=== PATIENT | male | born 1950 | race Caucasian/White ===

== ENCOUNTER → 2016-06-10 | Outpatient (CLI) | payer BC ==
--- NOTE | 2016-06-10 10:10 | XR ---
EXAMINATION TYPE: XR chest 2V DATE OF EXAM: 06/10/2016 10:02 AM COMPARISON: 11/06/2015 HISTORY: Shortness of breath TECHNIQUE: Frontal and lateral views of the chest are obtained. FINDINGS: Scattered senescent parenchymal changes noted. Hyperinflation compatible with COPD. No evidence for infiltrate. Postinflammatory scarring right upper lobe. Heart size is stable. Mediastinal structures are stable and grossly unremarkable. No evidence for hilar prominence. Degenerative changes dorsal spine. IMPRESSION: 1. No evidence for acute pulmonary disease.
== END | disposition home or self-care (01) ==
LOC: RADXRMAIN 09:53
PROVIDERS: ATTEND Family Medicine
DX: R07.89 Other chest pain (principal)
CPT/HCPCS: 71020

== ENCOUNTER 2018-07-26 23:53 | Inpatient (IN) | payer MEDICARE ==
[2018-07-27 00:31] LABS: Basophils # (A) 0.1 k/uL (0-0.2); Basophils % (A) 1 %; Eosinophils # (A) 0.3 k/uL (0-0.7); Eosinophils % (A) 3 %; HCT 41.6 % (39.0-53.0); HGB 14.2 gm/dL (13.0-17.5); Lymphocytes # (A) 3.5 k/uL (1.0-4.8); Lymphocytes % (A) 33 %; MCH 30.9 pg (25.0-35.0); MCHC 34.2 g/dL (31.0-37.0); MCV 90.3 fL (80.0-100.0); Mean Platelet Volume 6.8; Monocytes # (A) 0.4 k/uL (0-1.0); Monocytes % (A) 4 %; Neutrophils # (A) 6.1 k/uL (1.3-7.7); Neutrophils % (A) 57 %; Platelet Count 285 k/uL (150-450); RDW 14.3 % (11.5-15.5); WBC 10.6 k/uL (3.8-10.6)
--- NOTE | 2018-07-27 00:42 | XR ---
EXAM: XR Chest, 1 View CLINICAL HISTORY: ITS.REASON XR Reason: dyspnea TECHNIQUE: Frontal view of the chest. COMPARISON: Chest radiograph on 06/10/2016 FINDINGS: Hardware: None. Lungs/pleura: Large left-sided pneumothorax. Right basilar atelectasis and/or scarring. Stable mild scarring in the right upper lobe. Heart/mediastinum: Mild rightward shift of the mediastinal structures suggests tension component. Stable cardiomediastinal silhouette. Stable elevation of the right hemidiaphragm. Soft tissues: Unremarkable. Bones: No acute fracture. Upper abdomen: Normal. IMPRESSION: Large left-sided pneumothorax with probable mild tension component. <MYCVCSECTION> Critical Value Communications 07/27/18 00:43 Call Doctor Regarding Pneumothorax, called Dr. Ac on 07/27 00:43 (-04:00)
--- NOTE | 2018-07-27 00:43 | ED ---
SOB HPI - General Chief Complaint: Shortness of Breath Stated Complaint: SOB Time Seen by Provider: 07/26/18 23:57 Source: patient Mode of arrival: EMS Limitations: no limitations - History of Present Illness Initial Comments: This patient is a 67-year-old man who presents with complaint of dyspnea. He states that he feels like it is similar to previous pneumothorax that he had. The patient states that things should come on in the evening but were initially not that bad. He was feeling a little short of breath. He states that he had been checking his pulse oximetry readings at home with a home monitor and they were in the upper 80s. The patient states that after a period of time, probably a couple of hours he was feeling worse and the saturations were low 80s and one reading was 79. He then felt he should be seen here. The patient is denying chest pain. He denies any trauma. He states he has had previous pneumothorax on the right. He estimates this was therefore years ago. He states that he was told he had a bleb. Remainder of the review of systems is negative. MD Complaint: shortness of breath -: hour(s) Consistency: constant Improves With: nothing Worsens With: nothing Known History Of: other (Previous pneumothorax) Treatments Prior to Arrival: none - Related Data Home Oxygen Therapy: No Home Medications Medication Instructions Recorded Confirmed Atorvastatin [Lipitor] 80 mg PO HS 02/19/15 07/27/18 Sertraline [Zoloft] 100 mg PO DAILY 02/19/15 07/27/18 Levothyroxine Sodium [Synthroid] 150 mcg PO DAILY 07/27/18 07/27/18 Metoprolol Tartrate [Lopressor] 25 mg PO BID 07/27/18 07/27/18 Allergies Allergy/AdvReac Type Severity Reaction Status Date / Time venom-honey bee Allergy Swelling Verified 07/27/18 00:16 [bee venom (honey bee)] Review of Systems ROS Statement: Those systems with pertinent positive or pertinent negative responses have been documented in the HPI. ROS Other: All systems not noted in ROS Statement are negative. Constitutional: Denies: fever, chills Respiratory: Reports: dyspnea. Denies: cough, wheezes, hemoptysis Cardiovascular: Denies: chest pain, palpitations, edema, syncope Gastrointestinal: Denies: abdominal pain, vomiting, diarrhea, melena, nilson tochezia Genitourinary: Denies: dysuria, hematuria Musculoskeletal: Denies: back pain Skin: Denies: rash Neurological: Denies: headache Hematological/Lymphatic: Denies: easy bleeding Past Medical History Past Medical History: Coronary Artery Disease (CAD), Hyperlipidemia, Hypertension, Osteoarthritis (OA), Thyroid Disorder Additional Past Medical History / Comment(s): 1-16 dmitted with c/o sob dx pneumothorax. other past medicl hx includes: occ tinnitus, palpitations, fx rt hand(casted) skin ca., hypothyroid History of Any Multi-Drug Resistant Organisms: None Reported Past Surgical History: Back Surgery, Heart Catheterization With Stent Additional Past Surgical History / Comment(s): hemorroidectomy, back sx d/t bulgin disc, rt hand sx to repair severed tendon, colonoscopy x2, skin ca on nose removed. Past Anesthesia/Blood Transfusion Reactions: No Reported Reaction Date of Last Stent Placement:: unk Past Psychological History: No Psychological Hx Reported Smoking Status: Former smoker Past Alcohol Use History: None Reported Past Drug Use History: None Reported - Past Family History Mother Family Medical History: Dementia Father Family Medical History: Cancer, Liver Disease Additional Family Medical History / Comment(s): liver cancer General Exam Limitations: no limitations General appearance: alert, in distress Head exam: Present: atraumatic, normocephalic Eye exam: Present: normal appearance. Absent: scleral icterus, conjunctival injection ENT exam: Present: normal oropharynx Neck exam: Present: normal inspection Respiratory exam: Present: respiratory distress (Tachypnea), decreased breath sounds (Left-sided). Absent: wheezes, rales, rhonchi, stridor, chest wall tenderness, accessory muscle use, prolonged expiratory Cardiovascular Exam: Present: normal rhythm, tachycardia, normal heart sounds. Absent: systolic murmur, diastolic murmur, rubs, gallop GI/Abdominal exam: Present: soft. Absent: distended, tenderness, guarding, rebound, rigid, mass Extremities exam: Present: normal inspection, normal capillary refill. Absent: pedal edema, calf tenderness Back exam: Present: normal inspection. Absent: CVA tenderness (R), CVA tenderness (L) Neurological exam: Present: alert Skin exam: Present: warm, dry, intact, normal color. Absent: rash Course Vital Signs 07/26/18 07/27/18 07/27/18 23:55 00:51 01:00 Temperature 98.1 F Pulse Rate 109 H 101 H 96 Respiratory 24 16 17 Rate Blood Pressure 208/133 153/99 O2 Sat by Pulse 89 L 93 L 94 L Oximetry 07/27/18 07/27/18 07/27/18 01:10 01:20 01:30 Temperature Pulse Rate 92 101 H 104 H Respiratory 17 19 17 Rate Blood Pressure 152/100 151/97 151/97 O2 Sat by Pulse 95 94 L 95 Oximetry 07/27/18 07/27/18 07/27/18 01:40 01:50 02:00 Temperature Pulse Rate 91 94 91 Respiratory 18 19 16 Rate Blood Pressure 142/102 180/110 180/110 O2 Sat by Pulse 96 94 L 94 L Oximetry 07/27/18 07/27/18 07/27/18 02:10 02:20 02:30 Temperature Pulse Rate 95 98 92 Respiratory 16 17 24 Rate Blood Pressure 153/106 183/114 183/114 O2 Sat by Pulse 94 L 94 L 97 Oximetry 07/27/18 07/27/18 07/27/18 02:40 02:50 03:00 Temperature Pulse Rate 90 87 88 Respiratory 13 15 14 Rate Blood Pressure 154/135 132/90 132/90 O2 Sat by Pulse 97 98 97 Oximetry 07/27/18 07/27/18 07/27/18 03:10 03:20 03:30 Temperature Pulse Rate 86 89 86 Respiratory 14 15 13 Rate Blood Pressure 116/82 108/76 108/76 O2 Sat by Pulse 96 98 97 Oximetry 07/27/18 07/27/18 07/27/18 03:40 03:50 04:00 Temperature Pulse Rate 87 81 82 Respiratory 14 13 Rate Blood Pressure 99/73 108/63 108/63 O2 Sat by Pulse 98 99 99 Oximetry Procedures - Chest Tube Insertion Consent Obtained: written consent Side of Procedure: left Indication: Pneumothorax Placed on monitor/pulse oximetry: Yes Site Prep: Chloroprep, Sterile Drape Applied Local Anesthesia: Lidocaine 1% Insertion Site: Other (Anterior approach) Scalpel: #11 Open into Pleural Space Using: Trocar Tube Size ([place]): Other Returns: Air Sutured in Place: No (Self adhesive) Attached to Suction: Yes (Syringe) Repeat X-ray Results: Lung Inflated Patient Tolerated Procedure: other (Second placement required) Medical Decision Making - Medical Decision Making This patient is 67-year-old man with our appears to be spontaneous pneumothorax. I had discussion of risks and benefits regarding treatment of this, and patient is requesting to try the Thora Vent rather than tube thoracostomy. The initial placement did obtain approximately 100 mLs of air before there was no further air obtained. Chest x-ray does not show satisfactory placement, therefore I did replace the tube using a fresh kit, with approximately 500 mLs of air out by syringe. The chest x-ray does show good placement and reinflation of the lung. Discussed outpatient versus observation, the patient does feel better though there is some residual pneumothorax so he'll be admitted for 100% O2 case discussed with his physician Dr. Pinto, and will have consultation with cardiothoracic surgery. - Lab Data Result diagrams: 07/27/18 00:05 07/27/18 00:05 Lab Results 07/27/18 07/27/18 07/27/18 Range/Units 00:05 00:05 00:05 WBC 10.6 (3.8-10.6) k/uL RBC 4.60 (4.30-5.90) m/uL Hgb 14.2 (13.0-17.5) gm/dL Hct 41.6 (39.0-53.0) % MCV 90.3 (80.0-100.0) fL MCH 30.9 (25.0-35.0) pg MCHC 34.2 (31.0-37.0) g/dL RDW 14.3 (11.5-15.5) % Plt Count 285 (150-450) k/uL Neutrophils % 57 % Lymphocytes % 33 % Monocytes % 4 % Eosinophils % 3 % Basophils % 1 % Neutrophils # 6.1 (1.3-7.7) k/uL Lymphocytes # 3.5 (1.0-4.8) k/uL Monocytes # 0.4 (0-1.0) k/uL Eosinophils # 0.3 (0-0.7) k/uL Basophils # 0.1 (0-0.2) k/uL PT (9.0-12.0) sec INR (<1.2) APTT (22.0-30.0) sec D-Dimer (<0.60) mg/L FEU Sodium 142 (137-145) mmol/L Potassium 4.0 (3.5-5.1) mmol/L Chloride 105 (98-107) mmol/L Carbon Dioxide 25 (22-30) mmol/L Anion Gap 12 mmol/L BUN 20 (9-20) mg/dL Creatinine 1.10 (0.66-1.25) mg/dL Est GFR (CKD-EPI)AfAm 81 (>60 ml/min/1.73 sqM) Est GFR (CKD-EPI)NonAf 70 (>60 ml/min/1.73 sqM) Glucose 123 H (74-99) mg/dL Calcium 10.6 H (8.4-10.2) mg/dL Total Bilirubin 0.4 (0.2-1.3) mg/dL AST 32 (17-59) U/L ALT 31 (21-72) U/L Alkaline Phosphatase 105 (38-126) U/L Troponin I (0.000-0.034) ng/mL NT-Pro-B Natriuret Pep 48 pg/mL Total Protein 8.2 (6.3-8.2) g/dL Albumin 5.0 (3.5-5.0) g/dL 07/27/18 07/27/18 Range/Units 00:05 00:05 WBC (3.8-10.6) k/uL RBC (4.30-5.90) m/uL Hgb (13.0-17.5) gm/dL Hct (39.0-53.0) % MCV (80.0-100.0) fL MCH (25.0-35.0) pg MCHC (31.0-37.0) g/dL RDW (11.5-15.5) % Plt Count (150-450) k/uL Neutrophils % % Lymphocytes % % Monocytes % % Eosinophils % % Basophils % % Neutrophils # (1.3-7.7) k/uL Lymphocytes # (1.0-4.8) k/uL Monocytes # (0-1.0) k/uL Eosinophils # (0-0.7) k/uL Basophils # (0-0.2) k/uL PT 10.3 (9.0-12.0) sec INR 1.0 (<1.2) APTT 24.0 (22.0-30.0) sec D-Dimer 0.44 (<0.60) mg/L FEU Sodium (137-145) mmol/L Potassium (3.5-5.1) mmol/L Chloride (98-107) mmol/L Carbon Dioxide (22-30) mmol/L Anion Gap mmol/L BUN (9-20) mg/dL Creatinine (0.66-1.25) mg/dL Est GFR (CKD-EPI)AfAm (>60 ml/min/1.73 sqM) Est GFR (CKD-EPI)NonAf (>60 ml/min/1.73 sqM) Glucose (74-99) mg/dL Calcium (8.4-10.2) mg/dL Total Bilirubin (0.2-1.3) mg/dL AST (17-59) U/L ALT (21-72) U/L Alkaline Phosphatase (38-126) U/L Troponin I <0.012 (0.000-0.034) ng/mL NT-Pro-B Natriuret Pep pg/mL Total Protein (6.3-8.2) g/dL Albumin (3.5-5.0) g/dL - EKG Data -: EKG Interpreted by Md EKG shows normal: sinus rhythm, axis (Normal), intervals (Normal), QRS complexes (Normal), ST-T waves (Normal) Rate: normal (Rate 94 bpm) Disposition Clinical Impression: Spontaneous pneumothorax Disposition: ADMITTED IP TO THIS [facility] Condition: Good Is patient prescribed a controlled substance at d/c from ED?: No
[2018-07-27 00:46] LABS: Calcium 10.6 mg/dL (8.4-10.2); Total Bilirubin 0.4 mg/dL (0.2-1.3); Total Protein 8.2 g/dL (6.3-8.2)
[2018-07-27 01:09] LABS: D-Dimer 0.44 mg/L FEU (<0.60); Prothrombin Time 10.3 sec (9.0-12.0)
[2018-07-27] MEDS: MORPHINE SULFATE 4 MG/ML SYRINGE IV STA ×2 (01:28→02:19)
[2018-07-27] MEDS: LIDOCAINE 1% INJ 10MG/ML (20 ML MDV) SQ ONE ×2 (01:47→02:22)
--- NOTE | 2018-07-27 02:19 | XR ---
EXAM: XR Chest, 1 View CLINICAL HISTORY: ITS.REASON XR Reason: pneumo TECHNIQUE: Frontal view of the chest. COMPARISON: Chest radiograph on 07/27/2018 at 00 14 hours FINDINGS: Hardware: A left-sided pleural drainage catheter does not appear to be located within the left chest cavity. Lungs/pleura: Increased large left pneumothorax with atelectasis in the left lung. Similar atelectasis versus scarring in the right lower lung. Similar scarring in the right upper lobe. Heart/mediastinum: Mild rightward shift of the mediastinal structures again suggests mild tension component. Soft tissues: Probable nipple shadow projected over the left lower lung. Bones: No acute fracture. Upper abdomen: Normal. IMPRESSION: Increased large left pneumothorax. Mild rightward shift of the mediastinal structures again suggests tension component. A left-sided pleural drainage catheter does not appear to be located within the left chest cavity. <MYCVCSECTION> Critical Value Communications 07/27/18 02:25 Call Doctor Regarding Other, called AMENA Billings on 07/27 02:25 (-04:00)
--- NOTE | 2018-07-27 02:46 | XR ---
EXAM: XR Chest, 1 View CLINICAL HISTORY: ITS.REASON XR Reason: vent TECHNIQUE: Frontal view of the chest. COMPARISON: Chest radiograph on 07/27/2018 at 0157 hours FINDINGS: Hardware: Left pleural drainage catheter with attached syringe projected over the left lung apex. Lungs/pleura: Decreased left-sided pneumothorax with small residual pneumothorax most evident at the left lung base. Left basilar atelectasis. Similar atelectasis versus scarring at the right lung base. Similar mild atelectasis of the right upper lobe. Heart/mediastinum: Decreased rightward midline shift of the mediastinal structures. Soft tissues: Unremarkable. Bones: No acute fracture. Upper abdomen: Normal. IMPRESSION: 1. Left pleural drainage catheter with attached syringe projected over the left lung apex. 2. Decreased left-sided pneumothorax with small residual pneumothorax most evident at the left lung base.
[2018-07-27] MEDS ORDERED: ONDANSETRON 4 MG/2 ML VIAL IVP PRN (02:54)
[2018-07-27] MEDS ORDERED: NALOXONE 0.4 MG/ML 1 ML VIAL IV PRN (02:54)
[2018-07-27] MEDS ORDERED: HYDROmorphone 0.5 MG/0.5 ML SYRINGE IVP PRN (02:54)
[2018-07-27] MEDS ORDERED: MORPHINE SULFATE 4 MG/ML SYRINGE IV PRN (02:54)
[2018-07-27] MEDS: SODIUM CHLORIDE 0.9% 1,000 ML IV SCH ×2 (04:32→10:50)
[2018-07-27] MEDS: LEVOTHYROXINE 75 MCG TAB PO SCH (06:17)
[2018-07-27] MEDS: SERTRALINE 100 MG TAB PO SCH (08:18)
[2018-07-27] MEDS: KETOROLAC 30 MG/ML 1 ML VIAL IVP SCH ×3 (08:18→18:07)
[2018-07-27] MEDS: METOPROLOL TARTRATE 25 MG TAB PO SCH ×2 (08:18→22:18)
--- NOTE | 2018-07-27 08:52 | P.GSCN ---
<Tasia Chavez - Last Filed: 07/27/18 08:27> History of Present Illness Consult date: 07/27/18 Reason for Consult: Left-sided spontaneous pneumothorax, surgical recommendations Requesting physician: Oswald Ac History of present illness: This is a 67-year-old gentleman who follows on an outpatient basis with Dr. Jagdish Pinto. He has a previous medical history of spontaneous pneumothorax with bullous emphysema on the right status post VATS and blebectomy with mechanical pleurodesis on 10/30/2015, coronary artery disease with stent placement 6 years ago, hypertension, hyperlipidemia, hypothyroidism, and previous tobacco dependence. He presented to [facility] emergency room yesterday after feeling short of breath with decreased oxygen saturation for most of the day. He denied any chest pain or any other aggravating or alleviating symptoms. He states his shortness of breath started yesterday morning and he tried putting off coming to the emergency room, however as the day progressed and he wasn't getting any better he decided he better come in. He states his breathing was similar to his previous pneumothoraces. In the emergency room a chest x-ray was completed demonstrating a large left-sided pneumothorax. A Thora-vent was placed by the emergency room physicians initially without good placement and without expansion of the left lung. That thoravent was removed and a new one was placed, subsequent chest x-ray demonstrated improved expansion of the lung with small residual apical and basilar pneumothorax. Dr. Pollock from cardiothoracic surgery was consulted regarding thoravent management and surgical recommendations for thoracoscopy to the left side. Review of Systems Review of systems was completed and was negative except as noted - Respiratory Respiratory Comment(s): Decreased oxygen saturation Reports as per HPI, Reports dyspnea Past Medical History Past Medical History: Coronary Artery Disease (CAD), Hyperlipidemia, Hypertension, Osteoarthritis (OA), Thyroid Disorder Additional Past Medical History / Comment(s): February 2015 admitted with right- sided pneumothorax, and again in October 2015 right-sided pneumothorax. occ tinnitus, palpitations, fx rt hand(casted) skin ca., hypothyroid History of Any Multi-Drug Resistant Organisms: None Reported Past Surgical History: Back Surgery, Heart Catheterization With Stent Additional Past Surgical History / Comment(s): hemorroidectomy, back sx d/t bulgin disc, rt hand sx to repair severed tendon, colonoscopy x2, skin ca on nose removed. Right-sided VATS with blebectomy and mechanical pleurodesis on 10/30/2015 Past Anesthesia/Blood Transfusion Reactions: No Reported Reaction Date of Last Stent Placement:: unk Past Psychological History: No Psychological Hx Reported Smoking Status: Former smoker Past Alcohol Use History: None Reported Past Drug Use History: None Reported - Past Family History Mother Family Medical History: Dementia Father Family Medical History: Cancer, Liver Disease Additional Family Medical History / Comment(s): liver cancer Medications and Allergies Home Medications Medication Instructions Recorded Confirmed Type Atorvastatin [Lipitor] 80 mg PO HS 02/19/15 07/27/18 History Sertraline [Zoloft] 100 mg PO DAILY 02/19/15 07/27/18 History Levothyroxine Sodium [Synthroid] 150 mcg PO DAILY 07/27/18 07/27/18 History Metoprolol Tartrate [Lopressor] 25 mg PO BID 07/27/18 07/27/18 History Allergies Allergy/AdvReac Type Severity Reaction Status Date / Time venom-honey bee Allergy Swelling Verified 07/27/18 00:16 [bee venom (honey bee)] Surgical - Exam Vital Signs Temp Pulse Resp BP Pulse Ox 98.1 F 109 H 24 208/133 89 L 07/26/18 23:55 07/26/18 23:55 07/26/18 23:55 07/26/18 23:55 07/26/18 23:55 - General well developed, well nourished, no distress, no pain, obese - Eyes PERRL, normal ocular movement - ENT no hearing loss - Neck no masses, no bruits, trachea midline - Respiratory Lungs sounds diminished on the left. Respirations even, nonlabored. Currently on nonrebreather with oxygen saturation 100%. Left-sided thoravent present, positive air leak. - Cardiovascular S1, S2 present. Regular rate and rhythm. Palpable peripheral pulses bilaterally. No edema present. No calf pain or tenderness noted. - Abdomen Abdomen: soft, non tender, bowel sounds - Genitourinary Deferred - Rectum Deferred - Integumentary no rash, no growths - Neurologic normal coordination, normal sensation - Musculoskeletal normal gait, normal posture - Psychiatric oriented to time, oriented to person, oriented to place, speech is normal, memory intact Results - Labs 07/27/18 00:05 07/27/18 00:05 Abnormal Lab Results - Last 24 Hours (Table) 07/27/18 Range/Units 00:05 Glucose 123 H (74-99) mg/dL Calcium 10.6 H (8.4-10.2) mg/dL Diabetes panel 07/27/18 Range/Units 00:05 Sodium 142 (137-145) mmol/L Potassium 4.0 (3.5-5.1) mmol/L Chloride 105 (98-107) mmol/L Carbon Dioxide 25 (22-30) mmol/L BUN 20 (9-20) mg/dL Creatinine 1.10 (0.66-1.25) mg/dL Glucose 123 H (74-99) mg/dL Calcium 10.6 H (8.4-10.2) mg/dL AST 32 (17-59) U/L ALT 31 (21-72) U/L Alkaline Phosphatase 105 (38-126) U/L Total Protein 8.2 (6.3-8.2) g/dL Albumin 5.0 (3.5-5.0) g/dL Calcium panel 07/27/18 Range/Units 00:05 Calcium 10.6 H (8.4-10.2) mg/dL Albumin 5.0 (3.5-5.0) g/dL Pituitary panel 07/27/18 Range/Units 00:05 Sodium 142 (137-145) mmol/L Potassium 4.0 (3.5-5.1) mmol/L Chloride 105 (98-107) mmol/L Carbon Dioxide 25 (22-30) mmol/L BUN 20 (9-20) mg/dL Creatinine 1.10 (0.66-1.25) mg/dL Glucose 123 H (74-99) mg/dL Calcium 10.6 H (8.4-10.2) mg/dL Adrenal panel 07/27/18 Range/Units 00:05 Sodium 142 (137-145) mmol/L Potassium 4.0 (3.5-5.1) mmol/L Chloride 105 (98-107) mmol/L Carbon Dioxide 25 (22-30) mmol/L BUN 20 (9-20) mg/dL Creatinine 1.10 (0.66-1.25) mg/dL Glucose 123 H (74-99) mg/dL Calcium 10.6 H (8.4-10.2) mg/dL Total Bilirubin 0.4 (0.2-1.3) mg/dL AST 32 (17-59) U/L ALT 31 (21-72) U/L Alkaline Phosphatase 105 (38-126) U/L Total Protein 8.2 (6.3-8.2) g/dL Albumin 5.0 (3.5-5.0) g/dL - Imaging Chest x-ray: report reviewed, image reviewed EKG: image reviewed Assessment and Plan Assessment: 1. Left-sided spontaneous pneumothorax, status post thoravent placement by the emergency room physicians 2. History of spontaneous pneumothorax 2 with bullous emphysema on the right side, status post VATS with blebectomy and mechanical pleurodesis on 10/30/2015 3. History of coronary artery disease with stent placement 6 years ago 4. Hypertension 5. Hyperlipidemia 6. Hypothyroidism 7. Previous tobacco dependence Plan: The patient was seen and examined at the bedside. Chart/diagnostics were reviewed. The case will be discussed in detail with Dr. Pollock. The patient is currently in no acute distress. States pain is well-controlled, denies shortness of breath. We will obtain follow-up chest x-ray. If pneumothorax still exists thoravent will be placed to suction. Wean O2 as tolerated. Incentive spirometry ordered, encourage use 10 times every hour while awake. Encourage continued smoking cessation. Toradol added for pain control. Increase activity, ambulate as tolerated. Medical management of other comorbidities per primary care service. Will make further recommendations regarding thoravent management and possibility of thoracoscopy once the patient has been seen and examined by Dr. Pollock. Thank you for this consult. We look forward to working with you in the care of this patient. Time with Patient: Greater than 30 <Sergio Pollock - Last Filed: 08/01/18 13:48> Surgical - Exam Vital Signs Temp Pulse Resp BP Pulse Ox 98.1 F 109 H 24 208/133 89 L 07/26/18 23:55 07/26/18 23:55 07/26/18 23:55 07/26/18 23:55 07/26/18 23:55 Results - Labs 07/30/18 07:31 07/30/18 07:31 Assessment and Plan Plan: The patient was seen and examined. I agree with the above assessment and plan. The patient is a 67-year-old male with a history of right VATS secondary to spontaneous pneumothorax [place] [address] Alberto. He presented to the emergency department last night with recurrence of his shortness of breath. Workup revealed a large spontaneous pneumothorax on the left side. A Thoravent was placed in the emergency department and the patient's chest x-ray today reveals near resolution of his pneumothorax. A computed tomography scan of the chest was ordered. At this point we will continue with conservative therapy. He may need a left VATS with bleb resection on this admission.
--- NOTE | 2018-07-27 09:35 | XR ---
EXAMINATION TYPE: XR chest 1V portable DATE OF EXAM: 07/27/2018 COMPARISON: 07/27/2018 HISTORY: Follow-up pneumothorax TECHNIQUE: Single frontal view of the chest is obtained. FINDINGS: There is change in position of the left-sided Thoravent with coiled thoracostomy tube bein g. There is increasing size of the left-sided pneumothorax now having 4.2 cm in maximum pleural separ ation at the left lung base. There is approximately 1 cm of maximal pleural separation at the left mi dlung and 2.3 cm at the left lung apex. Resultant multifocal left perihilar subsegmental atelectasis is seen. Cardiomediastinal silhouette is overall midline given patient positioning. Chronic pleural r eaction at the right costophrenic angle is seen. Multifocal right-sided atelectasis is also noted. IMPRESSION: Thoracostomy tubing of the Thora vent appears unchanged in position, possibly kinked as there is increasing size of the left pneumothorax in comparison to the prior. Volume is estimated at approximately 30%. A Bledsoe level critical message alert has been initiated for Tasia Chavez via the [employer]ical Results System on 07/27/2018 9:33 AM. This message alert has been sent to Tasia Chavez via the pr eferences provided by the clinician for the receipt of Radiology Critical Findings. Message ID [id number].
--- NOTE | 2018-07-27 16:51 | CT ---
EXAMINATION TYPE: CT chest wo con DATE OF EXAM: 07/27/2018 COMPARISON: Chest x-ray 07/27/2018, prior CT chest 10/28/2015 HISTORY: Pneumothorax. Evaluate bullous disease. CT DLP: 589.6 mGycm. Automated Exposure Control for Dose Reduction was Utilized. TECHNIQUE: CT scan of the thorax is performed without IV contrast. FINDINGS: LUNGS: Postop changes are noted in the right upper chest for previous apical bullous disease, volume loss is present in the right hemithorax, difficult to exclude tension pneumothorax, correlate with pa tient's chest tube on the left. There is some paraseptal emphysematous change in the right upper lobe . Basilar scarring is noted on the right. Large left sided pneumothorax is present. There is a thorac ic vent present with the distal tip along the left pleural margin in the upper left hemithorax. Basil ar consolidation is present. Extensive bullous emphysematous changes are present especially in the an terior margin of the collapsed lung. MEDIASTINUM: Lack of IV contrast is noted to limit evaluation for mediastinal and especially hilar ad enopathy. There are no definitive greater than 1 cm hilar or mediastinal lymph nodes. No cardiomega ly or pericardial effusion is seen. There are coronary artery calcifications present. OTHER: Liver shows low attenuation likely due to hepatic steatosis. Subcutaneous emphysema present in the soft tissues of the anterior left upper chest IMPRESSION: Extensive bullous emphysematous change. Postop changes. Correlate to exclude tension pneu mothorax.
[2018-07-27] MEDS ORDERED: IPRATROPIUM-ALBUTEROL 3 ML NEB IH STA (18:12)
--- NOTE | 2018-07-27 19:03 | XR ---
EXAMINATION: XR chest 1V portable DATE AND TIME: 07/27/2018 6:30 PM CLINICAL INDICATION: Resp distress COMPARISON: 07/27/2018 at 9:06 AM FINDINGS: AP portable upright radiograph. The left pneumothorax has increased when compared to the prior study. The previous upper and mid and lower measurements were 2.3 cm, 1.0 cm, and 4.2 cm. The current upper and mid and lower measurements are 2.2 cm, 3.0 cm, and 5.0 cm. There is associated mild compressive left atelectasis. On the right, the lung appears clear, a small pleural effusion is redemonstrated, and there is no pne umothorax. Discussed findings with the patient's nurse just now, to ensure intact communications. IMPRESSION: INCREASING PNEUMOTHORAX.
[2018-07-27 20:17] LABS: Glucose,Whole Blood 168 mg/dL (75-99)
[2018-07-27] MEDS: MIDAZOLAM (PF) 2 MG/2 ML VIAL IV ONE ×2 (20:40→20:52)
[2018-07-27] MEDS ORDERED: MIDAZOLAM (PF) 2 MG/2 ML VIAL IV ONE (21:01)
--- NOTE | 2018-07-27 21:59 | XR ---
EXAMINATION: XR chest 1V portable DATE AND TIME: 07/27/2018 9:23 PM CLINICAL INDICATION: PHH; chest tube placement TECHNIQUE: Departmental protocol COMPARISON: 07/27/2018 radiograph at 6:23 PM FINDINGS: The present study was obtained in the AP portable supine position. Since prior study a left chest tub e is been placed. The left pleural catheter is redemonstrated. There is interval improvement in the volume of pneumothorax, with prominent degree. On the supine rad iograph, the remaining pneumothorax is related to the left hemidiaphragm. The mediastinum is currently midline. IMPRESSION: INTERVAL IMPROVEMENT POST LEFT CHEST TUBE PLACEMENT.
[2018-07-27] MEDS: ATORVASTATIN 80 MG TAB PO SCH (22:18)
[2018-07-27] MEDS: HYDROcodone/APAP 5-325MG 1 EACH TAB PO PRN (22:53)
[2018-07-28] MEDS: KETOROLAC 30 MG/ML 1 ML VIAL IVP SCH ×4 (00:17→17:31)
[2018-07-28] MEDS: HYDROcodone/APAP 5-325MG 1 EACH TAB PO PRN ×3 (04:47→22:00)
[2018-07-28 05:04] LABS: Basophils % (A) 0 %; Eosinophils # (A) 0.2 k/uL (0-0.7); Eosinophils % (A) 3 %; HCT 35.4 % (39.0-53.0); HGB 11.6 gm/dL (13.0-17.5); Lymphocytes # (A) 1.4 k/uL (1.0-4.8); Lymphocytes % (A) 22 %; MCHC 32.7 g/dL (31.0-37.0); MCV 91.9 fL (80.0-100.0); Mean Platelet Volume 6.6; Monocytes # (A) 0.3 k/uL (0-1.0); Monocytes % (A) 5 %; Neutrophils # (A) 4.4 k/uL (1.3-7.7); Neutrophils % (A) 69 %; Platelet Count 156 k/uL (150-450); RBC 3.86 m/uL (4.30-5.90); RDW 14.4 % (11.5-15.5); WBC 6.3 k/uL (3.8-10.6)
--- NOTE | 2018-07-28 05:21 | OP ---
OPERATIVE REPORT DATE OF PROCEDURE: 07/27/2018 PREOPERATIVE DIAGNOSIS: Spontaneous left pneumothorax. POSTOPERATIVE DIAGNOSE: Spontaneous left pneumothorax. PROCEDURE: Placement of left pleural chest tube. SURGEON: Sergio Pollock MD TERMINAL OPERATOR: None. ANESTHESIA: Local with IV sedation. COMPLICATIONS: None. INDICATION: The patient is a 67-year-old male with a history of right-sided spontaneous pneumothorax, status post VATS with bleb resection and pleurodesis, who presented to the emergency department yesterday with his first episode of left-sided pneumothorax. CT scan revealed several blebs. A Thora-Vent was placed in the emergency department. I was called urgently this evening because the patient has become acutely hypoxic and dyspneic. Chest x-ray revealed worsening left-sided pneumothorax. The Thora- Vent does not appear to be functioning properly. Placement of a chest tube was recommended. The risks, benefits, and alternatives of this procedure were discussed with the patient. All his questions were answered. Consent was obtained. FINDINGS: There was a large mcknight of air upon entry into the left pleural space. PROCEDURE IN DETAIL: In the ICU, the patient's left chest and flank were prepped and draped in the usual sterile fashion. A total of 4 mg of intravenous Versed was administered along with 4 mg of intravenous morphine. Approximately 20 mL of local anesthetic was infiltrated in the skin and subcutaneous tissue as well. An incision was made at approximately the 6th intercostal space along the anterior axillary line. Dissection was taken down through the subcutaneous tissue. The left pleural space was entered bluntly. A large mcknight of air was noted upon entry to the pleural space. A straight 28-Welsh chest tube was carefully inserted into the pleural space. It was secured to an atrium with evidence of air leak. Chest tube was secured to the skin using Ethibond sutures. Sterile dressing was applied. A followup chest x-ray revealed good placement of the chest tube with near resolution of the pneumothorax. The patient appeared to tolerate the procedure well. There were no immediate complications. MMODL / IJN: [id number] / MTDD
[2018-07-28 05:41] LABS: African American GFR (CKD) >90 (>60 ml/min/1.73 sqM); Anion Gap 6 mmol/L; Blood Urea Nitrogen 18 mg/dL (9-20); Calcium 8.9 mg/dL (8.4-10.2); Carbon Dioxide 29 mmol/L (22-30); Chloride 106 mmol/L (98-107); Glucose 95 mg/dL (74-99); Potassium 4.3 mmol/L (3.5-5.1); Sodium 141 mmol/L (137-145)
[2018-07-28] MEDS: LEVOTHYROXINE 75 MCG TAB PO SCH (06:08)
--- NOTE | 2018-07-28 07:47 | XR ---
EXAMINATION TYPE: XR chest 1V portable DATE OF EXAM: 07/28/2018 CLINICAL HISTORY: Difficulty breathing and left-sided chest tube progress study. TECHNIQUE: Single AP portable upright view of the chest is obtained. COMPARISON: Chest x-ray and CT chest from one day earlier FINDINGS: There is persistent left lateral chest tube with small inferior lateral left pneumothorax and adjacent subcutaneous emphysema with lateral left basilar compressive atelectasis. No mediastinal shift. Background chronic emphysematous change with scattered right lateral and basilar parenchymal scarring. Cardiac silhouette size is stable and upper limits of normal. There is right medial suprahi lar surgical change and scarring redemonstrated. Osseous structures are intact. IMPRESSION: Overall stable findings, persistent but stable small lateral left basilar pneumothorax despite chest tube placement. Chronic emphysematous and parenchymal changes redemonstrated.
[2018-07-28] MEDS: METOPROLOL TARTRATE 25 MG TAB PO SCH ×2 (08:47→22:00)
--- NOTE | 2018-07-28 08:49 | P.PN ---
Subjective Progress Note Date: 07/28/18 Principal diagnosis: Left sided spontaneous pneumothorax. Previous medical history of spontaneous pneumothorax with bullous emphysema on the right status post VATS and blebectomy with mechanical pleurodesis on 10/30/2015, coronary artery disease with stent placement, hypertension, hyperlipidemia, hypothyroidism, and previous tobacco dependence POD #2 placement of Thora-vent by emergency room physicians POD #1 placement of left thoracostomy tube The patient is currently sitting up in bed in no acute distress the intensive care unit. He was transferred last night after he developed respiratory distress, chest x-ray was completed demonstrating increase in left pneumothorax. Left thoracostomy tube was placed by Dr. Pollock at the bedside in the intensive care unit last night with expansion of the left lung. Patient's oxygenation improved, and he stated he felt better. States pain is controlled on current medication regimen. No new complaints. Objective - Vital Signs Vital signs: Vital Signs Temp 97.6 F 07/28/18 04:00 Pulse 66 07/28/18 07:00 Resp 16 07/28/18 07:00 BP 126/80 07/28/18 07:00 Pulse Ox 95 07/28/18 07:00 Intake & Output 07/27/18 07/28/18 07/28/18 18:59 06:59 18:59 Intake Total 230 20 Output Total 1000 542 5 Balance -1000 -312 15 Weight 116.7 kg Intake: IV 230 20 Sodium Chloride 0.9% 1, 180 20 000 ml @ 150 mls/hr IV . Q6H40M [facility] Rx#:[id number] ceFAZolin 1,000 mg In 50 Sodium Chloride 0.9% 50 ml @ 100 mls/hr IVPB Q8HR [facility] Rx#:[id number] Output: Chest Tube Drainage 92 5 Chest Tube Left 80 5 Thora-Vent Left Upper 12 Anterior Chest Urine 1000 450 Other: Voiding Method Urinal Urinal - Constitutional General appearance: Present: cooperative, no acute distress, obese - Respiratory Details: Lungs sounds diminished on the left. Respirations even, nonlabored. Currently on 6 L high flow nasal cannula with oxygen saturation 95%. Able to achieve 2500 mL on his incentive spirometry. Left-sided thoravent present. Left-sided pleural chest tube present, connected to wall suction, 75 mL serous drainage overnight, 90 mL since placement, positive air leak. - Cardiovascular Details: S1, S2 present. Regular rate and rhythm. Palpable peripheral pulses bilaterally. No edema present. No calf pain or tenderness noted. SCDs present. - Gastrointestinal Gastrointestinal Comment(s): Abdomen soft, nontender, nondistended. Active bowel sounds present 4 qu adrants. Tolerating diet. - Genitourinary Genitourinary Comment(s): Voiding clear, yellow urine. - Integumentary Integumentary Comment(s): Skin is warm and dry with evidence of good perfusion. Left pleural chest tube site and thoravent site covered with dry intact dressing. - Neurologic Neurologic: Present: CNII-XII intact - Musculoskeletal Musculoskeletal: Present: gait normal, strength equal bilaterally - Psychiatric Psychiatric: Present: A&O x's 3, appropriate affect, intact judgment & insight - Allied health notes Allied health notes reviewed: nursing - Labs CBC & Chem 7: 07/28/18 04:42 07/28/18 04:42 Labs: Abnormal Lab Results - Last 24 Hours (Table) 07/27/18 07/28/18 Range/Units 20:06 04:42 RBC 3.86 L (4.30-5.90) m/uL Hgb 11.6 L (13.0-17.5) gm/dL Hct 35.4 L (39.0-53.0) % POC Glucose (mg/dL) 168 H (75-99) mg/dL - Imaging and Cardiology Chest x-ray: report reviewed, image reviewed Assessment and Plan Assessment: 1. Left-sided spontaneous pneumothorax, status post thoravent placement by the emergency room physicians 2. Acute hypoxic respiratory distress, increased pneumothorax, status post left thoracostomy tube placement 3. History of spontaneous pneumothorax 2 with bullous emphysema on the right side, status post VATS with blebectomy and mechanical pleurodesis on 10/30/2015 4. History of coronary artery disease with stent placement 6 years ago 5. Hypertension 6. Hyperlipidemia 7. Hypothyroidism 8. Previous tobacco dependence Plan: 1. Continue left thoracostomy tube to continuous wall suction. Monitor for air leak resolution. 2. Will discontinue thoravent today. 3. Wean O2 as tolerated. Encourage incentive spirometry use 10 times every hour while awake. 4. Encourage continued smoking cessation. 5. Pain control with current medication regimen. 6. Will monitor daily x-rays. 7. Increase activity, ambulate as tolerated around the room. Nursing to add extension tubing to suction to allow patient to ambulate. 8. Patient likely will need left-sided VATS with bleb resection and mechanical pleurodesis, timing to be determined. 9. Medical management of other comorbidities per primary care service. 10. Patient is currently stable and does not need ICU care. Will place transfer orders back to [facility] with telemetry, may transfer when bed available. 11. Will continue to monitor and make further recommendations as patient progresses. Time with Patient: Greater than 30
--- NOTE | 2018-07-28 09:48 | P.HPIM ---
History of Present Illness H&P Date: 07/27/18 This is a 67-year-old gentleman presented to the ER with complaints of worsening dyspnea since yesterday morning, in a patient with history of prior nicotine dependence, COPD, spontaneous pneumothorax, with bullous emphysema, blebectomy, pleurodesis, VATS, CAD with stent, hyperlipidemia, hypertension, osteoarthritis, hypothyroidism and multiple other medical issues. States his dyspnea presentation similar to prior pneumothoraxes.Reports decreased O2 saturation at home.Denies fever or chills, cough, hemoptysis. Denies chest pain, palpitations. Denies nausea vomiting diarrhea or abdominal pain. Denies lightheadedness dizziness or focal deficits. Denies headache. O2 sat on admission, 89% on room air, tachypneic, tachycardic, afebrile, normal WBC. EKG sinus rhythm. Chest x-ray reporting a large left-sided pneumothorax. Thoravent placed regarding spontaneous pneumothorax with mild tension component. Chest x- ray post Thoravent reported decreased left-sided pneumothorax with small resi dual pneumothorax at the left lung base. Thoravent replaced ;post chest x-ray reporting interval improvement. Cardiothoracic surgery consulted. Review of Systems ROS Statement: Those systems with pertinent positive or pertinent negative responses have been documented in the HPI. ROS Other: All systems not noted in ROS Statement are negative. Past Medical History Past Medical History: Coronary Artery Disease (CAD), Hyperlipidemia, Hypertension, Osteoarthritis (OA), Thyroid Disorder Additional Past Medical History / Comment(s): 1-5-16 dmitted with c/o sob dx pn eumothorax. other past medicl hx includes: occ tinnitus, palpitations, fx rt hand(casted) skin ca., hypothyroid History of Any Multi-Drug Resistant Organisms: None Reported Past Surgical History: Back Surgery, Heart Catheterization With Stent Additional Past Surgical History / Comment(s): hemorroidectomy, back sx d/t bulgin disc, rt hand sx to repair severed tendon, colonoscopy x2, skin ca on nose removed. Past Anesthesia/Blood Transfusion Reactions: No Reported Reaction Date of Last Stent Placement:: unk Past Psychological History: No Psychological Hx Reported Smoking Status: Former smoker Past Alcohol Use History: None Reported Past Drug Use History: None Reported - Past Family History Mother Family Medical History: Dementia Father Family Medical History: Cancer, Liver Disease Additional Family Medical History / Comment(s): liver cancer Medications and Allergies Home Medications Medication Instructions Recorded Confirmed Type Atorvastatin [Lipitor] 80 mg PO HS 02/19/15 07/27/18 History Sertraline [Zoloft] 100 mg PO DAILY 02/19/15 07/27/18 History Levothyroxine Sodium [Synthroid] 150 mcg PO DAILY 07/27/18 07/27/18 History Metoprolol Tartrate [Lopressor] 25 mg PO BID 07/27/18 07/27/18 History Allergies Allergy/AdvReac Type Severity Reaction Status Date / Time venom-honey bee Allergy Swelling Verified 07/27/18 00:16 [bee venom (honey bee)] Physical Exam Vitals: Vital Signs Temp Pulse Pulse Resp BP BP Pulse Ox 07/27/18 04:37 18 07/27/18 04:25 97.4 F L 82 16 141/82 100 07/27/18 04:00 82 108/63 99 07/27/18 03:50 81 13 108/63 99 07/27/18 03:40 87 14 99/73 98 07/27/18 03:30 86 13 108/76 97 07/27/18 03:20 89 15 108/76 98 07/27/18 03:10 86 14 116/82 96 07/27/18 03:00 88 14 132/90 97 07/27/18 02:50 87 15 132/90 98 07/27/18 02:40 90 13 154/135 97 07/27/18 02:30 92 24 183/114 97 07/27/18 02:20 98 17 183/114 94 L 07/27/18 02:10 95 16 153/106 94 L 07/27/18 02:00 91 16 180/110 94 L 07/27/18 01:50 94 19 180/110 94 L 07/27/18 01:40 91 18 142/102 96 07/27/18 01:30 104 H 17 151/97 95 07/27/18 01:20 101 H 19 151/97 94 L 07/27/18 01:10 92 17 152/100 95 07/27/18 01:00 96 17 153/99 94 L 07/27/18 00:51 101 H 16 93 L 07/26/18 23:55 98.1 F 109 H 24 208/133 89 L Intake and Output 07/26/18 07/27/18 07/27/18 22:59 06:59 14:59 Other: Weight 113.398 kg PHYSICAL EXAM: VITAL SIGNS: As above GENERAL: Sitting up at side of bed, no acute distress HEENT: Conjunctivae normal. eyes normal. NECK: No JVD. No thyroid enlargement. No LNs CARDIOVASCULAR: S1, S2 regular.. No murmur RESPIRATION: Breath sounds diminished in the bases, more so on the left. No rhonchi or crackles. No wheezing. No bronchial breathing. Left-sided thoravent present, ABDOMEN: Soft, nontender . No guarding. no masses palpable. Bowel sounds heard. LEGS: No edema. no swelling PSYCHIATRY: Alert and oriented X3, mood and affect normal. NERVOUS SYSTEM: Cranial N 2-12 grossly normal. Moves all 4 limbs. Diffuse weakness No focal deficits. Strength and sensation grossly intact.. Skin: no lesions, no rash Joints: No active swelling. No inflammation. Lymphatic system. No LN neck axilla or groin. Results CBC & Chem 7: 07/28/18 04:42 07/28/18 04:42 Labs: Abnormal Lab Results - Last 24 Hours (Table) 07/27/18 Range/Units 00:05 Glucose 123 H (74-99) mg/dL Calcium 10.6 H (8.4-10.2) mg/dL Thrombosis Risk Factor Assmnt - Choose All That Apply Any of the Below Risk Factors Present?: Yes Each Factor Represents 1 point: Obesity (BMI >25), Serious lung disease incl. pneumonia (< 1month) Each Risk Factor Represents 2 Points: Age 61-74 years Thrombosis Risk Factor Assessment Total Risk Factor Score: 4 Thrombosis Risk Factor Assessment Level: Moderate Risk Assessment and Plan Assessment: -Spontaneous pneumothorax,Left sided, status post placement of Thoravent, in a patient with history of spontaneous Pneumothorax, bullous emphysema on the right side,VATS, Blebectomy, mechanical pleurodesis -History of nicotine dependence -CAD with stent -Hypertension -Hyperlipidemia -Hypothyroidism Plan: Continue on current medication regime ,monitoring and symptomatic treatment. Aggressive pulmonary toileting with incentive spirometer ordered. Maintain IV antibiotics of cefazolin. Increase ambulation as tolerated. Cardiothoracic surgery consulted with recommendations pending. Home meds have been reviewed and resumed. GI and DVT prophylaxis in place. Further recommendations to follow. The impression and plan of care has been dictated as directed. : I performed a history and examination of this patient, discussed the same with the dictator. I agree with the dictator's note ,documented as a scribe. Any additional findings or plans will be noted. Time taken: 35 minutes
[2018-07-28] MEDS: SERTRALINE 100 MG TAB PO SCH (10:04)
--- NOTE | 2018-07-28 10:14 | P.PN ---
Subjective Progress Note Date: 07/28/18 Principal diagnosis: Spontaneous left pneumothorax This is a 67-year-old gentleman presented to the ER with complaints of worsening dyspnea since yesterday morning, in a patient with history of prior nicotine dependence, COPD, spontaneous pneumothorax, with bullous emphysema, blebectomy, pleurodesis, VATS, CAD with stent, hyperlipidemia, hypertension, osteoarthritis, hypothyroidism and multiple other medical issues. States his dyspnea presentation similar to prior pneumothoraxes.Reports decreased O2 saturation at home.Denies fever or chills, cough, hemoptysis. Denies chest pain, palpitations. Denies nausea vomiting diarrhea or abdominal pain. Denies lightheadedness dizziness or focal deficits. Denies headache. O2 sat on admission, 89% on room air, tachypneic, tachycardic, afebrile, normal WBC. EKG sinus rhythm. Chest x-ray reporting a large left-sided pneumothorax. Thoravent placed regarding spontaneous pneumothorax with mild tension component. Chest x- ray post Thoravent reported decreased left-sided pneumothorax with small residual pneumothorax at the left lung base. Thoravent replaced ;post chest x- ray reporting interval improvement. Cardiothoracic surgery consulted. 07/28/[address] reported extensive ileus emphysematous change, correlate to exclude tension pneumothorax. Last night patient developed respiratory distress, hypoxic. Patient was transferred to the ICU. Chest x-ray performed reporting worsening left-sided pneumothorax. Left Thoracostomy tube placed by cardiothoracic surgery with interval improvement per chest x-ray. Pain c ontrolled. Good diet intake this morning with no nausea vomiting or diarrhea. Telemetry sinus rhythm. Maintaining O2 sats of 96% on 6 L nasal cannula. Incentive spirometer up to 2500. Denies chest pain, palpitations. Afebrile, normal WBC. Objective - Vital Signs Vital signs: Vital Signs Temp 98.0 F 07/28/18 08:00 Pulse 65 07/28/18 09:00 Resp 8 L 07/28/18 09:00 BP 119/67 07/28/18 09:00 Pulse Ox 93 L 07/28/18 09:00 Intake & Output 07/27/18 07/28/18 07/28/18 18:59 06:59 18:59 Intake Total 230 110 Output Total 1000 542 355 Balance -1000 -312 -509 Weight 116.7 kg Intake: IV 230 60 Sodium Chloride 0.9% 1, 180 60 000 ml @ 150 mls/hr IV . Q6H40M COUNT INCLUDES THE [facility] Rx#:[id number] ceFAZolin 1,000 mg In 50 Sodium Chloride 0.9% 50 ml @ 100 mls/hr IVPB Q8HR [facility] Rx#:[id number] Intake, IV Titration 50 Amount ceFAZolin 1,000 mg In 50 Sodium Chloride 0.9% 50 ml @ 100 mls/hr IVPB Q8HR [facility] Rx#:[id number] Output: Chest Tube Drainage 92 5 Chest Tube Left 80 5 Thora-Vent Left Upper 12 Anterior Chest Urine 1000 450 350 Other: Voiding Method Urinal Urinal Urinal - Exam VITAL SIGNS: As above GENERAL: Sitting up in chair, no acute distress HEENT: Conjunctivae normal. eyes normal. NECK: No JVD. Trachea midline, no deviation.No thyroid enlargement. No LNs CARDIOVASCULAR: S1, S2 regular.. No murmur RESPIRATION: Nonlabored, Left base diminished ,No rhonchi or crackles. No wheezing. Left-sided thoravent present, left-sided pleural chest tube to LIS with serous drg. ABDOMEN: Soft, nontender . No guarding. no masses palpable. Bowel sounds heard. LEGS: No edema. no swelling PSYCHIATRY: Alert and oriented X3, mood and affect normal. NERVOUS SYSTEM: Cranial N 2-12 grossly normal. Moves all 4 limbs. No focal de ficits. Strength and sensation grossly intact.. Skin: no lesions, no rash Lymphatic system. No LN neck axilla or groin. - Labs CBC & Chem 7: 07/28/18 04:42 07/28/18 04:42 Labs: Abnormal Lab Results - Last 24 Hours (Table) 07/27/18 07/28/18 Range/Units 20:06 04:42 RBC 3.86 L (4.30-5.90) m/uL Hgb 11.6 L (13.0-17.5) gm/dL Hct 35.4 L (39.0-53.0) % POC Glucose (mg/dL) 168 H (75-99) mg/dL Assessment and Plan Assessment: -Spontaneous pneumothorax,Left sided, status post placement of Thoravent, in a patient with history of spontaneous Pneumothorax, bullous emphysema on the right side,VATS, Blebectomy, mechanical pleurodesis -Acute hypoxic respiratory failure secondary to Worsening left-sided pneumothorax, status post left thoracostomy tube placement. -History of nicotine dependence -CAD with stent -Hypertension -Hyperlipidemia -Hypothyroidism Plan: Continue on current medication regime ,monitoring and symptomatic treatment. Chest tube to LIS with surgical options being discussed for next week by cardiothoracic surgery. Pain management. Maintain aggressive pulmonary toileting with incentive spirometer reinforced. Maintain IV antibiotics.Increase ambulation as tolerated. Transfer to [facility] with telemetry .Further recommendations to follow. The impression and plan of care has been dictated as directed. : I performed a history and examination of this patient, discussed the same with the dictator. I agree with the dictator's note ,documented as a scribe. Any additional findings or plans will be noted.
[2018-07-28] MEDS ORDERED: PANTOPRAZOLE 40 MG/10 ML VIAL IVP SCH (10:15)
--- NOTE | 2018-07-28 14:18 | P.CNPUL ---
History of Present Illness Consult date: 07/28/18 Reason for consult: pneumothorax History of present illness: [id number] male patient came into the emergency department because of progressive dyspnea. The patient is known to have a right-sided pneumothorax related to previous history of bullous emphysema and the patient has undergone right-sided residual-assisted thoracoscopy and blebectomy and mechanical pleurodesis. This was done in by Dr. Blair Alberto. The patient was foun d to have a large left-sided pneumothorax. A fluoroscopy vent was inserted and the extension was incomplete. Later on during the day, the patient had a chest tube insertion and currently the fluoroscopy vent is removed. There is ongoing air leak and there is good expansion of the left lung. He is feeling better. No chest pain or shortness of breath for now. No pleurisy or hemoptysis. No fever. No chills. No tachycardia. No cardiac arrhythmias. He is known to have coronary artery disease with previous coronary intervention and stenting of the LAD back 6 years ago in addition to that he has history of hypertension and hyperlipidemia. The Computed Tomography scan of the chest was done and showed bullous changes involving the left lung. Review of Systems Constitutional: Reports as per HPI Eyes: denies blurred vision, denies bulging eye, denies decreased vision Ears: deny: decreased hearing, ear discharge, earache, tinnitus Ears, nose, mouth and throat: Denies headache, Denies sore throat Breasts: absent: as per HPI, gynecomastia Cardiovascular: Reports decreased exercise tolerance, Reports dyspnea on exertion Respiratory: Reports dyspnea Gastrointestinal: Reports as per HPI Genitourinary: Reports as per HPI Musculoskeletal: Reports as per HPI Musculoskeletal: absent: ankle pain, ankle stiffness, ankle swelling Integumentary: Reports as per HPI Neurological: Reports as per HPI Psychiatric: Reports as per HPI Endocrine: Reports as per HPI Hematologic/Lymphatic: Reports as per HPI Allergic/Immunologic: Reports as per HPI Past Medical History Past Medical History: Coronary Artery Disease (CAD), Hyperlipidemia, Hypertension, Osteoarthritis (OA), Thyroid Disorder Additional Past Medical History / Comment(s): 1--16 dmitted with c/o sob dx pneumothorax. other past medicl hx includes: occ tinnitus, palpitations, fx rt hand(casted) skin ca., hypothyroid History of Any Multi-Drug Resistant Organisms: None Reported Past Surgical History: Back Surgery, Heart Catheterization With Stent Additional Past Surgical History / Comment(s): hemorroidectomy, back sx d/t bulgin disc, rt hand sx to repair severed tendon, colonoscopy x2, skin ca on nose removed. Past Anesthesia/Blood Transfusion Reactions: No Reported Reaction Date of Last Stent Placement:: unk Past Psychological History: No Psychological Hx Reported Smoking Status: Former smoker Past Alcohol Use History: None Reported Past Drug Use History: None Reported - Past Family History Mother Family Medical History: Dementia Father Family Medical History: Cancer, Liver Disease Additional Family Medical History / Comment(s): liver cancer Medications and Allergies Home Medications Medication Instructions Recorded Confirmed Type Atorvastatin [Lipitor] 80 mg PO HS 02/19/15 07/27/18 History Sertraline [Zoloft] 100 mg PO DAILY 02/19/15 07/27/18 History Levothyroxine Sodium [Synthroid] 150 mcg PO DAILY 07/27/18 07/27/18 History Metoprolol Tartrate [Lopressor] 25 mg PO BID 07/27/18 07/27/18 History Allergies Allergy/AdvReac Type Severity Reaction Status Date / Time venom-honey bee Allergy Swelling Verified 07/27/18 00:16 [bee venom (honey bee)] Physical Exam Vitals: Vital Signs Temp Pulse Resp BP Pulse Ox 07/28/18 13:00 74 12 132/84 96 07/28/18 12:00 73 13 141/62 99 07/28/18 11:00 58 L 9 L 106/66 96 07/28/18 10:00 64 10 L 101/87 97 07/28/18 09:00 65 8 L 119/67 93 L 07/28/18 08:00 98.0 F 87 9 L 119/67 96 07/28/18 07:00 66 16 126/80 95 07/28/18 06:00 93 18 114/71 95 07/28/18 05:00 70 16 98/74 98 07/28/18 04:00 97.6 F 66 16 94/72 95 07/28/18 03:00 62 14 92/71 97 07/28/18 02:00 60 16 104/67 97 07/28/18 01:00 64 14 103/72 96 07/28/18 00:14 96 07/28/18 00:00 97.8 F 71 14 103/91 97 07/27/18 23:00 71 16 103/67 97 07/27/18 22:40 70 14 103/76 97 07/27/18 22:20 73 15 125/69 98 07/27/18 22:00 76 16 113/84 97 07/27/18 21:50 80 15 113/84 96 07/27/18 21:40 80 14 115/86 96 07/27/18 21:30 92 18 119/68 95 07/27/18 21:20 82 15 119/68 96 07/27/18 21:10 86 17 129/71 96 07/27/18 21:00 90 16 130/90 99 07/27/18 20:50 89 16 130/90 95 07/27/18 20:40 95 23 135/93 97 07/27/18 20:30 86 23 136/95 95 07/27/18 20:20 97.7 F 88 15 136/95 94 L 07/27/18 18:36 104 H 07/27/18 18:27 88 Intake and Output 07/27/18 07/28/18 07/28/18 22:59 06:59 14:59 Intake Total 40 190 670 Output Total 12 530 395 Balance 28 -340 275 Intake: IV 40 190 120 Sodium Chloride 0.9% 1, 40 140 60 000 ml @ 150 mls/hr IV . Q6H40M SANDRA Rx#:[id number] ceFAZolin 1,000 mg In 50 Sodium Chloride 0.9% 50 ml @ 100 mls/hr IVPB Q8HR SANDRA Rx#:[id number] ns 60 Intake, IV Titration 50 Amount ceFAZolin 1,000 mg In 50 Sodium Chloride 0.9% 50 ml @ 100 mls/hr IVPB Q8HR SANDRA Rx#:[id number] Oral 500 Output: Chest Tube Drainage 12 80 45 Chest Tube Left 80 45 Thora-Vent Left Upper 12 Anterior Chest Urine 450 350 Other: Voiding Method Urinal Urinal Weight 116.7 kg The patient appeared well nourished and normally developed. Vital signs as documented. Head exam is unremarkable. No scleral icterus or corneal arcus not ed. Neck is without jugular venous distension, thyromegaly, or carotid bruits. Carotid upstrokes are brisk bilaterally. Lungs reveal some subcutaneous emphysema over the left anterior chest area. The patient has a left-sided chest tube with ongoing air leak.. Cardiac exam reveals the PMI to be normally sized and situated. Rhythm is regular. First and second heart sounds normal. No murmurs, rubs or gallops. Abdominal exam reveals normal bowel sounds, no masses, no organomegaly and no aortic enlargement. Extremities are nonedematous and both femoral and pedal pulses are normal.Examination of the skin revealed no evidence of significant rashes, suspicious appearing nevi or other concerning lesions. Neurologically the patient is awake and alert and there is a focal neurological deficits. Results - Laboratory Findings CBC and BMP: 07/28/18 04:42 07/28/18 04:42 PT/INR, D-dimer PT 10.3 sec (9.0-12.0) 07/27/18 00:05 INR 1.0 (<1.2) 07/27/18 00:05 D-Dimer 0.44 mg/L FEU (<0.60) 07/27/18 00:05 Abnormal lab findings: Abnormal Labs 07/27/18 07/27/18 07/28/18 00:05 20:06 04:42 RBC 3.86 L Hgb 11.6 L Hct 35.4 L Glucose 123 H POC Glucose (mg/dL) 168 H Calcium 10.6 H - Diagnostic Findings Chest x-ray: image reviewed Assessment and Plan Plan: 1 left-sided pneumothorax, failed thoravent, currently the chest tube in place with adequate expansion of the left lung. There is still persistent air leak. 2 acute shortness of breath, recovered 3 post emphysema 4 previous history of right-sided pneumothorax requiring VATS and wedge resection and chemical pleurodesis 5 coronary artery disease 6 hypertension 7 hyperlipidemia Plan The patient is doing well. The patient is hemodynamically stable. Keep the chest tube to suction. Daily chest x-ray. Incentive spirometer. Possible surgical intervention by cardiothoracic surgery regarding bullous emphysema and secondary pneumothorax. We'll continue to follow
[2018-07-28] MEDS: ATORVASTATIN 80 MG TAB PO SCH (22:00)
[2018-07-29] MEDS: KETOROLAC 30 MG/ML 1 ML VIAL IVP SCH ×5 (00:54→23:28)
[2018-07-29] MEDS: LEVOTHYROXINE 75 MCG TAB PO SCH (05:46)
[2018-07-29] MEDS: BENZOCAINE/MENTHOL LOZENG 1 EACH LOZENGE MUCOUS MEM PRN (07:39)
[2018-07-29] MEDS: SERTRALINE 100 MG TAB PO SCH (07:39)
[2018-07-29] MEDS: PANTOPRAZOLE 40 MG TABLET PO SCH (07:39)
[2018-07-29] MEDS: METOPROLOL TARTRATE 25 MG TAB PO SCH ×2 (07:39→20:24)
--- NOTE | 2018-07-29 08:16 | XR ---
EXAMINATION TYPE: XR chest 1V portable DATE OF EXAM: 07/29/2018 Comparison: 07/28/2018 Clinical History: 67-year-old male follow-up pneumothorax Findings: Heart normal size. Mild interstitial prominence possibly accentuated secondary to the diffuse diffuse subcutaneous emphysema which is markedly increased in the interval. Tiny left apical pneumothorax me asuring 8 mm persists. The basilar component to the pneumothorax has improved. There is linear lucenc y along the left heart margin that could represent a medial component to the pneumothorax or trace pn eumomediastinum. Left-sided chest tube remains in place. Impression: 1. Marked diffuse increase in subcutaneous emphysema with left chest tube in place. 2. Stable trace left apical pneumothorax with improvement in the basilar component of the pneumothora x. There is a linear lucency also seen medially that could represent a small medial component to the pneumothorax versus trace pneumomediastinum.
[2018-07-29 08:42] LABS: Anisocytosis Slight; Basophils % (A) 0 %; Eosinophils # (A) 0.1 k/uL (0-0.7); Eosinophils % (A) 2 %; HGB 12.4 gm/dL (13.0-17.5); Lymphocytes # (A) 0.8 k/uL (1.0-4.8); Lymphocytes % (A) 14 %; MCH 29.5 pg (25.0-35.0); MCHC 32.7 g/dL (31.0-37.0); MCV 90.1 fL (80.0-100.0); Mean Platelet Volume 7.5; Monocytes # (A) 0.2 k/uL (0-1.0); Monocytes % (A) 3 %; Neutrophils # (A) 4.9 k/uL (1.3-7.7); Neutrophils % (A) 81 %; Platelet Count 158 k/uL (150-450); RBC 4.22 m/uL (4.30-5.90); RDW 16.2 % (11.5-15.5); WBC 6.1 k/uL (3.8-10.6)
[2018-07-29 08:54] LABS: Potassium 4.3 mmol/L (3.5-5.1)
--- NOTE | 2018-07-29 12:01 | P.PN ---
Subjective Progress Note Date: 07/29/18 Principal diagnosis: Left sided spontaneous pneumothorax. 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 POD #3 placement of Thora-vent by emergency room physicians. POD #2 placement of left thoracostomy tube. Patient is currently sitting up to the bedside edge. He is in no acute distress. Currently he denies any complaints of pain or shortness of breath although he is complaining of his voice sounding strange. He is also complai orly of swelling to his neck. His left pleural chest tube remains in place to low continuous wall suction -20 cm H2O. Continuous air leak is present. Achieving 2000 mL on his incentive spirometry. Oxygen saturation are 97% on 5 L nasal cannula. He remains to have significant subcutaneous emphysema to his neck, upper back, bilateral upper extremities and to his upper chest. Objective - Vital Signs Vital signs: Vital Signs Temp 99.2 F 07/29/18 07:00 Pulse 76 07/29/18 07:00 Resp 16 07/29/18 07:00 BP 147/87 07/29/18 07:00 Pulse Ox 97 07/29/18 07:00 Intake & Output 07/28/18 07/29/18 07/29/18 18:59 06:59 18:59 Intake Total 670 100 Output Total 395 75 Balance 275 25 Intake: IV 120 Sodium Chloride 0.9% 1, 60 000 ml @ 150 mls/hr IV . Q6H40M [facility]DRA Rx#:[id number] ns 60 Intake, IV Titration 50 Amount ceFAZolin 1,000 mg In 50 Sodium Chloride 0.9% 50 ml @ 100 mls/hr IVPB Q8HR SANDRA Rx#:[id number] Oral 500 100 Output: Chest Tube Drainage 45 75 Chest Tube Left 45 75 Urine 350 Other: Voiding Method Urinal Urinal # Voids 1 - Constitutional General appearance: Present: cooperative, no acute distress, obese - Respiratory Details: Lungs sounds are essentially clear throughout, diminished to his left lower lobe. Respirations are symmetrical and nonlabored. Oxygen saturation are 95% on 5 L nasal cannula. Achieving 4325-6054 mL on his incentive spirometry. Left pleural chest tube remains in place to low continuous wall suction -20 cm H2O. Continuous air leak is present. Draining thin serosanguineous drainage, 100 mL output in the last 24 hours. - Cardiovascular Details: Regular rhythm and rate. S1 and S2 present, negative for S3, gallop or murmur. No edema present. Knee-high sequential compression devices in place to his bilateral lower extremities. - Gastrointestinal Gastrointestinal Comment(s): Abdomen is soft, nontender and nondistended. Active bowel sounds all 4 abdomina l quadrants. No guarding or rigidity. No organomegaly. Tolerating oral intake. - Genitourinary Genitourinary Comment(s): Voiding clear yellow urine. - Integumentary Integumentary Comment(s): Skin is warm and dry. No clubbing or cyanosis is present. Left pleural chest tube remains in place with dressing clean, dry and intact. Left upper chest Thoravent insertion site dressing clean, dry and intact. - Neurologic Neurologic: Present: CNII-XII intact - Musculoskeletal Musculoskeletal: Present: gait normal, strength equal bilaterally - Psychiatric Psychiatric: Present: A&O x's 3, appropriate affect, intact judgment & insight - Allied health notes Allied health notes reviewed: nursing - Labs CBC & Chem 7: 07/29/18 08:17 07/29/18 08:17 Labs: Abnormal Lab Results - Last 24 Hours (Table) 07/29/18 07/29/18 Range/Units 08:17 08:17 RBC 4.22 L (4.30-5.90) m/uL Hgb 12.4 L (13.0-17.5) gm/dL Hct 38.0 L (39.0-53.0) % RDW 16.2 H (11.5-15.5) % Lymphocytes # 0.8 L (1.0-4.8) k/uL Carbon Dioxide 33 H (22-30) mmol/L Glucose 126 H (74-99) mg/dL - Imaging and Cardiology Chest x-ray: report reviewed, image reviewed Assessment and Plan Assessment: 1. Left-sided spontaneous pneumothorax, status post thoravent placement by the emergency room physicians 2. Acute hypoxic respiratory distress, increased pneumothorax, status post left thoracostomy tube placement 3. History of spontaneous pneumothorax 2 with bullous emphysema on the right side, status post VATS with blebectomy and mechanical pleurodesis on 10/30/2015 4. History of coronary artery disease with stent placement 6 years ago 5. Hypertension 6. Hyperlipidemia 7. Hypothyroidism 8. Previous tobacco dependence 9. Osteoarthritis Plan: 1. Continue left thoracostomy tube to low continuous wall suction -20 cm H2O. Monitor for air leak resolution. 2. Encourage continued smoking cessation. 3. Wean O2 as tolerated. Encourage incentive spirometry use 10 times every hour while awake. 4. Pain control with current medication regimen. 5. GI and DVT prophylaxis. 6. Will monitor daily chest x-rays. 7. Increase activity, ambulate as tolerated around the room. Do not disconnect his chest tube from wall suction. 8. Patient likely will need left-sided VATS with bleb resection and mechanical pleurodesis, timing to be determined. 9. Medical management of other comorbidities per primary care service. 10. Further recommendations follow based on patient's clinical course. Time with Patient: Greater than 30
--- NOTE | 2018-07-29 12:51 | P.PN ---
Subjective Progress Note Date: 07/29/18 Principal diagnosis: The patient is seen today 07/29/2018 in follow-up on the regular medical floor. He is currently awake and alert in no acute distress. He did develop signific ant subcutaneous emphysema. Chest tube remains in place with continuous air leak and to wall suction. He is maintaining O2 saturations in the upper 90s on 5 L high flow nasal cannula. Temperature 99.2. Hemodynamically stable. White count 6.1. Hemoglobin 12.4. Creatinine 1.02. Continued on cefazolin. Working well with the incentive spirometer. Objective - Vital Signs Vital signs: Vital Signs Temp 99.2 F 07/29/18 07:00 Pulse 76 07/29/18 07:00 Resp 16 07/29/18 07:00 BP 147/87 07/29/18 07:00 Pulse Ox 97 07/29/18 07:00 Intake & Output 07/28/18 07/29/18 07/29/18 18:59 06:59 18:59 Intake Total 670 100 Output Total 395 75 Balance 275 25 Intake: IV 120 Sodium Chloride 0.9% 1, 60 000 ml @ 150 mls/hr IV . Q6H40M [facility]DRA Rx#:[id number] ns 60 Intake, IV Titration 50 Amount ceFAZolin 1,000 mg In 50 Sodium Chloride 0.9% 50 ml @ 100 mls/hr IVPB Q8HR [facility]DR[facility] Rx#:[id number] Oral 500 100 Output: Chest Tube Drainage 45 75 Chest Tube Left 45 75 Urine 350 Other: Voiding Method Urinal Urinal # Voids 1 - Exam GENERAL EXAM: Alert, active, comfortable in no apparent distress. On 5 L high flow nasal cannula. Maintain O2 saturations in the high 90s. HEAD: Evidence of subcutaneous emphysema. Normocephalic. EYES: Normal reaction of pupils, equal size. NOSE: Clear with pink turbinates. THROAT: Hoarseness. No erythema or exudates. NECK: Some continuous emphysema. No masses, no JVD. CHEST: The cutaneous emphysema. Left chest tube dressing dry and intact. LUNGS: Equal air entry with few scattered rhonchi, crackles in the left post erior base CVS: S1 and S2 normal with no audible murmur, regular rhythm. ABDOMEN: No hepatosplenomegaly, normal bowel sounds, no guarding or rigidity. SPINE: No scoliosis or deformity SKIN: No rashes CENTRAL NERVOUS SYSTEM: No focal deficits, tone is normal in all 4 extremities. EXTREMITIES: There is no peripheral edema. No clubbing, no cyanosis. Peripheral pulses are intact. - Labs CBC & Chem 7: 07/29/18 08:17 07/29/18 08:17 Labs: Abnormal Lab Results - Last 24 Hours (Table) 07/29/18 07/29/18 Range/Units 08:17 08:17 RBC 4.22 L (4.30-5.90) m/uL Hgb 12.4 L (13.0-17.5) gm/dL Hct 38.0 L (39.0-53.0) % RDW 16.2 H (11.5-15.5) % Lymphocytes # 0.8 L (1.0-4.8) k/uL Carbon Dioxide 33 H (22-30) mmol/L Glucose 126 H (74-99) mg/dL Assessment and Plan Assessment: Impression: 1 left-sided pneumothorax, failed thoravent, currently the chest tube in place with adequate expansion of the left lung. There is still persistent air leak. 2 acute shortness of breath, recovered 3 post emphysema 4 previous history of right-sided pneumothorax requiring VATS and wedge resection and chemical pleurodesis 5 coronary artery disease 6 hypertension 7 hyperlipidemia Plan: The patient was seen and evaluated by Dr. Gonzalez. Chest x-ray reviewed. The patient does have subcutaneous emphysema noted. Positive air leak. Chest tube remains in place, dressing dry and intact, to continuous wall suction. We will see the patient on as-needed basis and/or if he requires surgical intervention. I, the cosigning physician, performed a history & physical examination of the patient. Lungs sounds with crackles in left posterior base. Maintaining good O2 saturations in the 90s on 5 liters high flow nasal cannula. I discussed the assessment and plan of care with my nurse practitioner, Deepali Castro. I attest to the above note as dictated by her.
--- NOTE | 2018-07-29 16:49 | P.PN ---
Subjective Progress Note Date: 07/29/18 This is a 67-year-old gentleman presented to the ER with complaints of worsening dyspnea since yesterday morning, in a patient with history of prior nicotine dependence, COPD, spontaneous pneumothorax, with bullous emphysema, blebectomy, pleurodesis, VATS, CAD with stent, hyperlipidemia, hypertension, osteoarthritis, hypothyroidism and multiple other medical issues. States his dyspnea presentation similar to prior pneumothoraxes.Reports decreased O2 saturation at home.Denies fever or chills, cough, hemoptysis. Denies chest pain, palpitations. Denies nausea vomiting diarrhea or abdominal pain. Denies lightheadedness dizziness or focal deficits. Denies headache. O2 sat on admission, 89% on room air, tachypneic, tachycardic, afebrile, normal WBC. EKG sinus rhythm. Chest x-ray reporting a large left-sided pneumothorax. Thoravent placed regarding spontaneous pneumothorax with mild tension component. Chest x- ray post Thoravent reported decreased left-sided pneumothorax with small residual pneumothorax at the left lung base. Thoravent replaced ;post chest x- ray reporting interval improvement. Cardiothoracic surgery consulted. 07/28/[address] reported extensive ileus emphysematous change, correlate to exclude tension pneumothorax. Last night patient developed respiratory distres s, hypoxic. Patient was transferred to the ICU. Chest x-ray performed reporting worsening left-sided pneumothorax. Left Thoracostomy tube placed by cardiothoracic surgery with interval improvement per chest x-ray. Pain controlled. Good diet intake this morning with no nausea vomiting or diarrhea. Telemetry sinus rhythm. Maintaining O2 sats of 96% on 6 L nasal cannula. Incentive spirometer up to 2500. Denies chest pain, palpitations. Afebrile, normal WBC. 07/29/2018 Developed significant subcutaneous emphysema in his chest, upper back, neck and bilateral upper extremities accompanied by voice change, swollen neck; trachea midline. CXR noted reporting sub emphysema, stable trace left apical pneumothorax, with medial linear lucency. Left pleural chest tube to LIS with continuous air leak. Denies shortness of breath, chest pain or palpitations. Maintaining O2 sats in the high 90s on 5 L nasal cannula, 2000 on IS. T-max 99.2, normal WBC. Objective - Vital Signs Vital signs: Vital Signs Temp 99.2 F 07/29/18 07:00 Pulse 76 07/29/18 07:00 Resp 16 07/29/18 07:00 BP 147/87 07/29/18 07:00 Pulse Ox 97 07/29/18 07:00 Intake & Output 07/28/18 07/29/18 07/29/18 18:59 06:59 18:59 Intake Total 670 100 Output Total 395 75 Balance 275 25 Intake: IV 120 Sodium Chloride 0.9% 1, 60 000 ml @ 150 mls/hr IV . Q6H40M [facility]DRA Rx#:[id number] ns 60 Intake, IV Titration 50 Amount ceFAZolin 1,000 mg In 50 Sodium Chloride 0.9% 50 ml @ 100 mls/hr IVPB Q8HR [facility]DRA Rx#:[id number] Oral 500 100 Output: Chest Tube Drainage 45 75 Chest Tube Left 45 75 Urine 350 Other: Voiding Method Urinal Urinal # Voids 1 - Exam VITAL SIGNS: As above GENERAL: Sitting up bedside, no acute distress.voive change. HEENT: Conjunctivae normal. eyes normal. subcutaneous emphysema in his chest, upper back, neck NECK: No JVD. Swollen neck. Trachea midline, no deviation.No thyroid enlargement. No LNs CARDIOVASCULAR: S1, S2 regular.. No murmur RESPIRATION: Nonlabored, Left base diminished ,No rhonchi or crackles. No wheezing. left-sided pleural chest tube to LIS with serous drg./positive airleak. ABDOMEN: Soft, nontender . No guarding. no masses palpable. Bowel sounds heard. LEGS: No edema. no swelling PSYCHIATRY: Alert and oriented X3, mood and affect normal. NERVOUS SYSTEM: Cranial N 2-12 grossly normal. Moves all 4 limbs. No focal deficits. Strength and sensation grossly intact.. Skin: no lesions, no rash .subcutaneous emphysema in his chest, upper back, neck and bilateral upper extremities Lymphatic system. No LN neck axilla or groin. - Labs CBC & Chem 7: 07/29/18 08:17 07/29/18 08:17 Labs: Abnormal Lab Results - Last 24 Hours (Table) 07/29/18 07/29/18 Range/Units 08:17 08:17 RBC 4.22 L (4.30-5.90) m/uL Hgb 12.4 L (13.0-17.5) gm/dL Hct 38.0 L (39.0-53.0) % RDW 16.2 H (11.5-15.5) % Lymphocytes # 0.8 L (1.0-4.8) k/uL Carbon Dioxide 33 H (22-30) mmol/L Glucose 126 H (74-99) mg/dL Assessment and Plan Assessment: -Spontaneous pneumothorax,Left sided, status post placement of Thoravent, in a patient with history of spontaneous Pneumothorax, bullous emphysema on the right side,VATS, Blebectomy, mechanical pleurodesis -Acute hypoxic respiratory failure secondary to Worsening left-sided pneumothorax, status post left thoracostomy tube placement. -History of nicotine dependence -CAD with stent -Hypertension -Hyperlipidemia -Hypothyroidism Plan: Continue on current medication regime ,monitoring and symptomatic treatment. Cadriothoracic Surgery notified. Chest tube to LIS with surgical options as per cardiothoracic surgery. Maintain aggressive pulmonary toileting with incentive spirometer reinforced. Maintain IV antibiotics.Increase ambulation as tolerated. The impression and plan of care has been dictated as directed. : I performed a history and examination of this patient, discussed the same with the dictator. I agree with the dictator's note ,documented as a scribe. Any additional findings or plans will be noted.
[2018-07-29] MEDS: ATORVASTATIN 80 MG TAB PO SCH (20:24)
[2018-07-30] MEDS: KETOROLAC 30 MG/ML 1 ML VIAL IVP SCH ×4 (05:40→23:19)
[2018-07-30] MEDS: LEVOTHYROXINE 75 MCG TAB PO SCH (05:40)
--- NOTE | 2018-07-30 07:12 | XR ---
EXAMINATION TYPE: XR chest 1V portable DATE OF EXAM: 07/30/2018 HISTORY: pneumothorax. REFERENCE: Previous study dated 07/29/2018. FINDINGS: There is a tiny pneumothorax on the left. This approaches 5% by volume. There is improving subcutaneous emphysema on the left. A left pleural drain remains in place. There is right basilar airspace disease. I suspect a small right effusion. The heart is not enlarged. IMPRESSION: 1. CONTINUING, TINY LEFT APICAL PNEUMOTHORAX. 2. IMPROVING SUBCUTANEOUS EMPHYSEMA. 3. RIGHT BASILAR AIRSPACE DISEASE, UNCHANGED FROM PREVIOUS. 4. SMALL RIGHT EFFUSION.
[2018-07-30 08:10] LABS: Basophils % (A) 0 %; Eosinophils # (A) 0.1 k/uL (0-0.7); Eosinophils % (A) 2 %; HCT 35.7 % (39.0-53.0); HGB 11.9 gm/dL (13.0-17.5); Lymphocytes # (A) 0.7 k/uL (1.0-4.8); Lymphocytes % (A) 14 %; MCHC 33.2 g/dL (31.0-37.0); MCV 90.3 fL (80.0-100.0); Monocytes # (A) 0.2 k/uL (0-1.0); Monocytes % (A) 3 %; Neutrophils # (A) 3.9 k/uL (1.3-7.7); Neutrophils % (A) 79 %; Platelet Count 172 k/uL (150-450); RBC 3.95 m/uL (4.30-5.90); RDW 14.2 % (11.5-15.5); WBC 4.9 k/uL (3.8-10.6)
[2018-07-30 08:30] LABS: African American GFR (CKD) >90 (>60 ml/min/1.73 sqM); Anion Gap 5 mmol/L; Blood Urea Nitrogen 17 mg/dL (9-20); Calcium 8.9 mg/dL (8.4-10.2); Carbon Dioxide 31 mmol/L (22-30); Chloride 105 mmol/L (98-107); Glucose 101 mg/dL (74-99); Potassium 4.3 mmol/L (3.5-5.1); Sodium 141 mmol/L (137-145)
[2018-07-30] MEDS: METOPROLOL TARTRATE 25 MG TAB PO SCH ×2 (09:28→20:00)
[2018-07-30] MEDS: PANTOPRAZOLE 40 MG TABLET PO SCH (09:28)
[2018-07-30] MEDS: SERTRALINE 100 MG TAB PO SCH (09:28)
--- NOTE | 2018-07-30 10:15 | P.PN ---
Subjective Progress Note Date: 07/30/18 Principal diagnosis: Left sided spontaneous pneumothorax. 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 POD #4 placement of Thora-vent by emergency room physicians. POD #3 placement of left thoracostomy tube. The patient is currently sitting up to the bedside edge. He is in no acute distress. Currently he denies any complaints of pain or shortness of breath. He reports that the swelling to his neck and chest seems improved today. Left pleural chest tube remains in place to low continuous wall suction -20 cm H2O. Continuous air leak is present. Achieving 2500 mL on his incentive spirometry. Oxygen saturation are 98% on 5 L nasal cannula. He remains to have subcutaneous emphysema to his neck, upper back, bilateral upper extremities and to his upper chest which has decreased since yesterday. Objective - Vital Signs Vital signs: Vital Signs Temp 98.5 F 07/30/18 08:03 Pulse 75 07/30/18 08:35 Resp 16 07/30/18 08:35 BP 147/97 07/30/18 08:03 Pulse Ox 98 07/30/18 08:03 Intake & Output 07/29/18 07/30/18 07/30/18 18:59 06:59 18:59 Intake Total 540 Output Total 875 340 80 Balance -875 200 -80 Intake: Oral 540 Output: Chest Tube Drainage 275 40 80 Chest Tube Left 275 40 80 Urine 600 300 Other: Voiding Method Urinal # Voids 1 2 - Constitutional General appearance: Present: cooperative, no acute distress, obese - Respiratory Details: Lungs sounds are essentially clear to his bilateral upper lobes, few scattered crackles to his bilateral bases. Respirations are symmetrical and nonlabored. Oxygen saturation are 98% on 5 L nasal cannula. Left pleural chest tube remains in place to low continuous wall suction -20 cm H2O. Continuous air leak is present. Draining thin serosanguineous drainage. 80 mL output in the last 24 hours. Achieving 2500 mL on his incentive spirometry. - Cardiovascular Details: Regular rhythm and rate. S1 and S2 present, negative for S3, gallop or murmur. No edema present. Knee-high sequential compression devices in place was bilateral lower extremities. - Gastrointestinal Gastrointestinal Comment(s): Abdomen is soft, nontender and nondistended. Active bowel sounds all 4 abdominal quadrants. No guarding or rigidity. No organomegaly. - Genitourinary Genitourinary Comment(s): Voiding clear yellow urine. - Integumentary Integumentary Comment(s): Skin is warm and dry. No clubbing or cyanosis is present. Scattered subcu emphysema present to his bilateral upper extremities, neck, upper chest and back. No rash or abnormal pigmentation present. - Neurologic Neurologic: Present: CNII-XII intact - Musculoskeletal Musculoskeletal: Present: gait normal, strength equal bilaterally - Psychiatric Psychiatric: Present: A&O x's 3, appropriate affect, intact judgment & insight - Allied health notes Allied health notes reviewed: nursing - Labs CBC & Chem 7: 07/30/18 07:31 07/30/18 07:31 Labs: Abnormal Lab Results - Last 24 Hours (Table) 07/30/18 07/30/18 Range/Units 07:31 07:31 RBC 3.95 L (4.30-5.90) m/uL Hgb 11.9 L (13.0-17.5) gm/dL Hct 35.7 L (39.0-53.0) % Lymphocytes # 0.7 L (1.0-4.8) k/uL Carbon Dioxide 31 H (22-30) mmol/L Glucose 101 H (74-99) mg/dL - Imaging and Cardiology Chest x-ray: report reviewed, image reviewed Assessment and Plan Assessment: 1. Left-sided spontaneous pneumothorax, status post thoravent placement by the emergency room physicians 2. Acute hypoxic respiratory distress, increased pneumothorax, status post left thoracostomy tube placement 3. History of spontaneous pneumothorax 2 with bullous emphysema on the right side, status post VATS with blebectomy and mechanical pleurodesis on 10/30/2015 4. History of coronary artery disease with stent placement 6 years ago 5. Hypertension 6. Hyperlipidemia 7. Hypothyroidism 8. Previous tobacco dependence 9. Osteoarthritis 10. Subcutaneous emphysema Plan: 1. Continue left thoracostomy tube to low continuous wall suction -20 cm H2O. Monitor for air leak resolution. 2. Encourage continued smoking cessation. 3. Wean O2 as tolerated. Encourage incentive spirometry use 10 times every hour while awake. 4. Pain control with current medication regimen. 5. GI and DVT prophylaxis. 6. Will monitor daily chest x-rays. 7. Increase activity, ambulate as tolerated around the room. Do not disconnect his chest tube from wall suction. 8. The patient is tentatively scheduled for a left-sided VATS with bleb resection, possible thoracotomy and pleurodesis, for 08/01/2018 to be performed by Dr. Pollock. 9. Medical management of other comorbidities per primary care service. 10. Further recommendations follow based on patient's clinical course. Time with Patient: Greater than 30
[2018-07-30] MEDS: ATORVASTATIN 80 MG TAB PO SCH (20:00)
[2018-07-31] MEDS: KETOROLAC 30 MG/ML 1 ML VIAL IVP SCH ×4 (05:33→23:17)
[2018-07-31] MEDS: LEVOTHYROXINE 75 MCG TAB PO SCH (05:33)
[2018-07-31] MEDS: SERTRALINE 100 MG TAB PO SCH (07:22)
[2018-07-31] MEDS: METOPROLOL TARTRATE 25 MG TAB PO SCH ×2 (07:22→20:02)
[2018-07-31] MEDS: PANTOPRAZOLE 40 MG TABLET PO SCH (07:23)
--- NOTE | 2018-07-31 07:48 | XR ---
EXAMINATION TYPE: XR chest 1V portable DATE OF EXAM: 07/31/2018 HISTORY: pneumothorax. REFERENCE: Previous study dated 07/30/2018. FINDINGS: A left pleural drain remains in place. There is continuing subcutaneous emphysema on the le ft than throughout the neck. A tiny residual left apical pneumothorax persist, unchanged from previou s. There is left basilar airspace disease. There are small, bilateral effusions. IMPRESSION: 1. CONTINUING LEFT APICAL PNEUMOTHORAX. 2. LEFT BASILAR AIRSPACE DISEASE. 3. SMALL, BILATERAL EFFUSIONS.
--- NOTE | 2018-07-31 09:56 | P.PN ---
Subjective Progress Note Date: 07/30/18 This is a 67-year-old gentleman presented to the ER with complaints of worsening dyspnea; history of COPD, spontaneous pneumothorax, with bullous emphysema, blebectomy, pleurodesis, VATS, CAD with stent, hyperlipidemia, hypertension, osteoarthritis, hypothyroidism Chest x-ray reporting a large left-sided pneumothorax. Thoravent placed regarding spontaneous pneumothorax with mild tension component. Chest x-ray post Thoravent reported decreased left-sided pneumothorax with small residual pneumothorax at the left lung base. Thoravent replaced ;post chest x-ray reporting interval improvement. Cardiothoracic surgery consulted. 07/30/18 Patient is seen and evaluated in room at bedside resting comfortably; denies any complaint of shortness of breath or chest pain Labs are reviewed and stable with a white blood count of 4.9, hemoglobin 11.9; chemical profile sodium 141, potassium 4.3, B UN of 17 with creatinine of 0.96; blood sugars ranging between 123-168 Chest tube remains in place with continuous air leak and to wall suction. He is maintaining O2 saturations in the upper 90s on 5 L high flow nasal cannula. Temperature 99.2. Hemodynamically stable. White count 6.1. Hemoglobin 12.4. Creatinine 1.02. Continued on cefazolin. Working well with the incentive spi rometer. Objective - Vital Signs Vital signs: Vital Signs Temp 98.5 F 07/30/18 08:03 Pulse 75 07/30/18 08:35 Resp 16 07/30/18 08:35 BP 147/97 07/30/18 08:03 Pulse Ox 98 07/30/18 08:03 Intake & Output 07/29/18 07/30/18 07/30/18 18:59 06:59 18:59 Intake Total 540 Output Total 875 340 Balance -875 200 Intake: Oral 540 Output: Chest Tube Drainage 275 40 Chest Tube Left 275 40 Urine 600 300 Other: Voiding Method Urinal # Voids 1 2 - Exam HEAD: Evidence of subcutaneous emphysema. Normocephalic. EYES: Normal reaction of pupils, equal size. NOSE: Clear with pink turbinates. THROAT: Hoarseness. No erythema or exudates. NECK: Some continuous emphysema. No masses, no JVD. CHEST: The cutaneous emphysema. Left chest tube dressing dry and intact. LUNGS: Equal air entry with few scattered rhonchi, crackles in the left posterior base CVS: S1 and S2 normal with no audible murmur, regular rhythm. ABDOMEN: No hepatosplenomegaly, normal bowel sounds, no guarding or rigidity. SPINE: No scoliosis or deformity SKIN: No rashes CENTRAL NERVOUS SYSTEM: No focal deficits, tone is normal in all 4 extremities. EXTREMITIES: There is no peripheral edema. No clubbing, no cyanosis. Peripheral pulses are intact. - Labs CBC & Chem 7: 07/30/18 07:31 07/30/18 07:31 Labs: Abnormal Lab Results - Last 24 Hours (Table) 07/30/18 07/30/18 Range/Units 07:31 07:31 RBC 3.95 L (4.30-5.90) m/uL Hgb 11.9 L (13.0-17.5) gm/dL Hct 35.7 L (39.0-53.0) % Lymphocytes # 0.7 L (1.0-4.8) k/uL Carbon Dioxide 31 H (22-30) mmol/L Glucose 101 H (74-99) mg/dL Assessment and Plan Assessment: 1. Left sided pneumothorax - Patient has history of right-sided pneumothorax requiring VATS and wedge resection with chemical pleurodesis - Patient failed Thora-Vent and is status post chest tube placement with resulting adequate expansion of the lung - Patient remains on IV cefazolin 1 g every 8 hours - Continues to have persistent air leak; pulmonary and cardiothoracic surgery are following and recommending to continue chest 2. Hypertension; stable on home dose of metoprolol 25 mg twice a day 3. Hyperlipidemia; continue with Lipitor 80 mg by mouth daily at bedtime 4. Hypothyroidism; Synthroid 150 MCG daily 5. Coronary artery disease/ stent placement; stable 6. DVT prophylaxis; SCDs CODE STATUS; full code Time with Patient: Greater than 30
--- NOTE | 2018-07-31 11:25 | P.PN ---
Subjective Progress Note Date: 07/31/18 Principal diagnosis: Left sided spontaneous pneumothorax. 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 POD #5 placement of Thora-vent by emergency room physicians. POD #4 placement of left thoracostomy tube. The patient is currently lying in bed. Currently he denies any complaints of pain or shortness of breath. He remains with subcutaneous emphysema present to his neck, bilateral upper extremities, upper chest and back. Left pleural chest tube remains in place to low continuous wall suction -20 cm H2O. Continuous air leak is present. Achieving 2500 mL on his incentive spirometry. Oxygen saturation are 97% on 5 L nasal cannula. He is scheduled for a left VATS with wedge resection and pleurodesis to be performed by Dr. Pollock tomorrow 08/01/2018. Objective - Vital Signs Vital signs: Vital Signs Temp 99.0 F 07/31/18 07:26 Pulse 93 07/31/18 07:26 Resp 16 07/31/18 07:26 BP 144/94 07/31/18 07:26 Pulse Ox 97 07/31/18 07:26 Intake & Output 07/30/18 07/31/18 07/31/18 18:59 06:59 18:59 Intake Total 472 480 240 Output Total 420 65 195 Balance 52 415 45 Intake: Oral 472 480 240 Output: Chest Tube Drainage 120 65 195 Chest Tube Left 120 65 195 Urine 300 Other: Voiding Method Urinal # Voids 2 - Constitutional General appearance: Present: cooperative, no acute distress, obese - Respiratory Details: Lungs sounds essentially clear throughout, diminished to his bilateral bases left greater than right. Respirations are symmetrical and nonlabored. Oxygen saturation are 97% on 5 L nasal cannula. Achieving 2500 mL on his incentive spirometry. Subcu emphysema present to his neck, bilateral upper extremities, upper chest and back. Left pleural chest tube to continuous wall suction -20 cm H2O. Continuous air leak is present. Draining thin serosanguineous drainage. - Cardiovascular Details: Regular rhythm and rate. S1 and S2 present, negative for S3, gallop or murmur. No edema present. Sequential compression devices in place to his bilateral lower extremities. - Gastrointestinal Gastrointestinal Comment(s): Abdomen is soft, nontender and nondistended. Active bowel sounds all 4 abdomina l quadrants. No guarding or rigidity. No organomegaly. Tolerating oral intake. - Genitourinary Genitourinary Comment(s): Voiding clear yellow urine. - Integumentary Integumentary Comment(s): Skin is warm and dry. No clubbing or cyanosis is present. Left pleural chest tube site with dressing clean, dry and intact. - Neurologic Neurologic: Present: CNII-XII intact - Musculoskeletal Musculoskeletal: Present: gait normal, strength equal bilaterally - Psychiatric Psychiatric: Present: A&O x's 3, appropriate affect, intact judgment & insight - Allied health notes Allied health notes reviewed: nursing - Labs CBC & Chem 7: 07/30/18 07:31 07/30/18 07:31 - Imaging and Cardiology Chest x-ray: report reviewed, image reviewed Assessment and Plan Assessment: 1. Left-sided spontaneous pneumothorax, status post thoravent placement by the emergency room physicians 2. Acute hypoxic respiratory distress, increased pneumothorax, status post left thoracostomy tube placement 3. History of spontaneous pneumothorax 2 with bullous emphysema on the right side, status post VATS with blebectomy and mechanical pleurodesis on 10/30/2015 4. History of coronary artery disease with stent placement 6 years ago 5. Hypertension 6. Hyperlipidemia 7. Hypothyroidism 8. Previous tobacco dependence 9. Osteoarthritis 10. Subcutaneous emphysema Plan: 1. Continue left thoracostomy tube to low continuous wall suction -20 cm H2O. Monitor for air leak resolution. 2. Encourage continued smoking cessation. 3. Wean O2 as tolerated. Encourage incentive spirometry use 10 times every hour while awake. 4. Pain control with current medication regimen. 5. GI and DVT prophylaxis. 6. Will monitor daily chest x-rays. 7. Increase activity, ambulate as tolerated around the room. Do not disconnect his chest tube from wall suction. 8. The patient is scheduled for a left-sided VATS with bleb resection, possible thoracotomy and pleurodesis, for tomorrow 08/01/2018 to be performed by Dr. Pollock. 9. Nothing by mouth after midnight. 10. Medical management of other comorbidities per primary care service. 11. Further recommendations follow based on patient's clinical course. Time with Patient: Greater than 30
--- NOTE | 2018-07-31 13:54 | P.PN ---
Subjective Progress Note Date: 07/31/18 Principal diagnosis: Spontaneous pneumothorax status post chest tube placement This is a 67-year-old gentleman presented to the ER with complaints of worsening dyspnea; history of COPD, spontaneous pneumothorax, with bullous emphysema, blebectomy, pleurodesis, VATS, CAD with stent, hyperlipidemia, hypertension, osteoarthritis, hypothyroidism Chest x-ray reporting a large left-sided pneumothorax. Thoravent placed regarding spontaneous pneumothorax with mild tension component. Chest x-ray post Thoravent reported decreased left-sided pneumothorax with small residual pneumothorax at the left lung base. Thoravent replaced ;post chest x-ray reporting interval improvement. Cardiothoracic surgery consulted. 07/30/18 Patient is seen and evaluated in room at bedside resting comfortably; denies any complaint of shortness of breath or chest pain Labs are reviewed and stable with a white blood count of 4.9, hemoglobin 11.9; chemical profile sodium 141, potassium 4.3, B UN of 17 with creatinine of 0.96; blood sugars ranging between 123-168 Chest tube remains in place with continuous air leak and to wall suction. He is maintaining O2 saturations in the upper 90s on 5 L high flow nasal cannula. Temperature 99.2. Hemodynamically stable. White count 6.1. Hemoglobin 12.4. Creatinine 1.02. Continued on cefazolin. Working well with the incentive spirometer. 07/31/2018 The patient is currently lying in bed. Currently he denies any complaints of pain or shortness of breath. He remains with subcutaneous emphysema present to his neck, bilateral upper extremities, upper chest and back. Left pleural chest tube remains in place to low continuous wall suction -20 cm H2O. Continuous air leak is present. Achieving 2500 mL on his incentive spirometry. Oxygen saturation are 97% on 5 L nasal cannula. Laboratory review shows a white blood count of 4.9, hemoglobin 11.9 ; chemical profile sodium of 141, potassium 4.3, BUN of 17 with creatinine of 0.96 He is scheduled for a left VATS with wedge resection and pleurodesis to be performed by Dr. Pollock tomorrow 08/01/2018. Objective - Vital Signs Vital signs: Vital Signs Temp 99.0 F 07/31/18 07:26 Pulse 93 07/31/18 07:26 Resp 16 07/31/18 07:26 BP 144/94 07/31/18 07:26 Pulse Ox 97 07/31/18 07:26 Intake & Output 07/30/18 07/31/18 07/31/18 18:59 06:59 18:59 Intake Total 472 480 240 Output Total 420 65 130 Balance 52 415 110 Intake: Oral 472 480 240 Output: Chest Tube Drainage 120 65 130 Chest Tube Left 120 65 130 Urine 300 Other: Voiding Method Urinal # Voids 2 - Exam HEAD: Evidence of subcutaneous emphysema. Normocephalic. EYES: Normal reaction of pupils, equal size. NOSE: Clear with pink turbinates. THROAT: Hoarseness. No erythema or exudates. NECK: Some continuous emphysema. No masses, no JVD. CHEST: The cutaneous emphysema. Left chest tube dressing dry and intact. LUNGS: Equal air entry with few scattered rhonchi, crackles in the left posterior base CVS: S1 and S2 normal with no audible murmur, regular rhythm. ABDOMEN: No hepatosplenomegaly, normal bowel sounds, no guarding or rigidity. SPINE: No scoliosis or deformity SKIN: No rashes CENTRAL NERVOUS SYSTEM: No focal deficits, tone is normal in all 4 extremities. EXTREMITIES: There is no peripheral edema. No clubbing, no cyanosis. Peripheral pulses are intact. - Labs CBC & Chem 7: 07/30/18 07:31 07/30/18 07:31 Assessment and Plan Assessment: 1. Left sided pneumothorax - Patient has history of right-sided pneumothorax requiring VATS and wedge resection with chemical pleurodesis - Patient failed Thora-Vent and is status post chest tube placement with resulting adequate expansion of the lung - Patient remains on IV cefazolin 1 g every 8 hours - Continues to have persistent air leak; pulmonary and cardiothoracic surgery are following and recommending to continue chest 2. Hypertension; stable on home dose of metoprolol 25 mg twice a day 3. Hyperlipidemia; continue with Lipitor 80 mg by mouth daily at bedtime 4. Hypothyroidism; Synthroid 150 MCG daily 5. Coronary artery disease/ stent placement; stable 6. DVT prophylaxis; SCDs CODE STATUS; full code Time with Patient: Greater than 30
[2018-07-31] MEDS: ATORVASTATIN 80 MG TAB PO SCH (20:02)
[2018-08-01] MEDS: KETOROLAC 30 MG/ML 1 ML VIAL IVP SCH (05:35)
[2018-08-01] MEDS: LEVOTHYROXINE 75 MCG TAB PO SCH (05:35)
[2018-08-01] MEDS: METOPROLOL TARTRATE 25 MG TAB PO SCH ×2 (07:45→20:16)
[2018-08-01] MEDS: SERTRALINE 100 MG TAB PO SCH (07:45)
[2018-08-01] MEDS: PANTOPRAZOLE 40 MG TABLET PO SCH (07:45)
--- NOTE | 2018-08-01 08:29 | XR ---
EXAMINATION TYPE: XR chest 1V portable DATE OF EXAM: 08/01/2018 CLINICAL HISTORY: Difficulty breathing and chest tube progress study. TECHNIQUE: Single AP portable upright view of the chest is obtained. COMPARISON: Chest x-ray from one day earlier and older studies. FINDINGS: There is left-sided chest tube in place. There is stable tiny left apical pneumothorax. Th ere is extensive left-sided subcutaneous emphysema. There is chronic parenchymal change bilaterally w ith persistent lateral right lung scarring. No new focal airspace opacity or enlarging pleural effusi ons. No mediastinal shift. Cardiac silhouette size is stable and within normal limits. Osseous struct ures are intact. IMPRESSION: Overall stable findings, small left apical pneumothorax despite chest tube placement wi th significant adjacent subcutaneous emphysema on background of chronic emphysematous and parenchymal changes bilaterally.
[2018-08-01] MEDS ORDERED: CALCIUM CARBONATE 500 MG CHEWABLE PO PRN (09:14)
--- NOTE | 2018-08-01 14:31 | P.PN ---
Subjective Progress Note Date: 08/01/18 Principal diagnosis: Left sided spontaneous pneumothorax. 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 POD #6 placement of Thora-vent by emergency room physicians. POD #5 placement of left thoracostomy tube. The patient is currently lying in bed. He denies any complaints of pain or shortness of breath. Remains with subcutaneous emphysema present to his neck, bilateral upper extremities, upper chest and back. Left pleural chest tube remains in place to low continuous wall suction -20 cm H2O. Continuous air leak is present. Achieving 2500 mL on his incentive spirometry. Oxygen saturation are 96% on 5 L nasal cannula. He's been up ambulating in his room. Objective - Vital Signs Vital signs: Vital Signs Temp 98.2 F 08/01/18 07:00 Pulse 81 08/01/18 07:00 Resp 16 08/01/18 07:00 BP 172/82 08/01/18 07:00 Pulse Ox 96 08/01/18 07:00 Intake & Output 07/31/18 08/01/18 08/01/18 18:59 06:59 18:59 Intake Total 720 780 Output Total 115 80 430 Balance 605 700 -430 Intake: Oral 720 780 Output: Chest Tube Drainage 115 80 30 Chest Tube Left 115 80 30 Urine 400 Other: Voiding Method Urinal # Voids 3 2 - Constitutional General appearance: Present: cooperative, no acute distress, obese - Respiratory Details: Lung sounds essentially clear throughout, diminished to his left lower lobe. Respirations are symmetrical and nonlabored. Oxygen saturation are 96% on 5 L nasal cannula. Left pleural chest tube remains in place to low continuous wall suction -20 cm H2O. Continuous air leak is present. Draining thin serosanguineous drainage with 100 mL output in the last 24 hours. - Cardiovascular Details: Regular rhythm and rate. S1 and S2 present, negative for S3, gallop or murmur. No edema present. Sequential compression devices in place was bilateral lower extremities. - Gastrointestinal Gastrointestinal Comment(s): Abdomen is soft, nontender and nondistended. No guarding or rigidity. No organomegaly. Active bowel sounds all 4 abdominal quadrants. - Genitourinary Genitourinary Comment(s): Voiding clear yellow urine. - Integumentary Integumentary Comment(s): Skin is warm and dry. No clubbing or cyanosis is present. No rash or abnormal pigmentation present. - Neurologic Neurologic: Present: CNII-XII intact - Musculoskeletal Musculoskeletal: Present: gait normal, strength equal bilaterally - Psychiatric Psychiatric: Present: A&O x's 3, appropriate affect, intact judgment & insight - Allied health notes Allied health notes reviewed: nursing - Labs CBC & Chem 7: 07/30/18 07:31 07/30/18 07:31 - Imaging and Cardiology Chest x-ray: report reviewed, image reviewed Assessment and Plan Assessment: 1. Left-sided spontaneous pneumothorax, status post thoravent placement by the emergency room physicians 2. Acute hypoxic respiratory distress, increased pneumothorax, status post left thoracostomy tube placement 3. History of spontaneous pneumothorax 2 with bullous emphysema on the right side, status post VATS with blebectomy and mechanical pleurodesis on 10/30/2015 4. History of coronary artery disease with stent placement 6 years ago 5. Hypertension 6. Hyperlipidemia 7. Hypothyroidism 8. Previous tobacco dependence 9. Osteoarthritis 10. Subcutaneous emphysema Plan: 1. Continue left thoracostomy tube to low continuous wall suction -20 cm H2O. Monitor for air leak resolution. 2. Encourage continued smoking cessation. 3. Wean O2 as tolerated. Encourage incentive spirometry use 10 times every hour while awake. 4. Pain control with current medication regimen. 5. GI and DVT prophylaxis. 6. Will monitor daily chest x-rays. 7. Increase activity, ambulate as tolerated around the room. Do not disconnect his chest tube from wall suction. 8. The patient will be scheduled for a left-sided VATS with wedge resection, possible thoracotomy and pleurodesis for Wednesday08/02/[address] Sergio Pollock to perform. 9. Medical management of other comorbidities per primary care service. 10. Further recommendations follow based on patient's clinical course. Time with Patient: Greater than 30
[2018-08-01] MEDS ORDERED: TEMAZEPAM 15 MG CAP PO PRN (17:47)
[2018-08-01] MEDS ORDERED: ALPRAZolam 0.25 MG TAB PO PRN (17:47)
[2018-08-01] MEDS: ATORVASTATIN 80 MG TAB PO SCH (20:16)
[2018-08-01] MEDS: HEPARIN SODIUM,PORCINE 5,000 UNIT/ML 1 ML VIAL SQ SCH ×2 (20:16→20:19)
--- NOTE | 2018-08-01 22:04 | PN ---
PROGRESS NOTE DATE OF SERVICE: 08/01/2018 This 67-year-old gentleman who was admitted with left pneumothorax had chest tube insertion. The patient also underwent VATS and wedge resection and chemical pleurodesis at this time. The patient failed ThoraVent initially. The patient is seen by Dr. Pinto in the outpatient setting. PAST MEDICAL HISTORY: Reviewed. REVIEW OF SYSTEMS: Cardiovascular: No angina or palpitations. RESPIRATORY: As mentioned earlier. GI: As mentioned earlier. : No dysuria. NERVOUS SYSTEMS: As mentioned earlier. MEDICATIONS: Reviewed and include: 1. [place] 5 mg q.4 p.r.n. 2. Lipitor 80 mg q.h.s. 3. Cepacol. 4. Tums. 5. Cefazolin 1 g IV q.8h. 6. Synthroid 150 mcg. 7. Lopressor 25 mg p.o. b.i.d. 8. Narcan 0.2 q.2h p.r.n. 9. Zofran. 10.Protonix. 11.Zoloft. PHYSICAL EXAM: Patient is alert, oriented x3. Pulse 89, blood pressure 190/80. Respirations 16, temperature 98.2, pulse ox 98% on 5 L. HEENT: Conjunctivae normal. Oral mucosa moist. NECK is no jugular venous distention. No carotid bruit. No lymph node enlargement. CARDIOVASCULAR: S1, S2 muffled. RESPIRATORY: Breath sounds diminished in the bases. Bilateral scattered rhonchi and crackles. Breath sounds diminished on the left side. Chest tube is present. ABDOMEN: Soft, obese, nontender. LEGS: No edema. No swelling. CENTRAL NERVOUS SYSTEM: Higher functions as mentioned earlier. Moves all four limbs. No focal deficits. Lymphatics: No lymph nodes palpable in the neck, axillae or groin. SKIN: No ulcer, no rash, no bleeding. JOINTS: No active deforming arthropathy. LABS: WBC 4.2, hemoglobin 11.9. ASSESSMENT: 1. Acute left-sided pneumothorax, status post VATS and wedge resection with chemical pleurodesis. 2. Failed ThoraVent. 3. Hypertension. 4. Hyperlipidemia. 5. Hypothyroidism. 6. History of coronary artery disease stent. 7. Obesity with body mass of 34.9. 8. History of hypothyroidism. 9. Remote history of nicotine dependence. 10.FULL CODE. RECOMMENDATIONS AND DISCUSSION: This 67-year-old gentleman who presented with multiple complex medical issues. We will monitor the patient closely. Continue the current medications and symptomatic treatment. Otherwise, the most recent chest x-ray personally reviewed by me showed significantly stable findings with the left apical pneumothorax. We will follow the patient closely with cardiothoracic surgery. Recommending to continue with thoracostomy tube with wall suction -20 cm of water. Medications reviewed as mentioned earlier. I would add DVT prophylaxis and proton pump inhibitors. Continue the rest of medications. The home medication reconciliation has been done. Further recommendations to follow. Repeat labs also will be sought. MMODL / IJN: [id number] /
[2018-08-02] MEDS: LEVOTHYROXINE 75 MCG TAB PO SCH (05:47)
[2018-08-02] MEDS: HEPARIN SODIUM,PORCINE 5,000 UNIT/ML 1 ML VIAL SQ SCH ×2 (07:51→22:17)
[2018-08-02] MEDS: SERTRALINE 100 MG TAB PO SCH (07:52)
[2018-08-02] MEDS: PANTOPRAZOLE 40 MG TABLET PO SCH (07:52)
[2018-08-02] MEDS: METOPROLOL TARTRATE 25 MG TAB PO SCH ×2 (07:54→22:16)
--- NOTE | 2018-08-02 08:16 | XR ---
EXAMINATION TYPE: XR chest 1V portable DATE OF EXAM: 08/02/2018 COMPARISON: Prior chest x-ray 08/01/2018 HISTORY: Chest tube, pneumothorax TECHNIQUE: Single frontal view of the chest is obtained. FINDINGS: Left-sided chest tube is overlying the mid lung. There is extensive subcutaneous emphysema which may obscure underlying detail. No sizable pneumothorax is evident. Patchy bibasilar density pe rsists. Heart size is stable. Aorta is dense. IMPRESSION: Left-sided chest tube, pneumothorax
[2018-08-02 08:31] LABS: African American GFR (CKD) >90 (>60 ml/min/1.73 sqM); Anion Gap 6 mmol/L; Blood Urea Nitrogen 14 mg/dL (9-20); Calcium 9.4 mg/dL (8.4-10.2); Carbon Dioxide 35 mmol/L (22-30); Chloride 103 mmol/L (98-107); Glucose 105 mg/dL (74-99); Potassium 4.5 mmol/L (3.5-5.1); Sodium 144 mmol/L (137-145)
[2018-08-02 08:42] LABS: Basophils % (A) 0 %; Eosinophils # (A) 0.1 k/uL (0-0.7); Eosinophils % (A) 3 %; HCT 39.1 % (39.0-53.0); HGB 12.6 gm/dL (13.0-17.5); Lymphocytes % (A) 19 %; MCH 29.7 pg (25.0-35.0); MCHC 32.3 g/dL (31.0-37.0); Mean Platelet Volume 6.9; Monocytes # (A) 0.2 k/uL (0-1.0); Monocytes % (A) 4 %; Neutrophils # (A) 3.7 k/uL (1.3-7.7); Neutrophils % (A) 73 %; Platelet Count 227 k/uL (150-450); RBC 4.25 m/uL (4.30-5.90); RDW 14.5 % (11.5-15.5); WBC 5.1 k/uL (3.8-10.6)
[2018-08-02] MEDS ORDERED: LIDOCAINE 1% 20 ML VIAL (10MG/ML) FOR IV START INTRADERMA ONE (13:25)
[2018-08-02] MEDS ORDERED: IV FLUID CONTINUATION 700 ML IV ONE (13:25)
[2018-08-02] MEDS ORDERED: LACTATED RINGERS 1,000 ML IV ONE ×3 (13:25→17:33)
[2018-08-02] MEDS ORDERED: MIDAZOLAM (PF) 2 MG/2 ML VIAL IV ONE (14:08)
[2018-08-02] MEDS ORDERED: fentaNYL (PF) 50 MCG/ML 2 ML AMP IVP ONE (14:23)
[2018-08-02] MEDS ORDERED: NEOSTIGMINE 1 MG/ML 10 ML VIAL ONE (14:38)
[2018-08-02] MEDS ORDERED: LIDOCAINE 1% INJ 10MG/ML (20 ML MDV) ONE (14:38)
[2018-08-02] MEDS ORDERED: PROPOFOL 10 MG/ML 20 ML VIAL IV ONE (14:38)
[2018-08-02] MEDS ORDERED: GLYCOPYRROLATE 0.2 MG/ML 2 ML VIAL ONE (14:38)
[2018-08-02] MEDS ORDERED: SUCCINYLCHOLINE CHLORIDE 100 MG/5 ML SYR IV ONE (14:38)
[2018-08-02] MEDS ORDERED: MIDAZOLAM 2 MG/2 ML VIAL ONE (14:38)
[2018-08-02] MEDS ORDERED: ROCURONIUM BROMIDE 10 MG/ML 10 ML VIAL IV ONE (14:38)
[2018-08-02] MEDS ORDERED: fentaNYL (PF) 50 MCG/ML 2 ML AMP ONE (14:38)
[2018-08-02] MEDS ORDERED: SODIUM CHLORIDE 0.9% 100 ML with ceFAZolin 2,000 MG IV ONE ×2 (15:25)
--- NOTE | 2018-08-02 15:26 | P.ANPRN ---
Procedure Note - Anesthesia - Invasive Line Arterial Line Time Out Performed: Yes Date of Procedure: 08/02/18 Location of Patient Procedure: PreOp Preparation: Sterile Prep, Sterile Dressing Arterial Line Location: Radial Narrative: Informed consent obtained from the patient. Procedure was performed under complete aseptic precautions. The right wrist is slightly extended and placed on a roll of cloth. Radial artery palpated and appeared to have a intact collateral circulation. Front of the wrist was cleaned with ChloraPrep. It was draped and 2 mL of 1% lidocaine was infiltrated and ability into the front of the wrist. A 20-gauge two and half inch Arrow arterial catheter was inserted and a bright red blood/back was noticed. It was connected to the pressure monitoring line and the flashback was confirmed. The line was sutured into the skin. Tegaderm dressing was applied. Patient tolerated the procedure very well with no apparent complications.
[2018-08-02] MEDS ORDERED: BUPIVACAINE (PF) 0.5% 30 ML VIAL SQ ONE ×2 (15:37)
[2018-08-02] MEDS ORDERED: IPRATROPIUM-ALBUTEROL 3 ML NEB IH PRN (18:09)
[2018-08-02 18:55] LABS: Basophils % (A) 0 %; Eosinophils # (A) 0.2 k/uL (0-0.7); Eosinophils % (A) 2 %; HCT 39.1 % (39.0-53.0); HGB 12.3 gm/dL (13.0-17.5); Lymphocytes % (A) 12 %; MCH 28.8 pg (25.0-35.0); MCHC 31.5 g/dL (31.0-37.0); MCV 91.3 fL (80.0-100.0); Mean Platelet Volume 7.4; Monocytes # (A) 0.4 k/uL (0-1.0); Monocytes % (A) 4 %; Neutrophils % (A) 82 %; Platelet Count 274 k/uL (150-450); RBC 4.28 m/uL (4.30-5.90); RDW 14.6 % (11.5-15.5); WBC 8.6 k/uL (3.8-10.6)
--- NOTE | 2018-08-02 18:56 | XR ---
EXAMINATION TYPE: XR chest 1V DATE OF EXAM: 08/02/2018 COMPARISON: Today HISTORY: Postop wedge resection TECHNIQUE: Single frontal view of the chest is obtained. FINDINGS: There is a left chest tube with the tip at the left lung apex. I see no pneumothorax. Ther e is soft tissue air on the left lateral chest wall. Trachea is midline. There is some linear lucency over the mediastinum that could relate to mediastinal air unchanged. Heart size is normal. There is no heart failure. IMPRESSION: This probably mediastinal air unchanged. Chest tube in good position. No pneumothorax. N o significant change compared to exam this morning.
[2018-08-02] MEDS: IPRATROPIUM-ALBUTEROL 3 ML NEB IH SCH (19:42)
[2018-08-02] MEDS: KETOROLAC 30 MG/ML 1 ML VIAL IVP SCH (21:46)
[2018-08-02] MEDS: ATORVASTATIN 80 MG TAB PO SCH (22:15)
[2018-08-02] MEDS: ceFAZolin IN SWFI 2 GM/20 ML SYRINGE IVP SCH (22:16)
[2018-08-02] MEDS: HYDROcodone/APAP 5-325MG 1 EACH TAB PO PRN (22:17)
[2018-08-02] MEDS: BENZOCAINE/MENTHOL LOZENG 1 EACH LOZENGE MUCOUS MEM PRN (22:18)
--- NOTE | 2018-08-02 23:22 | PN ---
PROGRESS NOTE DATE OF SERVICE: 08/02/2018 This 67-year-old gentleman who was admitted with left pneumothorax had VATS and wedge resection. The patient underwent VATS and wedge resection. The patient is being closely monitored. Chest tubes are in place. No chest pain. No palpitations. No fever. On exam, alert and oriented x3. Pulse is 72, blood pressure 143/74, respiration 16, temperature normal, pulse ox 100% on 2 L. HEENT: Conjunctivae normal. NECK: No jugular venous distention. CARDIOVASCULAR SYSTEM: S1, S2 muffled. RESPIRATORY SYSTEM: Breath sounds diminished at the bases. A few scattered rhonchi and crackles. ABDOMEN: Soft, non-tender. LEGS: No edema. No swelling. NERVOUS SYSTEM: No focal deficit. LABS: WBC 8.6, hemoglobin 12.3. ASSESSMENT: 1. Acute left-sided pneumothorax, status post failed Thora-Vent insertion and VATS and wedge resection and talc pleurodesis. 2. Hypertension. 3. Hyperlipidemia. 4. Hypothyroidism. 5. History of coronary artery disease, stent. 6. Obesity with body mass index of 34.9. 7. History of hypothyroidism. 8. Remote history of nicotine dependence. 9. FULL CODE. RECOMMENDATIONS AND DISCUSSION: I recommend to continue current medications, continue with the monitoring, symptomatic treatment. Incentive spirometry. Prognosis guarded. Further recommendations to follow. MMODL / IJN: [id number] /
[2018-08-03] MEDS: KETOROLAC 30 MG/ML 1 ML VIAL IVP SCH ×4 (00:03→17:43)
[2018-08-03] MEDS: ceFAZolin IN SWFI 2 GM/20 ML SYRINGE IVP SCH (05:36)
[2018-08-03] MEDS: LEVOTHYROXINE 75 MCG TAB PO SCH (05:36)
--- NOTE | 2018-08-03 07:37 | OP ---
OPERATIVE REPORT DATE OF SURGERY: 08/02/2018 PREOPERATIVE DIAGNOSIS: Spontaneous left pneumothorax. POSTOPERATIVE DIAGNOSIS: Spontaneous left pneumothorax. PROCEDURE: 1. Left VATS with bleb resection. 2. Mechanical pleurodesis. SURGEON: Sergio Pollock MD. CLIENT DEVELOPMENT CONSULTANT: BAR Mitchell. ANESTHESIA: General. SPECIMEN: 1. Left upper lobe wedge with bleb. 2. Left upper lobe apex ESTIMATED BLOOD LOSS: 20 mL. COMPLICATIONS: None. INDICATION: The patient is a 67-year-old male with a history of coronary disease, hypertension, hyperlipidemia, and a remote history of tobacco use who underwent right VATS bleb resection by Dr. Alberto in 2016 secondary to spontaneous pneumothorax. He presented to the emergency department on this occasion with similar complaints and was found to have a large left pneumothorax. Left VATS with bleb resection and mechanical pleurodesis was recommended. The risks, benefits, and alternatives to this procedure were discussed with the patient. All his questions were answered. Consent was obtained. FINDINGS: There were numerous large blebs located on the surface of the left upper lobe. PROCEDURE IN DETAIL: The patient was taken to the operating room and placed supine on the operating room table. After the induction of general anesthesia, a double-lumen endotracheal tube was placed by the anesthesia service and its position was confirmed using a bronchoscope. The patient was then placed in the right lateral decubitus position with the left side up. The previously placed chest tube was removed. The left chest and flank were then prepped and draped in the usual sterile fashion. An incision was made at approximately the 6th intercostal space along the anterior axillary line. With the left lung deflated, dissection was taken down through the patient's subcutaneous tissue and the left pleural space was entered bluntly. A thoracoscope was introduced into the chest. There was good separation of the lungs. Numerous blebs were noted scattered across the surface of the left upper lobe. Two additional working ports were then placed under direct vision. Both the left upper lobe and left lower lobe were carefully inspected. The left upper lobe did have adhesions between the apex and the chest wall. There were additional adhesions noted medially as well. Using a combination of blunt dissection and electrocautery, the left apex was freed from the chest wall. No additional blebs were noted in the left lower lobe. Using an Endo MANUEL stapling device with multiple reinforced loads, a portion of the left upper lobe containing multiple blebs was resected. Care was taken that the reinforced staple line was through healthy lung parenchyma both anteriorly and posteriorly. An additional wedge resection was taken from the left upper lobe apex. All staple lines containing reinforced pericardial strips were intact. Both specimens were sent to pathology. The left chest was then filled with sterile saline solution. I asked the anesthesia service to inflate the left lung and both the left upper lobe and left lower lobe inflated nicely. There was no bubbling noted either at remote parenchymal sites or at the staple lines. Using sponge balls as well as a Bovie scratch pad, mechanical pleurodesis was performed throughout the left chest over all the parietal surfaces. A straight 32-Chinese chest tube was placed and directed posteriorly towards the apex. At this point, the left lung was inflated under direct vision and it appeared to expand nicely. No obvious air leaks were noted. The wounds were then closed in layers. Local anesthetic was infiltrated. Sterile dressings were applied. The patient appeared to tolerate the procedure well. There were no immediate complications. He was extubated at the completion of the case and returned to the recovery room in stable condition. Of note, there was no air leak noted in the atrium chamber at the completion of the case. MMODL / IJN: [id number] / [facility] HOSPITALNguyen
[2018-08-03] MEDS: METOPROLOL TARTRATE 25 MG TAB PO SCH ×2 (08:19→21:23)
[2018-08-03] MEDS: IPRATROPIUM-ALBUTEROL 3 ML NEB IH SCH ×4 (08:30→20:50)
--- NOTE | 2018-08-03 08:48 | XR ---
EXAMINATION TYPE: XR chest 1V DATE OF EXAM: 08/03/2018 COMPARISON: 08/02/2018 HISTORY: 87-year-old male postoperative left VATS with wedge resection TECHNIQUE: Single frontal view of the chest is obtained. FINDINGS: Left-sided chest tube is in place. There may be a trace left-sided effusion. No appreciable pneumotho rax. Subcutaneous emphysema along the left chest wall. Mild patchy density peripheral right base luci ins. Heart upper limits of normal in size. IMPRESSION: Possible trace left effusion. Left-sided chest tube in place without appreciable pneumothorax. Subcut aneous emphysema on the left and stable patchy density at the peripheral right base.
[2018-08-03 09:28] LABS: Basophils % (A) 0 %; Eosinophils # (A) 0.1 k/uL (0-0.7); Eosinophils % (A) 2 %; HGB 11.5 gm/dL (13.0-17.5); Lymphocytes % (A) 15 %; MCH 29.6 pg (25.0-35.0); MCV 92.6 fL (80.0-100.0); Mean Platelet Volume 7.1; Monocytes # (A) 0.3 k/uL (0-1.0); Monocytes % (A) 5 %; Neutrophils # (A) 4.8 k/uL (1.3-7.7); Neutrophils % (A) 77 %; Platelet Count 209 k/uL (150-450); RBC 3.89 m/uL (4.30-5.90); RDW 14.8 % (11.5-15.5); WBC 6.2 k/uL (3.8-10.6)
--- NOTE | 2018-08-03 09:46 | P.PN ---
Subjective Progress Note Date: 08/03/18 Principal diagnosis: Left sided spontaneous pneumothorax. 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 POD #1 left video-assisted thoracoscopic surgery with bleb resection and mechanical pleurodesis. POD #8 placement of Thora-vent by emergency room physicians. POD #7 placement of left thoracostomy tube. The patient is currently sitting up to his bedside edge eating his breakfast. He denies any complaints of pain or shortness of breath. Left pleural chest tube is in place to low continuous wall suction -20 cm H2O. No air leak is present. His subcu emphysema has much improved. He remains on 2 L nasal cannula with oxygen saturations 95%. Achieving 1500 mL on his incentive spirometry. He reports that he feels like he has a little bit of a sore throat but denies any complaints of swallowing. Objective - Vital Signs Vital signs: Vital Signs Temp 98.4 F 08/03/18 07:35 Pulse 77 08/03/18 08:40 Resp 18 08/03/18 07:35 BP 107/71 08/03/18 07:35 Pulse Ox 94 L 08/03/18 07:35 Intake & Output 08/02/18 08/03/18 08/03/18 18:59 06:59 18:59 Intake Total 2600 Output Total 565 495 Balance 2035 -495 Intake: IV 2350 Oral 250 Output: Chest Tube Drainage 80 145 Chest Tube Left 80 145 Urine 400 350 Estimated Blood Loss 85 Other: Voiding Method Urinal - Constitutional General appearance: Present: cooperative, no acute distress, obese - Respiratory Details: Lung sounds essentially clear throughout, diminished to his left lower lobe. Respirations are symmetrical and nonlabored. Oxygen saturation 95% on 2 L nasal cannula. Achieving 1500 mL on his incentive spirometry. Left pleural chest tube remains in place to low continuous wall suction -20 cm H2O. Draining thin serosanguineous drainage with 200 mL output since surgery yesterday. No air leak is present. - Cardiovascular Details: Regular rhythm and rate. S1 and S2 present, negative for S3, gallop or murmur. Remote telemetry showing normal sinus rhythm heart rate 97. No edema present. Knee-high sequential compression devices in place to his bilateral lower extremities. - Gastrointestinal Gastrointestinal Comment(s): Abdomen is soft, nontender and nondistended. Active bowel sounds all 4 abdominal quadrants. No guarding or rigidity. No organomegaly. - Genitourinary Genitourinary Comment(s): Voiding clear yellow urine. - Integumentary Integumentary Comment(s): Skin is warm and dry. No clubbing or cyanosis is present. Left lateral chest incisions clean, dry and approximated. No drainage or redness is present. - Neurologic Neurologic: Present: CNII-XII intact - Musculoskeletal Musculoskeletal: Present: gait normal, strength equal bilaterally - Psychiatric Psychiatric: Present: A&O x's 3, appropriate affect, intact judgment & insight - Allied health notes Allied health notes reviewed: nursing - Labs CBC & Chem 7: 08/02/18 18:06 08/02/18 08:02 Labs: Abnormal Lab Results - Last 24 Hours (Table) 08/02/18 Range/Units 18:06 RBC 4.28 L (4.30-5.90) m/uL Hgb 12.3 L (13.0-17.5) gm/dL - Imaging and Cardiology Chest x-ray: report reviewed, image reviewed Assessment and Plan Assessment: 1. Left-sided spontaneous pneumothorax, status post left video-assisted thoracoscopic surgery with mechanical pleurodesis 2. Acute hypoxic respiratory distress, increased pneumothorax, status post left thoracostomy tube placement 3. History of spontaneous pneumothorax 2 with bullous emphysema on the right side, status post VATS with blebectomy and mechanical pleurodesis on 10/30/2015 4. History of coronary artery disease with stent placement 6 years ago 5. Hypertension 6. Hyperlipidemia 7. Hypothyroidism 8. Previous tobacco dependence 9. Osteoarthritis 10. Subcutaneous emphysema Plan: 1. Continue left pleural chest tube to low continuous wall suction at -20 cm H2O for the next 24 hours. If no air leak is present we will place the chest tube to water seal and potentially remove the chest tube on 08/05/2018. 2. Encourage continued smoking cessation. 3. Wean O2 as tolerated. Encourage incentive spirometry use 10 times every hour while awake. 4. Pain control with current medication regimen. 5. GI and DVT prophylaxis. 6. Will monitor daily chest x-rays. 7. Increase activity, ambulate as tolerated around the room. May disconnect chest tube to wall suc 8. Discharge planning in place. 9. Medical management of other comorbidities per primary care service. 10. Further recommendations follow based on patient's clinical course. Time with Patient: Greater than 30
[2018-08-03] MEDS: HEPARIN SODIUM,PORCINE 5,000 UNIT/ML 1 ML VIAL SQ SCH ×2 (09:54→21:23)
[2018-08-03] MEDS: PANTOPRAZOLE 40 MG TABLET PO SCH (09:54)
[2018-08-03] MEDS: SERTRALINE 100 MG TAB PO SCH (09:54)
[2018-08-03 10:10] LABS: African American GFR (CKD) >90 (>60 ml/min/1.73 sqM); Anion Gap 9 mmol/L; Blood Urea Nitrogen 16 mg/dL (9-20); Calcium 8.6 mg/dL (8.4-10.2); Carbon Dioxide 29 mmol/L (22-30); Chloride 100 mmol/L (98-107); Glucose 146 mg/dL (74-99); Potassium 3.6 mmol/L (3.5-5.1); Sodium 138 mmol/L (137-145)
[2018-08-03 13:20] VITALS: BMI 34.9
--- NOTE | 2018-08-03 19:22 | PN ---
PROGRESS NOTE DATE OF SERVICE: 08/03/2018. DATE OF SERVICE: This 67-year-old gentleman with past medical history of multiple medical problems admitted with acute left-sided pneumothorax. Patient underwent wedge biopsy as well as pleurodesis and VATS. No chest pain. No palpitations. No fever. Chest tube still pending at this time. EXAM: Alert and oriented x3. Pulse 94, blood pressure 160, respirations 16, temperature 99.1, pulse ox 94% on room air. HEENT: Conjunctivae normal. NECK: Supple. CARDIOVASCULAR: S1 and S2 muffled. LUNGS: Breath sounds diminished at the bases. Few scattered rhonchi and crackles. ABDOMEN: Soft, nontender. LEGS: No edema, no swelling. NERVOUS SYSTEM: No focal deficits. LAB STUDIES: WBC 6.0, hemoglobin 12.5. ASSESSMENT: 1. Acute left-sided pneumothorax, status post failed Thora-Vent insertion and status post VATS and wedge resection and talc pleurodesis. 2. Hypertension. 3. Hyperlipidemia. 4. Hypothyroidism. 5. History of CAD with stent. 6. Obesity with body mass index 34. 7. History of hypothyroidism. 8. Remote history of nicotine dependence. 9. FULL CODE. RECOMMENDATIONS: Continue current management and spirometry. Continue with bronchodilators and other medications. Closely follow with Cardiothoracic Surgery and Pulmonology. Guarded prognosis. Further recommendations to follow. MMODL / IJN: [id number] /
[2018-08-03] MEDS: ATORVASTATIN 80 MG TAB PO SCH (21:23)
[2018-08-03] MEDS: HYDROcodone/APAP 5-325MG 1 EACH TAB PO PRN (21:23)
[2018-08-04] MEDS: KETOROLAC 30 MG/ML 1 ML VIAL IVP SCH ×5 (00:02→23:33)
[2018-08-04] MEDS: BENZOCAINE/MENTHOL LOZENG 1 EACH LOZENGE MUCOUS MEM PRN (00:05)
[2018-08-04] MEDS: LEVOTHYROXINE 75 MCG TAB PO SCH (05:28)
[2018-08-04] MEDS: IPRATROPIUM-ALBUTEROL 3 ML NEB IH SCH ×4 (07:41→20:29)
[2018-08-04 08:12] LABS: Basophils % (A) 0 %; Eosinophils # (A) 0.2 k/uL (0-0.7); Eosinophils % (A) 4 %; HCT 35.3 % (39.0-53.0); HGB 11.7 gm/dL (13.0-17.5); Lymphocytes # (A) 0.8 k/uL (1.0-4.8); Lymphocytes % (A) 12 %; MCH 29.8 pg (25.0-35.0); MCHC 33.2 g/dL (31.0-37.0); MCV 89.8 fL (80.0-100.0); Mean Platelet Volume 6.9; Monocytes # (A) 0.3 k/uL (0-1.0); Monocytes % (A) 5 %; Neutrophils # (A) 5.2 k/uL (1.3-7.7); Neutrophils % (A) 79 %; Platelet Count 221 k/uL (150-450); RBC 3.93 m/uL (4.30-5.90); RDW 14.4 % (11.5-15.5); WBC 6.6 k/uL (3.8-10.6)
[2018-08-04] MEDS: HYDROcodone/APAP 5-325MG 1 EACH TAB PO PRN ×2 (08:14→16:10)
[2018-08-04] MEDS: HEPARIN SODIUM,PORCINE 5,000 UNIT/ML 1 ML VIAL SQ SCH ×2 (08:14→22:11)
[2018-08-04] MEDS: SERTRALINE 100 MG TAB PO SCH (08:14)
[2018-08-04] MEDS: METOPROLOL TARTRATE 25 MG TAB PO SCH ×2 (08:14→22:11)
[2018-08-04] MEDS: PANTOPRAZOLE 40 MG TABLET PO SCH (08:14)
[2018-08-04 08:22] LABS: African American GFR (CKD) >90 (>60 ml/min/1.73 sqM); Anion Gap 9 mmol/L; Blood Urea Nitrogen 18 mg/dL (9-20); Carbon Dioxide 28 mmol/L (22-30); Chloride 103 mmol/L (98-107); Glucose 113 mg/dL (74-99); Sodium 140 mmol/L (137-145)
--- NOTE | 2018-08-04 08:28 | XR ---
EXAMINATION TYPE: XR chest 1V portable DATE OF EXAM: 08/04/2018 COMPARISON: 08/03/2018 HISTORY: Chest tube TECHNIQUE: Single frontal view of the chest is obtained. FINDINGS: Left-sided chest tube is in place. There may be a trace left-sided effusion. No appreciabl e pneumothorax. Subcutaneous emphysema along the left chest wall. Mild patchy density peripheral righ t base remains. Heart upper limits of normal in size. IMPRESSION: 1. Bilateral subsegmental atelectasis favored over infiltrate with tiny effusion. No sizable pneumoth orax. Diffuse subcutaneous emphysema persists.
--- NOTE | 2018-08-04 09:36 | P.PN ---
Subjective Progress Note Date: 08/04/18 Principal diagnosis: Left sided spontaneous pneumothorax. Previous medical history of spontaneous pneumothorax with bullous emphysema on the right status post VATS and blebectomy with mechanical pleurodesis on 10/30/2015, coronary artery disease with stent placement, hypertension, hyperlipidemia, hypothyroidism, osteoarthritis, and previous tobacco dependence POD #9 placement of Thora-vent by emergency room physicians POD #8 placement of left thoracostomy tube POD #2 left video-assisted thoracoscopic surgery with bleb resection and mechanical pleurodesis The patient is currently ambulating in the room without difficulty. Denies shortness of breath, complains of minimal left-sided chest pain. No air leak is present in his chest tube. Patient states his subcu emphysema has reduced since yesterday. Denies any new complaints. Objective - Vital Signs Vital signs: Vital Signs Temp 99.8 F H 08/04/18 07:31 Pulse 80 08/04/18 07:41 Resp 16 08/04/18 07:31 BP 127/69 08/04/18 07:31 Pulse Ox 94 L 08/04/18 07:31 Intake & Output 08/03/18 08/04/18 08/04/18 18:59 06:59 18:59 Output Total 100 350 Balance -100 -350 Weight 116.7 kg Output: Chest Tube Drainage 100 100 Chest Tube Left 100 100 Urine 250 Other: Voiding Method Urinal Toilet Toilet - Constitutional General appearance: Present: cooperative, no acute distress, obese - Respiratory Details: Lungs sounds clear but diminished bilaterally. Respirations even, nonlabored. Was on room air while getting cleaned up, oxygen saturation 84-86%. Placed back on 1 L nasal cannula with oxygen saturations 93-94%. Able to achieve 1500 mL on his incentive spirometry. Strong cough. Left pleural chest tube to continuous wall suction, 100 mL serous drainage overnight, 200 mL in the last 24 hours, no air leak present. - Cardiovascular Details: S1, S2 present. Regular rate and rhythm. Palpable peripheral pulses bilaterally. No edema present. No calf pain or tenderness noted. SCDs present. - Gastrointestinal Gastrointestinal Comment(s): Abdomen soft, nontender, nondistended. Active bowel sounds present 4 quadrants. Tolerating diet. Positive flatus, negative bowel movement. - Genitourinary Genitourinary Comment(s): Continues to void clear, yellow urine. - Integumentary Integumentary Comment(s): Skin is warm and dry with evidence of good perfusion. - Neurologic Neurologic: Present: CNII-XII intact - Musculoskeletal Musculoskeletal: Present: gait normal, strength equal bilaterally - Psychiatric Psychiatric: Present: A&O x's 3, appropriate affect, intact judgment & insight - Allied health notes Allied health notes reviewed: nursing - Labs CBC & Chem 7: 08/04/18 07:31 08/04/18 07:31 Labs: Abnormal Lab Results - Last 24 Hours (Table) 08/03/18 08/03/18 Range/Units 08:52 08:52 RBC 3.89 L (4.30-5.90) m/uL Hgb 11.5 L (13.0-17.5) gm/dL Hct 36.0 L (39.0-53.0) % Glucose 146 H (74-99) mg/dL - Imaging and Cardiology Chest x-ray: image reviewed Assessment and Plan Assessment: 1. Left-sided spontaneous pneumothorax, status post thoravent placement by the emergency room physicians, status post left-sided VATS with blebectomy and mechanical pleurodesis 2. Acute hypoxic respiratory distress, increased pneumothorax, status post left thoracostomy tube placement, resolved 3. History of spontaneous pneumothorax 2 with bullous emphysema on the right side, status post VATS with blebectomy and mechanical pleurodesis on 10/30/2015 4. History of coronary artery disease with stent placement 6 years ago 5. Hypertension 6. Hyperlipidemia 7. Hypothyroidism 8. Previous tobacco dependence 9. Subcutaneous emphysema Plan: 1. Place left thoracostomy tube to waterseal. If no air leak tomorrow and no pneumothorax, likely will discontinue chest tube. 2. Wean O2 as tolerated. Encourage incentive spirometry use 10 times every hour while awake. 3. Encourage continued smoking cessation. 4. Pain control with current medication regimen. 5. Will monitor daily x-rays. 6. Increase activity, ambulate as tolerated. 7. GI/DVT prophylaxis. 8. Medical management of other comorbidities per primary care service. 9. Will continue to monitor and make further recommendations as patient progresses. Time with Patient: Greater than 30
[2018-08-04] MEDS ORDERED: MAGNESIUM HYDROXIDE 2,400 MG/10 ML CUP PO PRN (13:43)
[2018-08-04] MEDS ORDERED: SENNOSIDES-DOCUSATE SODIUM 1 EACH TAB PO PRN (13:43)
--- NOTE | 2018-08-04 13:44 | PN ---
PROGRESS NOTE DATE OF SERVICE: 08/04/2018. This 67-year-old gentleman who was admitted with left-sided pneumothorax had failed Thora-Vent insertion and the patient had a VATS. Today the suction has been removed. The patient will be closely monitored. No chest pain. No palpitation. No fever. The most recent chest x-ray which was personally reviewed by me showed some bilateral atelectasis. PHYSICAL EXAMINATION: On exam, alert and oriented x3. The pulse is 112, blood pressure is 127/69, respiration 16, temperature 99.8, pulse ox 94% on room air. HEENT: Conjunctivae normal. NECK: No jugular venous distention. CARDIOVASCULAR: S1, S2 muffled. RESPIRATORY: Breath sounds are diminished at the bases. Bilateral scattered rhonchi and crackles. ABDOMEN: Soft, nontender. LEGS: No edema, no swelling. NERVOUS SYSTEM: No focal deficits. LABS: Labs are WBC 6.6, hemoglobin 11.7. ASSESSMENT: 1. Acute left-sided pneumothorax, status post failed Thora-Vent insertion, status post VATS and wedge resection and talc pleurodesis. 2. Hypertension. 3. Hyperlipidemia. 4. Hypothyroidism. 5. History of coronary artery disease with stent. 6. Obesity with body mass index of 34. 7. History of hypothyroidism. 8. Remote history of nicotine dependence. 9. FULL CODE. RECOMMENDATIONS AND DISCUSSION: Recommend to continue current medication, continue with symptomatic treatment. Continue incentive spirometry. Closely follow with Cardiothoracic Surgery. Biopsies are pending at this time. Otherwise, incentive spirometry. I would also recommend to continue with the bronchodilators also. Further recommendations to follow. MMODL / IJN: [id number] /
[2018-08-04] MEDS: SYMBICORT 160-4.5 MCG INHALER INHALATION SCH (20:25)
[2018-08-04] MEDS: ATORVASTATIN 80 MG TAB PO SCH (22:11)
[2018-08-05] MEDS: LEVOTHYROXINE 75 MCG TAB PO SCH (05:45)
[2018-08-05] MEDS: KETOROLAC 30 MG/ML 1 ML VIAL IVP SCH ×3 (05:45→17:01)
[2018-08-05 07:47] LABS: Basophils % (A) 0 %; Eosinophils # (A) 0.4 k/uL (0-0.7); Eosinophils % (A) 5 %; HCT 33.4 % (39.0-53.0); Lymphocytes # (A) 0.8 k/uL (1.0-4.8); Lymphocytes % (A) 12 %; MCH 29.6 pg (25.0-35.0); MCV 89.7 fL (80.0-100.0); Mean Platelet Volume 7.3; Monocytes # (A) 0.4 k/uL (0-1.0); Monocytes % (A) 5 %; Neutrophils # (A) 5.4 k/uL (1.3-7.7); Neutrophils % (A) 77 %; Platelet Count 227 k/uL (150-450); RBC 3.72 m/uL (4.30-5.90)
[2018-08-05] MEDS: IPRATROPIUM-ALBUTEROL 3 ML NEB IH SCH ×3 (07:50→16:18)
[2018-08-05] MEDS: SYMBICORT 160-4.5 MCG INHALER INHALATION SCH (07:50)
[2018-08-05 08:00] LABS: African American GFR (CKD) >90 (>60 ml/min/1.73 sqM); Anion Gap 7 mmol/L; Blood Urea Nitrogen 19 mg/dL (9-20); Carbon Dioxide 30 mmol/L (22-30); Chloride 103 mmol/L (98-107); Glucose 110 mg/dL (74-99); Potassium 4.3 mmol/L (3.5-5.1); Sodium 140 mmol/L (137-145)
--- NOTE | 2018-08-05 08:24 | P.PN ---
Subjective Progress Note Date: 08/05/18 Principal diagnosis: Left sided spontaneous pneumothorax. Previous medical history of spontaneous pneumothorax with bullous emphysema on the right status post VATS and blebectomy with mechanical pleurodesis on 10/30/2015, coronary artery disease with stent placement, hypertension, hyperlipidemia, hypothyroidism, osteoarthritis, and previous tobacco dependence POD #10 placement of Thora-vent by emergency room physicians POD #9 placement of left thoracostomy tube POD #3 left video-assisted thoracoscopic surgery with bleb resection and mechanical pleurodesis The patient is currently sitting up in a recliner on 4 S in no acute distress. Denies shortness of breath, complains of minimal left-sided chest pain. No air leak is present in his chest tube which has been to waterseal for 24 hours. Denies any new complaints. Objective - Vital Signs Vital signs: Vital Signs Temp 98.5 F 08/05/18 01:55 Pulse 92 08/05/18 08:03 Resp 18 08/05/18 07:50 BP 94/57 08/05/18 01:55 Pulse Ox 96 08/05/18 07:50 Intake & Output 08/04/18 08/05/18 08/05/18 18:59 06:59 18:59 Intake Total 916 Balance 916 Intake: Oral 916 Other: Voiding Method Toilet Toilet - Constitutional General appearance: Present: cooperative, no acute distress, obese - Respiratory Details: Lungs sounds clear but diminished bilaterally. Respirations even, nonlabored. Currently on 1 L nasal cannula with oxygen saturation 97%. Able to achieve 1500 mL on his incentive spirometry. Strong cough. Left pleural chest tube to waterseal, 100 mL serous drainage in the last 24 hours, no air leak present. - Cardiovascular Details: S1, S2 present. Regular rate and rhythm. Palpable peripheral pulses bilaterally. No edema present. No calf pain or tenderness noted. SCDs present. - Gastrointestinal Gastrointestinal Comment(s): Abdomen soft, nontender, nondistended. Active bowel sounds present 4 quadrants. Tolerating diet. Positive flatus, negative bowel movement. - Genitourinary Genitourinary Comment(s): Continues to void clear, yellow urine. - Integumentary Integumentary Comment(s): Skin is warm and dry with evidence of good perfusion. - Neurologic Neurologic: Present: CNII-XII intact - Musculoskeletal Musculoskeletal: Present: gait normal, strength equal bilaterally - Psychiatric Psychiatric: Present: A&O x's 3, appropriate affect, intact judgment & insight - Allied health notes Allied health notes reviewed: nursing - Labs CBC & Chem 7: 08/05/18 07:14 08/05/18 07:14 Labs: Abnormal Lab Results - Last 24 Hours (Table) 08/04/18 08/05/18 08/05/18 Range/Units 07:31 07:14 07:14 RBC 3.72 L (4.30-5.90) m/uL Hgb 11.0 L (13.0-17.5) gm/dL Hct 33.4 L (39.0-53.0) % Lymphocytes # 0.8 L (1.0-4.8) k/uL Glucose 113 H 110 H (74-99) mg/dL - Imaging and Cardiology Chest x-ray: image reviewed Assessment and Plan Assessment: 1. Left-sided spontaneous pneumothorax, status post thoravent placement by the emergency room physicians, status post left-sided VATS with blebectomy and mechanical pleurodesis 2. Acute hypoxic respiratory distress, increased pneumothorax, status post left thoracostomy tube placement, resolved 3. History of spontaneous pneumothorax 2 with bullous emphysema on the right side, status post VATS with blebectomy and mechanical pleurodesis on 10/30/2015 4. History of coronary artery disease with stent placement 6 years ago 5. Hypertension 6. Hyperlipidemia 7. Hypothyroidism 8. Previous tobacco dependence 9. Subcutaneous emphysema Plan: 1. Left chest tube clamped. Will unclamp in 2 hours, if no air leak will discontinue chest tube. Repeat chest x-ray 2 hours after chest tube removal, if stable may discharge to home from cardiothoracic standpoint when okay with other consultants. 2. Wean O2 as tolerated. Encourage incentive spirometry use 10 times every hour while awake. 3. Encourage continued smoking cessation. 4. Pain control with current medication regimen. 5. Will monitor daily x-rays. 6. Increase activity, ambulate as tolerated. 7. GI/DVT prophylaxis. 8. Medical management of other comorbidities per primary care service. 9. Will continue to monitor and make further recommendations as patient progresses. Time with Patient: Greater than 30
--- NOTE | 2018-08-05 09:20 | XR ---
EXAMINATION TYPE: XR chest 2V DATE OF EXAM: 08/05/2018 COMPARISON: Prior chest x-ray 08/04/2018 HISTORY: Pneumothorax, chest tube TECHNIQUE: Frontal and lateral views of the chest are obtained. FINDINGS: Findings similar to prior exam. There is extensive subcutaneous emphysema. Left-sided ches t tube is in place. Apical cap is present. Small left-sided pneumothorax is present. No other signifi cant interval change IMPRESSION: No significant interval change.
[2018-08-05] MEDS: HEPARIN SODIUM,PORCINE 5,000 UNIT/ML 1 ML VIAL SQ SCH (10:07)
[2018-08-05] MEDS: METOPROLOL TARTRATE 25 MG TAB PO SCH (10:07)
[2018-08-05] MEDS: PANTOPRAZOLE 40 MG TABLET PO SCH (10:07)
[2018-08-05] MEDS: SERTRALINE 100 MG TAB PO SCH (10:07)
--- NOTE | 2018-08-05 12:48 | XR ---
EXAMINATION TYPE: XR chest 2V DATE OF EXAM: 08/05/2018 COMPARISON: Prior chest x-ray same dated earlier time HISTORY: Chest tube removal TECHNIQUE: Frontal and lateral views of the chest are obtained. FINDINGS: There is been interval removal of the left-sided chest tube. No evident pneumothorax. Exte nsive subcutaneous emphysema again seen. No significant interval change. IMPRESSION: No evident complication status post chest tube removal.
[2018-08-05 16:28] VITALS: BP 114/74; RESP 15; TEMP 98.6
[2018-08-05 19:14] VITALS: PULSE 65
--- NOTE | 2018-08-06 01:50 | DS ---
DISCHARGE SUMMARY DATE OF SERVICE: 08/05/2018. FINAL DIAGNOSES: 1. Acute spontaneous left pneumothorax, status post left VATS with bleb resection and mechanical pleurodesis by Dr. Pollock. 2. Hypertension. 3. Hyperlipidemia. 4. Hypothyroidism. 5. History of coronary artery disease/stent. 6. Obesity with body mass index 34. 7. History of hypothyroidism. 8. Remote history of nicotine dependence. 9. FULL CODE. DISCHARGE DISPOSITION: The patient will be discharged in stable condition with guarded prognosis. HISTORY OF PRESENT ILLNESS: This 67-year-old gentleman with a past medical history of multiple medical problems, being followed by Dr. Pinto in the outpatient setting was admitted with spontaneous left-sided pneumothorax. The patient failed ThoraVent and subsequently patient had chest tube drainage and VATS and surgery. Pleurodesis as mentioned earlier. The patient improved significantly and cardiovascular recommended the patient to be discharged and patient also seen by On exam, vitals are stable. Cardiovascular S1, S2. Respiration: A few scattered rhonchi. ABDOMEN: Soft. NERVOUS SYSTEM: No focal deficits. Labs are reviewed. Hemoglobin 11, stable. DISCHARGE ADVICE AND MEDICATIONS: 1. Diet is cardiac diet. 2. Activity limited until followup. 3. Follow up with Dr. Pinto in 2-3 days. 4. Follow up with Cardiology as recommended. DISCHARGE MEDICATIONS: 1. Lipitor 80 mg q.h.s. 2. Lopressor 25 mg p.o. b.i.d. 3. Synthroid 150 mcg p.o. daily. 4. Zoloft 100 mg p.o. daily. 5. ProAir 2 puffs q.6h. Incentive spirometry as mentioned. MMODL / IJN: [id number] / MTDD
== END 2018-08-05 18:15 | disposition home or self-care (01) | DRG 163 ==
LOC: EC 23:53 → 4SSUR 07-27 02:54 → 2SICU 07-27 20:03 → 4MS4W 07-28 14:06 → 4SSUR 07-28 18:18
PROVIDERS: ADMIT Family Medicine; ATTEND Family Medicine
PROC: 0W9B30Z Drainage of Left Pleural Cavity with Drainage Device, Percutaneous Approach (ICD-10-PCS; principal; 2018-07-27)
PROC: 0W9B30Z Drainage of Left Pleural Cavity with Drainage Device, Percutaneous Approach (ICD-10-PCS; 2018-07-27)
PROC: 0BBP4ZZ Excision of Left Pleura, Percutaneous Endoscopic Approach (ICD-10-PCS; 2018-08-02)
PROC: 0BBL4ZZ Excision of Left Lung, Percutaneous Endoscopic Approach (ICD-10-PCS; 2018-08-02)
DX: J93.83 Other pneumothorax (principal); J96.01 Acute respiratory failure with hypoxia; J98.11 Atelectasis; T79.7XXA Traumatic subcutaneous emphysema, initial encounter; E03.9 Hypothyroidism, unspecified; E66.9 Obesity, unspecified; Z68.34 Body mass index [BMI] 34.0-34.9, adult; E78.5 Hyperlipidemia, unspecified; I10 Essential (primary) hypertension; I25.10 Atherosclerotic heart disease of native coronary artery without angina pectoris; J93.82 Other air leak; M19.90 Unspecified osteoarthritis, unspecified site; Z79.890 Hormone replacement therapy; Z79.899 Other long term (current) drug therapy; Z80.0 Family history of malignant neoplasm of digestive organs; Z87.09 Personal history of other diseases of the respiratory system; Z87.891 Personal history of nicotine dependence; Z95.5 Presence of coronary angioplasty implant and graft; Z91.030 Bee allergy status
CPT/HCPCS: 32551; 36415; 71045; 71046; 71250; 80048; 80053; 83880; 84484; 85025; 85379; 85610; 85730; 88307; 93005; 94640; 94760; 96374; 96376; 99285

== ENCOUNTER → 2018-12-22 | Day surgery (SDC) | payer MEDICARE ==
[~2018-12-22] MED LIST: HYDROmorphone 0.5 MG/0.5 ML SYRINGE IVP PRN; LACTATED RINGERS 1,000 ML IV SCH; LIDOCAINE 1% INJ 10MG/ML (20 ML MDV) ONE; ONDANSETRON 4 MG/2 ML VIAL IVP PRN; PROPOFOL 10 MG/ML 20 ML VIAL IV ONE
[2018-12-22 08:11] VITALS: RESP 16; TEMP 98.9
--- NOTE | 2018-12-22 09:07 | P.GSHP ---
History of Present Illness H&P Date: 12/22/18 Chief Complaint: GERD This is a 68-year-old male who presents today for EGD. He's had issues with GERD. Past Medical History Past Medical History: Coronary Artery Disease (CAD), Cancer, Hyperlipidemia, Hypertension, Osteoarthritis (OA), Thyroid Disorder Additional Past Medical History / Comment(s): 02-19-15 LEFT PNEUMOTHORAX. RIGHT PNEUMOTHORAX. other past medicl hx includes: occ tinnitus, palpitations, fx rt hand(casted) skin ca., hypothyroid History of Any Multi-Drug Resistant Organisms: None Reported Past Surgical History: Back Surgery, Heart Catheterization With Stent Additional Past Surgical History / Comment(s): LEFT hemorroidectomy, back sx d/t bulgin disc, rt hand sx to repair severed tendon, colonoscopy x2, skin ca on nose removed. Past Anesthesia/Blood Transfusion Reactions: No Reported Reaction Date of Last Stent Placement:: unk Past Psychological History: No Psychological Hx Reported Smoking Status: Former smoker Past Alcohol Use History: None Reported Additional Past Alcohol Use History / Comment(s): quit smoking 15 years ago Past Drug Use History: None Reported - Past Family History Mother Family Medical History: Dementia Father Family Medical History: Cancer, Liver Disease Additional Family Medical History / Comment(s): liver cancer Medications and Allergies Home Medications Medication Instructions Recorded Confirmed Type Atorvastatin [Lipitor] 80 mg PO HS 02/19/15 12/22/18 History Sertraline [Zoloft] 100 mg PO HS 02/19/15 12/22/18 History Levothyroxine Sodium [Synthroid] 150 mcg PO QAM 07/27/18 12/22/18 History Metoprolol Tartrate [Lopressor] 25 mg PO BID 07/27/18 12/22/18 History Allergies Allergy/AdvReac Type Severity Reaction Status Date / Time venom-honey bee Allergy Swelling Verified 12/22/18 08:18 [bee venom (honey bee)] Surgical - Exam Vital Signs Temp Pulse Resp BP Pulse Ox 98.9 F 89 16 148/77 94 L 12/22/18 08:09 12/22/18 08:09 12/22/18 08:09 12/22/18 08:09 12/22/18 08:09 - General well developed, well nourished, no distress - Eyes PERRL - ENT normal pinna - Neck no masses - Respiratory normal expansion - Cardiovascular Rhythm: regular - Abdomen Abdomen: soft, non tender Assessment and Plan Assessment: GERD. We'll perform EGD.
--- NOTE | 2018-12-22 09:18 | P.OP ---
Date of Procedure: 12/22/18 Preoperative Diagnosis: GERD Postoperative Diagnosis: Antral gastritis Possible mild duodenitis Mild esophagitis Procedure(s) Performed: EGD Anesthesia: MAC Surgeon: Vidal Wynne Pathology: other (Duodenum, antrum, esophagus) Condition: stable Disposition: PACU Description of Procedure: Patient's placed on the endoscopy table in the lateral position. He received IV sedation. The gastroscope placed oropharynx passed in the esophagus into the stomach. Scope was then placed through the pylorus. The first and second portion of the duodenum appeared minimally inflamed. A biopsies performed. Scope was then brought back the antrum this. Mildly inflamed. A biopsies performed. The scope was then retroflexed and the remainder stomach appeared normal. There is no significant hiatal hernia. The GE junction was at 40 cm. The distal esophagusAppeared minimal inflamed and a biopsies performed. The proximal esophagus. Normal. Scope was withdrawn for patient.
[2018-12-22 09:43] VITALS: BP 106/72; PULSE 75
--- NOTE | 2018-12-22 12:12 | NM ---
EXAMINATION TYPE: NM hepatobiliary w CCK DATE OF EXAM: 12/22/2018 COMPARISON: NONE HISTORY: Indigestion TECHNIQUE: After the intravenous administration of 5.1 mCi Tc 99m Mebrofenin hepatobiliary scintigrap hy is performed. Immediate images post injection. FINDINGS: There is satisfactory initial accumulation of tracer by the liver. The gallbladder is visualized wit hin vaguely at minute 12 but definitively at minute 46. The small bowel activity is noted within 16 minutes. At one hour CCK was administered, patient was injected with 2.3 mcg of Kinevac, and gallbla dder ejection fraction is calculated at 26 %, abnormal. Therefore there is no scintigraphic evidence of cystic or common bile duct obstruction to suggest acute cholecystitis or gallbladder dyskinesia. IMPRESSION: Biliary dyskinesia. Abnormally low biliary ejection fraction of 26%. No scintigraphic tom dence of acute or chronic cholecystitis.
== END ==
LOC: ORWHC2ENDO 07:51
PROVIDERS: ATTEND Surgery
DX: K29.50 Unspecified chronic gastritis without bleeding (principal); K21.0 Gastro-esophageal reflux disease with esophagitis; K82.8 Other specified diseases of gallbladder; I25.10 Atherosclerotic heart disease of native coronary artery without angina pectoris; I10 Essential (primary) hypertension; E78.5 Hyperlipidemia, unspecified; M19.90 Unspecified osteoarthritis, unspecified site; E03.9 Hypothyroidism, unspecified; Z95.5 Presence of coronary angioplasty implant and graft; Z85.828 Personal history of other malignant neoplasm of skin; H93.19 Tinnitus, unspecified ear; R00.2 Palpitations; Z87.891 Personal history of nicotine dependence; Z82.0 Family history of epilepsy and other diseases of the nervous system; Z80.0 Family history of malignant neoplasm of digestive organs; Z79.890 Hormone replacement therapy; Z79.899 Other long term (current) drug therapy; Z91.030 Bee allergy status
CPT/HCPCS: 88305; 78227; 43239; A9537; J2805; J2001; J2704

== ENCOUNTER 2019-01-09 06:23 | Day surgery (SDC) | payer MEDICARE ==
[2019-01-05 10:40] VITALS: BMI 34.5
[~2019-01-09 06:23] MED LIST changes: +DEXAMETHASONE SOD PHOSPHATE 10 MG/ML 1 ML VIAL IV ONE; +HEPARIN SODIUM,PORCINE 5,000 UNIT/ML 1 ML VIAL SQ ONE; -LIDOCAINE 1% INJ 10MG/ML (20 ML MDV) ONE; +MIDAZOLAM 2 MG/2 ML VIAL IV PRN; +ONDANSETRON 4 MG/2 ML VIAL IVP ONE; -ONDANSETRON 4 MG/2 ML VIAL IVP PRN; -PROPOFOL 10 MG/ML 20 ML VIAL IV ONE
[2019-01-09 06:42] VITALS: TEMP 97.8
[2019-01-09] MEDS ORDERED: METOPROLOL TARTRATE 25 MG TAB PO STA (06:47)
[2019-01-09] MEDS ORDERED: LACTATED RINGERS 1,000 ML IV ONE ×3 (06:53→09:45)
[2019-01-09] MEDS ORDERED: PROPOFOL 10 MG/ML 20 ML VIAL IV ONE (07:53)
[2019-01-09] MEDS ORDERED: KETOROLAC 30 MG/ML 1 ML VIAL ONE (07:53)
[2019-01-09] MEDS ORDERED: MIDAZOLAM 2 MG/2 ML VIAL ONE (07:53)
[2019-01-09] MEDS ORDERED: GLYCOPYRROLATE 0.2 MG/ML 2 ML VIAL ONE (07:53)
[2019-01-09] MEDS ORDERED: LIDOCAINE 1% INJ 10MG/ML (20 ML MDV) ONE (07:53)
[2019-01-09] MEDS ORDERED: fentaNYL (PF) 50 MCG/ML 2 ML AMP ONE (07:53)
[2019-01-09] MEDS ORDERED: NEOSTIGMINE 1 MG/ML 10 ML VIAL ONE (07:53)
[2019-01-09] MEDS ORDERED: HYDROmorphone (PF) 1 MG/ML ONE (07:53)
[2019-01-09] MEDS ORDERED: ROCURONIUM BROMIDE 10 MG/ML 10 ML VIAL IV ONE (07:53)
--- NOTE | 2019-01-09 07:59 | P.GSHP ---
History of Present Illness H&P Date: 01/09/19 Chief Complaint: Right upper quadrant pain This a 68-year-old male with compensatory quadrant pain. His recent HIDA scan shows abnormal ejection fraction consistent with chronic cholecystitis. Patient presents today for laparoscopic cholecystectomy. Past Medical History Past Medical History: Coronary Artery Disease (CAD), Cancer, Hyperlipidemia, Hypertension, Osteoarthritis (OA), Thyroid Disorder Additional Past Medical History / Comment(s): HX BILATERAL PNEUMOTHORAX, occassional tinnitus, palpitations, fractured right hand(casted), skin cancer, hypothyroidism. History of Any Multi-Drug Resistant Organisms: None Reported Past Surgical History: Back Surgery, Heart Catheterization With Stent Additional Past Surgical History / Comment(s): Hemorroidectomy, back surgery d/t bulging disc, right hand surgery to repair severed tendon, colonoscopy X3, skin cancer on nose removed. Past Anesthesia/Blood Transfusion Reactions: No Reported Reaction Date of Last Stent Placement:: unk Past Psychological History: No Psychological Hx Reported Smoking Status: Former smoker Past Alcohol Use History: None Reported Additional Past Alcohol Use History / Comment(s): Quit smoking 18 years ago. Past Drug Use History: None Reported - Past Family History Mother Family Medical History: Dementia Father Family Medical History: Cancer, Liver Disease Additional Family Medical History / Comment(s): Liver cancer. Medications and Allergies Home Medications Medication Instructions Recorded Confirmed Type Atorvastatin [Lipitor] 80 mg PO HS 02/19/15 01/05/19 History Sertraline [Zoloft] 100 mg PO HS 02/19/15 01/05/19 History Levothyroxine Sodium [Synthroid] 150 mcg PO QAM 07/27/18 01/05/19 History Metoprolol Tartrate [Lopressor] 25 mg PO BID 07/27/18 01/05/19 History Allergies Allergy/AdvReac Type Severity Reaction Status Date / Time venom-honey bee Allergy Swelling Verified 01/05/19 10:28 [bee venom (honey bee)] Surgical - Exam Vital Signs Temp Pulse Resp BP Pulse Ox 97.8 F 92 18 130/77 97 01/09/19 06:40 01/09/19 06:40 01/09/19 06:40 01/09/19 06:40 01/09/19 06:40 - General well developed, well nourished, no distress - Eyes PERRL - ENT normal pinna - Neck no masses - Respiratory normal expansion - Cardiovascular Rhythm: regular - Abdomen Abdomen: soft, non tender Assessment and Plan Assessment: Right quadrant pain Chronic cholecystitis We'll perform laparoscopic cholecystectomy.
[2019-01-09] MEDS ORDERED: BUPIVACAINE (PF) 0.5% 30 ML VIAL SQ ONE ×2 (08:03→08:23)
[2019-01-09 09:12] VITALS: RESP 16
--- NOTE | 2019-01-09 09:14 | P.OP ---
Date of Procedure: 01/09/19 Preoperative Diagnosis: Cholecystitis Postoperative Diagnosis: Cholecystitis Procedure(s) Performed: Laparoscopic cholecystectomy Anesthesia: HEMANT Surgeon: Vidal Wynne Estimated Blood Loss (ml): 5 Pathology: other (Gallbladder) Condition: stable Disposition: PACU Description of Procedure: The patient was placed on the operating table. The patient received a general endotracheal tube anesthesia. The patients abdomen was prepped and draped in the usual sterile fashion. Through an infraumbilical stab incision, the fascia of the anterior abdominal wall was grasped with a pair of Kochers and then the Veress needle was placed in the peritoneal cavity. Position of the Veress needle was confirmed with positive drop test. The abdomen was then insufflated. After adequate insufflation, the 10 mm trocar was placed in the peritoneal cavity. Following this the laparoscope was placed in the peritoneal cavity. The patient was placed in the head-up, right side up position and then a 5 mm trocar was placed in the right lateral and right subcostal position under direct visualization. A 8 mm trocar was placed in the epigastric position. The gallbladder was grasped in the fundus and infundibulum. Traction on the gallbladder was placed in the lateral and the cephalad positions. The triangle of Calot was visualized.. The cystic duct was bluntly dissected until the union of the cystic duct and common bile duct was seen. A critical view of safety was achieved. The cystic duct was then divided and sealed with the Harmonic scissors. A PDS Endoloop was then placed throughout the cystic duct stump. The cystic artery divided and sealed with the Harmonic scissors. The gallbladder was then removed from the liver bed using Harmonic scissors. The gallbladder was then extracted through the epigastric port site. Operative field was checked for any bleeding spots and Harmonic scissors was used to coagulate the liver bed. The abdomen was irrigated. The trocars were removed. The skin was closed using interrupted 3-0 Vicryl suture. Dermabond dressing were applied. The patient tolerated the procedure well.
[2019-01-09 09:39] LABS: Glucose,Whole Blood 154 mg/dL (75-99)
[2019-01-09 12:34] VITALS: BP 115/73; PULSE 78
== END 2019-01-09 12:30 | disposition home or self-care (01) ==
LOC: OR 06:23
PROVIDERS: ATTEND Surgery
DX: K81.1 Chronic cholecystitis (principal); K82.8 Other specified diseases of gallbladder; I25.10 Atherosclerotic heart disease of native coronary artery without angina pectoris; I10 Essential (primary) hypertension; E78.5 Hyperlipidemia, unspecified; E03.9 Hypothyroidism, unspecified; M19.90 Unspecified osteoarthritis, unspecified site; Z87.891 Personal history of nicotine dependence; Z91.030 Bee allergy status; Z95.5 Presence of coronary angioplasty implant and graft; Z79.890 Hormone replacement therapy; Z79.899 Other long term (current) drug therapy; Z98.890 Other specified postprocedural states; Z85.828 Personal history of other malignant neoplasm of skin; Z81.8 Family history of other mental and behavioral disorders; Z80.8 Family history of malignant neoplasm of other organs or systems
CPT/HCPCS: 88304; 47562; J2250; J1644; J1100; J2710; J0690; J2405; J2001; J3010; J1885; J1170; J2704

== ENCOUNTER 2019-04-25 06:38 | Day surgery (SDC) | payer MEDICARE ==
[2019-04-21 11:01] VITALS: BMI 33.9
[~2019-04-25 06:38] MED LIST changes: -HYDROmorphone 0.5 MG/0.5 ML SYRINGE IVP PRN; -LACTATED RINGERS 1,000 ML IV SCH; +LIDOCAINE 1% (10MG/ML) FOR IV START INTRADERMA PRN; -MIDAZOLAM 2 MG/2 ML VIAL IV PRN
[2019-04-25] MEDS: LACTATED RINGERS 1,000 ML IV SCH ×2 (07:14→07:52)
[2019-04-25] MEDS: MIDAZOLAM 2 MG/2 ML VIAL IV PRN ×2 (07:29→07:33)
[2019-04-25] MEDS: fentaNYL (PF) 50 MCG/ML 2 ML AMP IV PRN ×2 (07:29→07:33)
[2019-04-25 07:38] LABS: HGB 13.5 gm/dL (13.0-17.5); MCH 29.6 pg (25.0-35.0); MCHC 33.6 g/dL (31.0-37.0); MCV 87.9 fL (80.0-100.0); Platelet Count 185 k/uL (150-450); RBC 4.56 m/uL (4.30-5.90); RDW 14.2 % (11.5-15.5); WBC 5.3 k/uL (3.8-10.6)
[2019-04-25] MEDS ORDERED: SUCCINYLCHOLINE CHLORIDE 100 MG/5 ML SYR IV ONE (07:49)
[2019-04-25] MEDS ORDERED: MIDAZOLAM 2 MG/2 ML VIAL ONE (07:49)
[2019-04-25] MEDS ORDERED: KETOROLAC 30 MG/ML 1 ML VIAL ONE (07:49)
[2019-04-25] MEDS ORDERED: KETAMINE 10 MG/ML 20 ML VIAL ONE (07:49)
[2019-04-25] MEDS ORDERED: PHENYLEPHRINE-0.9% NACL SYG 1 MG/10 ML SYRINGE ONE (07:49)
[2019-04-25] MEDS ORDERED: ROCURONIUM BROMIDE 10 MG/ML 5 ML VIAL IV ONE (07:49)
[2019-04-25] MEDS ORDERED: NEOSTIGMINE 1 MG/ML 10 ML VIAL ONE (07:49)
[2019-04-25] MEDS ORDERED: LIDOCAINE 1% INJ 10MG/ML (20 ML MDV) ONE (07:49)
[2019-04-25] MEDS ORDERED: fentaNYL (PF) 50 MCG/ML 2 ML AMP ONE (07:49)
[2019-04-25] MEDS ORDERED: DEXAMETHASONE SOD PHOS (MDV) 100 MG/10 ML VIAL ONE (07:49)
[2019-04-25] MEDS ORDERED: PROPOFOL 10 MG/ML 20 ML VIAL IV ONE (07:49)
[2019-04-25] MEDS ORDERED: GLYCOPYRROLATE 0.2 MG/ML 2 ML VIAL ONE (07:49)
[2019-04-25] MEDS ORDERED: BUPIVACAINE (PF) 0.25% 30 ML VIAL SQ ONE (08:16)
[2019-04-25] MEDS ORDERED: LACTATED RINGERS 1,000 ML IV ONE (08:48)
[2019-04-25 09:14] VITALS: TEMP 97.1
--- NOTE | 2019-04-25 09:21 | P.OP ---
Date of Procedure: 04/25/19 Preoperative Diagnosis: Incarcerated umbilical hernia Postoperative Diagnosis: Incarcerated umbilical hernia Procedure(s) Performed: Laparoscopic robotic-assisted repair of incarcerated umbilical hernia Anesthesia: ZEUSA Surgeon: Vidal Wynne Description of Procedure: Date of Procedure: 04/25/19 Preoperative Diagnosis: Incarcerated umbilical hernia Postoperative Diagnosis: Incarcerated umbilical hernia Procedure(s) Performed: Laparoscopic robotic system repair of incarcerated we'll hernia Partial omentectomy Anesthesia: ZEUSA Surgeon: Vidal Wynne Estimated Blood Loss (ml): 5 Pathology: other (Omentum/hernia sac) Condition: stable Disposition: PACU Description of Procedure: RobThe patient was placed on the operating table in the supine position. He received general anesthesia. His abdomen was prepped and draped usual fashion. Using a 5 mm optical trocar under direct visualization the peritoneal cavity was entered in the left upper quadrant. The abdomen was then insufflated. The laparoscope was placed back into the perineal cavity. Next a 8 mm robotic trocar was placed in the left lower quadrant and a 12 mm robotic trocar was placed in the left lateral position. The original 5 mm trocar was exchanged for a 8 mm robotic trocar. The patient's placed in the left side up position. And the patient was undocked the robot. The umbilical hernia was visualized. Using hook cautery the peritoneum over the umbilical hernia was excised. Incarcerated omentum and sac were transected with the hook cautery and then sent to pathology. The fascial opening was repaired using 0V LOC suture. Next a piece of 11 cm round ventral light ST mesh was placed into the. Cavity and secured with 2 OV lock suture. The patient was undocked the robot. The needles were retrieved. The fascia of the 12 mm trocar site was closed with 0 Ethibond suture. Skin was closed interrupted 3-0 Monocryl suture. Dermabond dressings was applied. Patient top procedure well and was sent to recovery room stable condition. Additional CC's: Jagdish Pinto
[2019-04-25] MEDS: HYDROmorphone 0.5 MG/0.5 ML SYRINGE IVP PRN ×2 (09:22→09:39)
--- NOTE | 2019-04-25 09:23 | P.GSHP ---
History of Present Illness H&P Date: 04/25/19 Chief Complaint: Incarcerated umbilical hernia This is a 68-year-old male who presents today for laparoscopic robotic Impression buckle hernia. Patient will be tender mass is about this. Past Medical History Past Medical History: Coronary Artery Disease (CAD), Cancer, Hyperlipidemia, Hypertension, Osteoarthritis (OA), Thyroid Disorder Additional Past Medical History / Comment(s): HX BILATERAL PNEUMOTHORAX, occassional tinnitus, palpitations, hx. fractured right hand(casted), skin cancer, hypothyroidism. States has hx. of Blebs in his lung tissue . Basal cell on nose that was removed. History of Any Multi-Drug Resistant Organisms: None Reported Past Surgical History: Back Surgery, Heart Catheterization With Stent Additional Past Surgical History / Comment(s): Hemorroidectomy, back surgery d/t bulging disc, right hand surgery to repair severed tendon, colonoscopy X3, skin cancer on nose removed. Past Anesthesia/Blood Transfusion Reactions: No Reported Reaction Date of Last Stent Placement:: 2008 Smoking Status: Former smoker - Past Family History Mother Family Medical History: Cancer, Dementia Additional Family Medical History / Comment(s): Lung Father Family Medical History: Cancer, Liver Disease Additional Family Medical History / Comment(s): Liver cancer. Medications and Allergies Home Medications Medication Instructions Recorded Confirmed Type Atorvastatin [Lipitor] 80 mg PO HS 02/19/15 04/25/19 History Sertraline [Zoloft] 100 mg PO HS 02/19/15 04/25/19 History Levothyroxine Sodium [Synthroid] 150 mcg PO QAM 07/27/18 04/25/19 History Metoprolol Tartrate [Lopressor] 25 mg PO BID 07/27/18 04/25/19 History Allergies Allergy/AdvReac Type Severity Reaction Status Date / Time venom-honey bee Allergy Swelling Verified 04/25/19 06:52 [bee venom (honey bee)] Surgical - Exam Vital Signs Pulse Resp BP Pulse Ox 90 20 161/91 97 04/25/19 07:01 04/25/19 07:01 04/25/19 07:01 04/25/19 07:01 - General well developed, well nourished, no distress - Neck no masses - Respiratory normal expansion - Abdomen Abdomen: soft Hernia: umbilical Results - Labs 04/25/19 07:14 Assessment and Plan Assessment: Incarcerated umbilical hernia. We'll perform laparoscopic robotic-assisted repair.
--- NOTE | 2019-04-25 09:31 | P.ANPRN ---
Procedure Note - Anesthesia - Nerve Block Performed Bilateral Rectus Abdominis Single Time Out Performed: Yes ([id number]) Date of Procedure: 04/25/19 Procedure Start Time: 07:28 Procedure Stop Time: 07:34 Location of Patient: PreOp Indication: Acute Post-Operative Pain, Requested by Surgeon Specifically requested for management of pain by DrAnthony: Vidal Wynne Sedation Type: Sedate with meaningful contact maintained Preparation: Sterile Prep Position: Supine Catheter: None Needle Types: Pajunk Needle Gauge: 21 Ultrasound used to visualize needle placement: Yes Ultrasound used to observe medication spread: Yes Injectate: 0.5% Ropivacaine (see comment for volume) (15cc bilaterally) Blood Aspirated: No Pain Paresthesia on Injection Noted: No Resistance on Injection: Normal Image Stored and Saved: Yes Events: Uneventful and Well Tolerated
[2019-04-25 09:40] VITALS: RESP 16
[2019-04-25] MEDS ORDERED: HYDROcodone/APAP 5-325MG 1 EACH TAB PO ONE (10:41)
[2019-04-25 11:17] VITALS: BP 100/57; PULSE 69
== END 2019-04-25 12:53 | disposition home or self-care (01) ==
LOC: OR 06:38
PROVIDERS: ATTEND Surgery
DX: K42.0 Umbilical hernia with obstruction, without gangrene (principal); I25.10 Atherosclerotic heart disease of native coronary artery without angina pectoris; Z85.828 Personal history of other malignant neoplasm of skin; E78.5 Hyperlipidemia, unspecified; I10 Essential (primary) hypertension; M19.90 Unspecified osteoarthritis, unspecified site; E03.9 Hypothyroidism, unspecified; Z87.09 Personal history of other diseases of the respiratory system; Z86.69 Personal history of other diseases of the nervous system and sense organs; Z87.81 Personal history of (healed) traumatic fracture; Z98.890 Other specified postprocedural states; Z95.5 Presence of coronary angioplasty implant and graft; Z87.39 Personal history of other diseases of the musculoskeletal system and connective tissue; Z87.891 Personal history of nicotine dependence; Z79.899 Other long term (current) drug therapy; Z79.890 Hormone replacement therapy; Z91.030 Bee allergy status; Z90.2 Acquired absence of lung [part of]; Z80.1 Family history of malignant neoplasm of trachea, bronchus and lung; Z81.8 Family history of other mental and behavioral disorders; Z80.0 Family history of malignant neoplasm of digestive organs; Z83.79 Family history of other diseases of the digestive system
CPT/HCPCS: 64488; 85027; 88302; 49653; C1781; J2250; J1644; J1100 ×2; J2710; J0690; J2405; J2001; J3010; J1885; J2370; J0330; J2704; J1170

== ENCOUNTER → 2019-11-02 | Outpatient (CLI) | payer MEDICARE ==
[2019-11-02 15:25] LABS: Potassium 4.2 mmol/L (3.5-5.1)
[2019-11-02 15:38] LABS: HCT 39.5 % (39.0-53.0); HGB 13.2 gm/dL (13.0-17.5); MCH 29.1 pg (25.0-35.0); MCHC 33.3 g/dL (31.0-37.0); MCV 87.3 fL (80.0-100.0); Mean Platelet Volume 7.1; Platelet Count 168 k/uL (150-450); RBC 4.53 m/uL (4.30-5.90); RDW 14.8 % (11.5-15.5); WBC 4.8 k/uL (3.8-10.6)
== END | disposition home or self-care (01) ==
LOC: LABPAT 14:30
PROVIDERS: ATTEND Internal Medicine Cardiovascular Disease
DX: Z01.818 Encounter for other preprocedural examination (principal); I25.10 Atherosclerotic heart disease of native coronary artery without angina pectoris
CPT/HCPCS: 36415; 80051; 82565; 84520; 85027

== ENCOUNTER → 2019-11-03 | Day surgery (SDC) | payer MEDICARE ==
[2019-11-02 08:44] VITALS: BMI 36.6
[~2019-11-03] MED LIST changes: +ALPRAZolam 0.25 MG TAB PO PRN; +ALPRAZolam 0.5 MG TAB PO PRN; +ASPIRIN 325 MG TAB PO ONE; -DEXAMETHASONE SOD PHOSPHATE 10 MG/ML 1 ML VIAL IV ONE; -HEPARIN SODIUM,PORCINE 5,000 UNIT/ML 1 ML VIAL SQ ONE; +IOPAMIDOL-370 125ML BTL INJ ONE; -LIDOCAINE 1% (10MG/ML) FOR IV START INTRADERMA PRN; +LIDOCAINE 1% INJ 10MG/ML (20 ML MDV) ONE; +LIDOCAINE 1% INJ 10MG/ML (20 ML MDV) SQ ONE; +MIDAZOLAM 2 MG/2 ML VIAL IV ONE; +NITROGLYCERIN SL TABS 0.4 MG TAB SUBLINGUAL PRN; -ONDANSETRON 4 MG/2 ML VIAL IVP ONE; +RX INFO: IV CONTRAST WAS GIVEN 1 EACH MISC MISCELLANE PRN; +SODIUM CHLORIDE 0.9% 1,000 ML IV SCH; +SODIUM CHLORIDE 0.9% 1,000 ML in EMPTY BAG 1 BAG IV ONE; +fentaNYL (PF) 50 MCG/ML 2 ML AMP IV ONE; +fentaNYL (PF) 50 MCG/ML 2 ML AMP ONE
[2019-11-03 07:03] VITALS: RESP 18; TEMP 98.8
[2019-11-03 07:47] LABS: Basophils % (A) 0 %; Eosinophils # (A) 0.2 k/uL (0-0.7); Eosinophils % (A) 3 %; HGB 13.7 gm/dL (13.0-17.5); Lymphocytes # (A) 1.7 k/uL (1.0-4.8); Lymphocytes % (A) 31 %; MCH 28.9 pg (25.0-35.0); MCHC 32.7 g/dL (31.0-37.0); MCV 88.6 fL (80.0-100.0); Mean Platelet Volume 7.3; Monocytes # (A) 0.4 k/uL (0-1.0); Monocytes % (A) 6 %; Neutrophils # (A) 3.3 k/uL (1.3-7.7); Neutrophils % (A) 58 %; Platelet Count 198 k/uL (150-450); RBC 4.74 m/uL (4.30-5.90); RDW 15.2 % (11.5-15.5); WBC 5.6 k/uL (3.8-10.6)
[2019-11-03 07:55] LABS: Calcium 9.6 mg/dL (8.4-10.2); Potassium 4.3 mmol/L (3.5-5.1)
--- NOTE | 2019-11-03 11:30 | LTR ---
DATE OF SERVICE: 11/03/2019 Dear Jagdish: I performed cardiac catheterization on Buddy Baez. A detailed cardiac catheterization is enclosed for your records. In brief, the cardiac catheterization shows a patent stent within the LAD and mild to moderate nonobstructive disease involving circ and right coronary artery. The lesion within the circumflex coronary artery looks better now than it did in 2013. The patient will continue with medical therapy and his symptoms are probably noncardiac in origin. Thank you for letting us participate in the care of this pleasant gentleman. Sincerely, MMNOLVIAL / TERIN: [id number] /
--- NOTE | 2019-11-03 11:30 | CC ---
CARDIAC CATHETERIZATION REPORT INDICATION: Unstable angina. PROCEDURE NOTE: After obtaining informed consent, left heart catheterization and coronary angiogram were performed via the right femoral artery using standard Jovon catheters. Patient tolerated the procedure well without any obvious immediate complications. A femoral angiogram was performed and Angio-Seal was deployed for hemostasis. Patient received moderate conscious sedation. Total sedation time was 15 minutes. FINDINGS: HEMODYNAMICS: Left ventricular end-diastolic pressure is 18 mm. There is no significant gradient across the aortic valve. LEFT VENTRICULOGRAM: Left ventriculogram is not performed. ANGIOGRAPHIC DATA: LEFT MAIN CORONARY ARTERY: Left main coronary artery is a normal-sized vessel and is free of stenosis. Divides into left anterior descending coronary artery and circumflex coronary artery. LEFT ANTERIOR DESCENDING CORONARY ARTERY: LAD was previously stented in the in the mid portion and the stent appears patent. CIRCUMFLEX CORONARY ARTERY: Circumflex coronary artery shows a 40% stenosis in its proximal part. RIGHT CORONARY ARTERY: Right coronary artery is a large dominant vessel and is free of stenosis. CONCLUSIONS: Patent stent within the LAD, mild to moderate nonobstructive disease involving circumflex coronary artery and mild nonobstructive disease involving proximal right coronary artery. PLAN: I told the patient that his symptoms are noncardiac in origin, and his management is going to be in the form of continued medical therapy. MMODL / IJN: [id number] /
[2019-11-03 13:25] VITALS: BP 113/57; PULSE 76
== END ==
LOC: CATHCVL 06:25
PROVIDERS: ATTEND Internal Medicine Cardiovascular Disease
DX: I25.110 Atherosclerotic heart disease of native coronary artery with unstable angina pectoris (principal); R93.1 Abnormal findings on diagnostic imaging of heart and coronary circulation; R06.02 Shortness of breath; I10 Essential (primary) hypertension; E78.2 Mixed hyperlipidemia; I65.23 Occlusion and stenosis of bilateral carotid arteries; F32.9 Major depressive disorder, single episode, unspecified; Z95.5 Presence of coronary angioplasty implant and graft; Z79.899 Other long term (current) drug therapy; Z79.82 Long term (current) use of aspirin; Z79.890 Hormone replacement therapy; Z87.891 Personal history of nicotine dependence; Z82.49 Family history of ischemic heart disease and other diseases of the circulatory system
CPT/HCPCS: 93458; 80048; 85025; C1769 ×2; C1760; C1894; J2250; J2001; J3010; Q9967

== ENCOUNTER 2020-11-14 07:39 | Day surgery (SDC) | payer MEDICARE ==
[2020-11-12 14:56] VITALS: BMI 38.0
[2020-11-14] MEDS ORDERED: LIDOCAINE 1% (10MG/ML) FOR IV START INTRADERMA PRN (07:58)
[2020-11-14] MEDS ORDERED: LACTATED RINGERS 1,000 ML IV SCH (07:58)
[2020-11-14 08:07] VITALS: TEMP 97.8
[2020-11-14] MEDS ORDERED: LACTATED RINGERS 1,000 ML IV ONE (08:08)
[2020-11-14] MEDS ORDERED: PROPOFOL 10 MG/ML 20 ML VIAL IV ONE (08:48)
--- NOTE | 2020-11-14 08:52 | P.GSHP ---
History of Present Illness H&P Date: 11/14/20 Chief Complaint: GI bleed This is a 69-year-old male who presents today for colonoscopy. Patient underwent a colo Guard test which was positive. She denies a significant GI complaints. Past Medical History Past Medical History: Coronary Artery Disease (CAD), Cancer, GERD/Reflux, Hyperlipidemia, Hypertension, Osteoarthritis (OA), Thyroid Disorder Additional Past Medical History / Comment(s): SOB, positive occult stool, HX BILATERAL PNEUMOTHORAX, occassional tinnitus, States has hx. of Blebs in his lungs . hx Basal cell skin cancer on nose History of Any Multi-Drug Resistant Organisms: None Reported Past Surgical History: Back Surgery, Cholecystectomy, Heart Catheterization With Stent, Hernia Repair, Orthopedic Surgery Additional Past Surgical History / Comment(s): VATS procedure,Hemorroidectomy, back surgery d/t bulging disc, right hand surgery to repair severed tendon, skin cancer on nose removed. Past Anesthesia/Blood Transfusion Reactions: No Reported Reaction Date of Last Stent Placement:: 2012 Smoking Status: Former smoker - Past Family History Mother Family Medical History: Cancer Additional Family Medical History / Comment(s): lung Father Family Medical History: Cancer Additional Family Medical History / Comment(s): Liver cancer. Medications and Allergies Home Medications Medication Instructions Recorded Confirmed Type Atorvastatin [Lipitor] 80 mg PO HS 02/19/15 11/12/20 History Sertraline [Zoloft] 100 mg PO HS 02/19/15 11/12/20 History Levothyroxine Sodium [Synthroid] 175 mcg PO QAM 07/27/18 11/12/20 History Metoprolol Tartrate [Lopressor] 50 mg PO BID 11/02/19 11/12/20 History Aspirin 325 mg PO DAILY PRN 11/12/20 11/12/20 History Fenofibrate Nanocrystallized 48 mg PO DAILY 11/12/20 11/12/20 History [Fenofibrate] Allergies Allergy/AdvReac Type Severity Reaction Status Date / Time venom-honey bee Allergy Swelling Verified 11/12/20 14:40 [bee venom (honey bee)] Surgical - Exam Vital Signs Temp Pulse Resp BP Pulse Ox 97.8 F 88 18 171/90 98 11/14/20 08:06 11/14/20 08:06 11/14/20 08:06 11/14/20 08:06 11/14/20 08:06 - General well developed, well nourished, no distress - Eyes PERRL - ENT normal pinna - Neck no masses - Respiratory normal expansion - Cardiovascular Rhythm: regular - Abdomen Abdomen: soft, non tender Assessment and Plan Assessment: GI bleed. We'll perform colonoscopy.
--- NOTE | 2020-11-14 09:35 | P.OP ---
Date of Procedure: 11/14/20 Preoperative Diagnosis: Blood in stool Postoperative Diagnosis: Sigmoid colon polyp Procedure(s) Performed: Colonoscopy Anesthesia: MAC Surgeon: Vidal Wynne Pathology: other (Sigmoid colon polyp) Condition: stable Disposition: PACU Description of Procedure: Patient's placed on the endoscopy table in the lateral position. He received IV sedation. Digital rectal exam was performed which revealed no abnormalities. The flexible colonoscope was then placed patient anus and passed throughout the entire colon. Ileocecal valve was visually. The cecum, ascending and transverse colon appeared normal. The descending colon appeared normal. In the sigmoid colon was several small flat polyp was removed with the cold forcep. Scope was brought back the rectum this appeared normal. Scope was withdrawn for patient. No evidence of any GI bleed
[2020-11-14 09:39] VITALS: RESP 16
[2020-11-14 09:53] VITALS: BP 111/75; PULSE 87
== END 2020-11-14 10:24 | disposition home or self-care (01) ==
LOC: ORWHC2ENDO 07:39
PROVIDERS: ATTEND Surgery
DX: D12.5 Benign neoplasm of sigmoid colon (principal); K21.9 Gastro-esophageal reflux disease without esophagitis; E78.5 Hyperlipidemia, unspecified; I10 Essential (primary) hypertension; I25.10 Atherosclerotic heart disease of native coronary artery without angina pectoris; M19.90 Unspecified osteoarthritis, unspecified site; E03.9 Hypothyroidism, unspecified; F32.9 Major depressive disorder, single episode, unspecified; F41.9 Anxiety disorder, unspecified; Z79.82 Long term (current) use of aspirin; Z87.891 Personal history of nicotine dependence; Z85.828 Personal history of other malignant neoplasm of skin; Z90.49 Acquired absence of other specified parts of digestive tract; Z79.899 Other long term (current) drug therapy; Z79.890 Hormone replacement therapy
CPT/HCPCS: 45380; 88305; J2704

== ENCOUNTER 2021-04-30 09:52 | Day surgery (SDC) | payer MEDICARE ==
[2021-04-28 10:22] VITALS: BMI 38.0
--- NOTE | 2021-04-29 11:27 | P.HPOR ---
History of Present Illness H&P Date: 04/29/21 Chief Complaint: Left small and ring finger Dupuytren's Disease Subjective: This is a 70 year old male that presents today for initial evaluation regarding left small and ring finger flexion deformities due to Dupuytrens disease. Patient states he has xiaflex injections in the small finger about 2 years ago, he had good initial results but noticed rapid recurrence in the last year, specifically in the small finger and ring finger. He states it is not painful but more of an annoyance due to the limited mobility in the fingers. He denies any paresthesias or recent injury. Physical Examination: LUE: AIN/PIN/Radial/Ulnar/Median motor intact. Radial/Ulnar/Median SILT. 2+/4 Radial/Ulnar pulses palpated. 5/5 APB, 5/5 FDI. Negative Finkelsteins, negative CMC grind, negative Durkan's compression. Small finger PIP contracture of 85 degrees with palpable cord. Ring finger 40 degree MCP contracture with thick central cord presenet. Imaging: X-Rays of the left hand demonstrate flexion contracture of ring and small fingers, no obvious advanced arthritic changes. Impression: 1.)Right ring and small finger Dupuytren's Disease Plan: Diagnosis and treatment options were discussed with the patient. Due to recurrence after xiaflex resulting in persistent flexion deformities of the ring and small finger that are now interfering with his daily life I recommend surgical intervention with partial palmar fasciectomy. Risks and benefits of surgery including recurrence, bleeding, infection, damage to surrounding tissue were discussed and he wishes to proceed with surgery . We discussed due to the severity of the small finger contracture he may not get full extension back and may require capsular or check-rein ligament release and he expressed understanding. -Justin Foreman DO Orthopedic Hand/Upper Extremity Surgeon Past Medical History Past Medical History: Coronary Artery Disease (CAD), Cancer, GERD/Reflux, Hyperlipidemia, Hypertension, Osteoarthritis (OA), Thyroid Disorder Additional Past Medical History / Comment(s): SOB, HX BILATERAL PNEUMOTHORAX, occassional tinnitus, States has hx. of Blebs in his lungs . hx Basal cell skin cancer on nose History of Any Multi-Drug Resistant Organisms: None Reported Past Surgical History: Back Surgery, Cholecystectomy, Heart Catheterization With Stent, Hernia Repair, Orthopedic Surgery Additional Past Surgical History / Comment(s): VATS procedure,Hemorroidectomy, back surgery d/t bulging disc, right hand surgery to repair severed tendon, skin cancer on nose removed. COLONOSCOPY Past Anesthesia/Blood Transfusion Reactions: No Reported Reaction Date of Last Stent Placement:: 2012 Smoking Status: Former smoker - Past Family History Mother Family Medical History: Cancer Additional Family Medical History / Comment(s): lung Father Family Medical History: Cancer Additional Family Medical History / Comment(s): Liver cancer. Medications and Allergies Home Medications Medication Instructions Recorded Confirmed Type Atorvastatin [Lipitor] 80 mg PO HS 02/19/15 04/28/21 History Sertraline [Zoloft] 100 mg PO HS 02/19/15 04/28/21 History Levothyroxine Sodium [Synthroid] 175 mcg PO QAM 07/27/18 04/28/21 History Metoprolol Tartrate [Lopressor] 50 mg PO BID 11/02/19 04/28/21 History Aspirin 325 mg PO DAILY PRN 11/12/20 04/28/21 History Fenofibrate Nanocrystallized 48 mg PO DAILY 11/12/20 04/28/21 History [Fenofibrate] Allergies Allergy/AdvReac Type Severity Reaction Status Date / Time venom-honey bee Allergy Swelling Verified 04/28/21 10:12 [bee venom (honey bee)] Physical Examination Osteopathic Statement: *. No significant issues noted on an osteopathic structural exam other than those noted in the History and Physical/Consult.
[~2021-04-30 09:52] MED LIST changes: -ALPRAZolam 0.25 MG TAB PO PRN; -ALPRAZolam 0.5 MG TAB PO PRN; -ASPIRIN 325 MG TAB PO ONE; +HYDROmorphone 0.5 MG/0.5 ML SYRINGE IVP PRN; -IOPAMIDOL-370 125ML BTL INJ ONE; +LACTATED RINGERS 1,000 ML IV SCH; +LIDOCAINE 1% (10MG/ML) FOR IV START INTRADERMA PRN; -LIDOCAINE 1% INJ 10MG/ML (20 ML MDV) ONE; -LIDOCAINE 1% INJ 10MG/ML (20 ML MDV) SQ ONE; -MIDAZOLAM 2 MG/2 ML VIAL IV ONE; -NITROGLYCERIN SL TABS 0.4 MG TAB SUBLINGUAL PRN; +ONDANSETRON 4 MG/2 ML VIAL IVP ONE; -RX INFO: IV CONTRAST WAS GIVEN 1 EACH MISC MISCELLANE PRN; -SODIUM CHLORIDE 0.9% 1,000 ML IV SCH; -SODIUM CHLORIDE 0.9% 1,000 ML in EMPTY BAG 1 BAG IV ONE; +ceFAZolin 3 GM in SODIUM CHLORIDE 0.9% 100 ML IVPB PRN; -fentaNYL (PF) 50 MCG/ML 2 ML AMP IV ONE; -fentaNYL (PF) 50 MCG/ML 2 ML AMP ONE
[2021-04-30] MEDS ORDERED: DEXAMETHASONE SOD PHOSPHATE 4 MG/ML 1 ML VIAL IVP ONE (10:47)
[2021-04-30] MEDS ORDERED: FAMOTIDINE 20 MG/2 ML VIAL IVP ONE (10:50)
[2021-04-30] MEDS ORDERED: PROPOFOL 10 MG/ML 20 ML VIAL IV ONE (11:02)
[2021-04-30] MEDS ORDERED: ePHEDrine 50 MG/ML 1 ML VIAL ONE (11:02)
[2021-04-30] MEDS ORDERED: HYDROmorphone (PF) 1 MG/ML ONE (11:02)
[2021-04-30] MEDS ORDERED: MIDAZOLAM 2 MG/2 ML VIAL ONE (11:02)
[2021-04-30] MEDS ORDERED: LIDOCAINE 1% INJ 10MG/ML (20 ML MDV) ONE (11:02)
[2021-04-30] MEDS ORDERED: fentaNYL (PF) 50 MCG/ML 2 ML AMP ONE (11:02)
[2021-04-30] MEDS ORDERED: BUPIVACAINE (PF) 0.5% 30 ML VIAL SQ ONE ×2 (11:23→12:40)
[2021-04-30 13:03] VITALS: TEMP 97.3
[2021-04-30 14:10] VITALS: RESP 16
[2021-04-30 14:21] VITALS: BP 110/64; PULSE 68
--- NOTE | 2021-05-01 12:12 | P.OP ---
Date of Procedure: 04/30/21 Preoperative Diagnosis: 1.) Dupuytrens contracture right ring finger 2.) Dupuytrens contracture right small finger Postoperative Diagnosis: 1.) Dupuytrens contracture right ring finger 2.) Dupuytrens contracture right small finger Procedure(s) Performed: 1.) Right ring finger palmar fasciectomy. (48246) 2.) Right small finger palmar fasciectomy (Additional finger). ([id number]) Anesthesia: GETA Surgeon: Justin Foreman Inner Layer Scrubber Tender #1: Hugh Andrea Estimated Blood Loss (ml): 0 Pathology: other (Dupuytrens tissue right hand) Condition: stable Disposition: PACU Description of Procedure: This is a 70 year old male who presents today for surgical intervention for his right ring and small finger Dupuytren's contracture that has failed conservative treatment. Risks and benefits of surgery were discussed with the patient including bleeding, damage to surrounding tissue, infection, recurrence, need for further surgery as well as risks of anesthesia including pulmonary embolism and even and the patient wished to proceed with surgical intervention. The patient was seen in the pre-operative area by myself. Consent and H&P were completed and updated. The correct extremity was marked in the pre-operative area by myself and all other questions were answered. Operative Narrative: The patient was brought to the operating room by the department of anesthesia. They remained on the portable stretcher and a rolling hand table was brought to the side of the operative extremity. Pre-operative time out was performed indicating the correct patient, procedure and laterality. All in the room agreed. Pre-operative antibiotics were given prior to skin incision. The patient was then drifted off to sleep by the department of anesthesia. A nonsterile tourniquet was then applied to the operative extremity and the right upper extremity was then prepped and draped in normal sterile fashion. The operative extremity was the exsanguinated with an esmarch bandage and the tourniquet was inflated to 250mmHg. 15 blade scalpel was then used to make a incision in a Masood type fashion of the right ring finger Dupuytren's cord from the level of the mid palm to the level of the PIP joint crease. Blunt dissection was taken down to reveal the thickened Dupuytrens chord originating from the palmar fascia. Neurovascular bundles were identified and protected and blunt tenotomy scissors and combination of 15 blade scalpel were used to the pathologic fascial tissues from surrounding structures. The thick fascial tissue was well dissected out from deep and superficial tissues and released from it's proximal attachment to the palmar fascia and then released in a proximal to distal fashion. After excision at the distal portion attachment at the level of the PIP joint crease the finger was able to be fully extended. Attention was then drawn to the small finger. 15 blade scalpel was used to make an incision in a Masood type fashion of the right small finger centered over the palpable cord from the level of the distal palm to the DIP joint. Significant PIP flexion contracture was identified. Neurovascular bundles were identified and protected and blunt tentomy scissors and combination of 15 blade scalpel were used to the pathologic fascial tissues from surrounding structures. The thick fascial tissue was well dissected out from deep and superficial tissues and released from it's proximal attachment to the palmar fascia and then released in a proximal to distal fashion. The radial digital nerve of the small digit appeared to translated superficially and centrally consistent with a spiral nerve which was identified, protected and released from it's surrounding tissues. After excision at the distal portion attachment at the level of the PIP joint crease the finger was able to be near fully extended. The wound was then irrigated and skin closure was performed with 4-0 nylon sutures. 15cc's total of 0.5% bupivicaine was injected to perform digital blocks of the ring and small fingers. Large bu lky soft dressing with fluffs, adaptic, bacitracin, cast padding and yaneth wrap was applied. Tourniquet was let down and all digits had immediate perfusion. The patient was then woken by the department of anesthesia and transferred to PACU in stable condition. Hugh CURRY was present for the case in it's entirety and assisted in retraction and protection of vital neurovascular structures. Justin Foreman D.O. Orthopedic Hand/Upper Extremity Surgeon
== END 2021-04-30 14:22 | disposition home or self-care (01) ==
LOC: OR 09:52
PROVIDERS: ATTEND Orthopaedic Surgery Hand Surgery
DX: M72.0 Palmar fascial fibromatosis [Dupuytren] (principal); I25.10 Atherosclerotic heart disease of native coronary artery without angina pectoris; K21.9 Gastro-esophageal reflux disease without esophagitis; E78.5 Hyperlipidemia, unspecified; I10 Essential (primary) hypertension; E07.9 Disorder of thyroid, unspecified; M19.90 Unspecified osteoarthritis, unspecified site; Z87.891 Personal history of nicotine dependence
CPT/HCPCS: 26123; 26125; 88304; J2250; J1100; J0690; J2405; J2001; J3010; J1170; J2704

== ENCOUNTER 2022-03-21 20:05 | Emergency (ER) | payer MEDICARE ==
[2022-03-21 21:00] VITALS: BP 159/89; PULSE 91; RESP 18; TEMP 98.9
[2022-03-21] MEDS ORDERED: AMOXIC-POT CLAV 875-125MG 1 EACH TAB PO STA (21:10)
[2022-03-21] MEDS ORDERED: ACET/COD 300 MG/30 MG STARTER PACK 6 TAB BTL PO STA (21:10)
--- NOTE | 2022-03-21 21:11 | ED ---
ENT HPI - General Chief complaint: Dental/Oral Stated complaint: Dental issue Time Seen by Provider: 03/21/22 20:32 Source: patient Mode of arrival: ambulatory Limitations: no limitations - History of Present Illness Initial comments: Patient is a 71-year-old male presenting with chief complaint of dental pain. Patient states that he lost a crown to the left lower side several weeks ago. States that this morning when he woke up he had intense pain as well as swelling to the left lower jaw. He denies any fever or chills. No problems breathing or swallowing. No headache or neck pain. No vision or hearing changes. Patient states that he has an appointment with his dentist scheduled for Wednesday. - Related Data Home Medications Medication Instructions Recorded Confirmed Atorvastatin [Lipitor] 80 mg PO HS 02/19/15 04/28/21 Sertraline [Zoloft] 100 mg PO HS 02/19/15 04/28/21 Levothyroxine Sodium [Synthroid] 175 mcg PO QAM 07/27/18 04/28/21 Metoprolol Tartrate [Lopressor] 50 mg PO BID 11/02/19 04/28/21 Aspirin 325 mg PO DAILY PRN 11/12/20 04/28/21 Fenofibrate Nanocrystallized 48 mg PO DAILY 11/12/20 04/28/21 [Fenofibrate] Previous Rx's Medication Instructions Recorded Amoxic-Pot Clav 875-125Mg 1 tab PO BID 7 Days #14 tab 03/21/22 [Augmentin 875-125] Allergies Allergy/AdvReac Type Severity Reaction Status Date / Time venom-honey bee Allergy Swelling Verified 03/21/22 20:11 [bee venom (honey bee)] Review of Systems ROS Statement: Those systems with pertinent positive or pertinent negative responses have been documented in the HPI. ROS Other: All systems not noted in ROS Statement are negative. Past Medical History Past Medical History: Cancer, Hypertension Additional Past Medical History / Comment(s): SOB, positive occult stool, HX BILATERAL PNEUMOTHORAX, occassional tinnitus, States has hx. of Blebs in his lungs . hx Basal cell skin cancer on nose History of Any Multi-Drug Resistant Organisms: None Reported Past Surgical History: Back Surgery, Cholecystectomy, Heart Catheterization With Stent, Hernia Repair, Orthopedic Surgery Additional Past Surgical History / Comment(s): VATS procedure,Hemorroidectomy, back surgery d/t bulging disc, right hand surgery to repair severed tendon, skin cancer on nose removed. Past Anesthesia/Blood Transfusion Reactions: No Reported Reaction Date of Last Stent Placement:: 2012 Past Psychological History: Anxiety, Depression Smoking Status: Former smoker Past Alcohol Use History: None Reported Past Drug Use History: None Reported - Past Family History Mother Family Medical History: Cancer Additional Family Medical History / Comment(s): lung Father Family Medical History: Cancer Additional Family Medical History / Comment(s): Liver cancer. General Exam Limitations: no limitations General appearance: alert, in no apparent distress Head exam: Present: atraumatic, normocephalic, normal inspection Eye exam: Present: normal appearance Expanded Teeth exam: Present: dental caries, dental tenderness #, gingival enlargement Throat exam: normal inspection Neck exam: Present: normal inspection. Absent: tenderness Respiratory exam: Present: normal lung sounds bilaterally. Absent: respiratory distress, wheezes, rales, rhonchi, stridor Cardiovascular Exam: Present: regular rate, normal rhythm, normal heart sounds. Absent: systolic murmur, diastolic murmur, rubs, gallop, clicks Neurological exam: Present: alert, oriented X3, CN II-XII intact Psychiatric exam: Present: normal affect, normal mood Skin exam: Present: warm, dry, intact, normal color. Absent: rash Course Vital Signs 03/21/22 03/21/22 20:06 20:59 Temperature 99.1 F 98.9 F Pulse Rate 114 H 91 Respiratory 24 18 Rate Blood Pressure 172/94 159/89 O2 Sat by Pulse 98 95 Oximetry Medical Decision Making - Medical Decision Making Was pt. sent in by a medical professional or institution (, PA, MALT SPECIFICATIONS CONTROL ASSISTANT, urgent care, hospital, or detention...) When possible be specific @ -No Did you speak to anyone other than the patient for history (EMS, parent, family, police, friend...)? What history was obtained from this source @ -No Did you review nursing and triage notes (agree or disagree)? Why? @ -I reviewed and agree with nursing and triage notes Were old charts reviewed (outside hosp., previous admission, EMS record, old EKG, old radiological studies, urgent care reports/EKG's, detention records)? Report findings @ -No old charts were reviewed Differential Diagnosis (chest pain, altered mental status, abdominal pain women, abdominal pain men, vaginal bleeding, weakness, fever, dyspnea, syncope, headache, dizziness, GI bleed, back pain, seizure, CVA, palpatations, mental health)? @ -Differential includes dental abscess, Waylon's angina, cellulitis, this is not an all inclusive list EKG interpreted by me (3pts min.). @ -As above X-rays interpreted by me (1pt min.). @ -None done CT interpreted by me (1pt min.). @ -None done U/S interpreted by me (1pt. min.). @ -None done What testing was considered but not performed or refused? (CT, X-rays, U/S, labs)? Why? @ -None What meds were considered but not given or refused? Why? @ -None Did you discuss the management of the patient with other professionals (professionals i.e. , PA, MALT SPECIFICATIONS CONTROL ASSISTANT, lab, RT, psych nurse, social sciences chair, pilot plant technician, teacher, fare enforcement officer, correctional case manager)? Give summary @ -No Was smoking cessation discussed for >3mins.? @ -No Was critical care preformed (if so, how long)? @ -No Were there social determinants of health that impacted care today? How? (Homelessness, low income, unemployed, alcoholism, drug addiction, t ransportation, low edu. Level, literacy, decrease access to med. care, longterm, rehab)? @ -No Was there de-escalation of care discussed even if they declined (Discuss DNR or withdrawal of care, Hospice)? DNR status @ -No What co-morbidities impacted this encounter? (DM, HTN, Smoking, COPD, CAD, Cancer, CVA, ARF, Chemo, Hep., AIDS, mental health diagnosis, sleep apnea, morbid obesity)? @ -HTN Was patient admitted / discharged? Hospital course, mention meds given and route, prescriptions, significant lab abnormalities, going to OR and other pertinent info. @ -Patient is a 71-year-old male presenting with chief complaint of dental pain and swelling to the left lower jaw that started today. Patient notes that he lost a crown several weeks ago. On physical examination there is swelling and tenderness to left lower jaw, there is gingival enlargement. Appears consistent with dental abscess. Attempted to drain the abscess, however was not able to express any purulent fluid. Patient is started on Augmentin and instructed to follow-up with his dentist. He informs me he has appointment on Wednesday morning. Take Motrin and Tylenol nausea for pain control. Follow-up with PCP. Report back to ER with any new or worsening symptoms. Discussed return parameters and answered all questions. Patient conveyed verbal understanding and agreed to the plan. I discussed this case in detail with my attending Dr. Ac Undiagnosed new problem with uncertain prognosis? @ -No Drug Therapy requiring intensive monitoring for toxicity (Heparin, Nitro, Insulin, Cardizem)? @ -No Were any procedures done? @ -No Diagnosis/symptom? @ -dental abscess Acute, or Chronic, or Acute on Chronic? @ -acute Uncomplicated (without systemic symptoms) or Complicated (systemic symptoms)? @ -Uncomplicated Side effects of treatment? @ -No Exacerbation, Progression, or Severe Exacerbation? @ -No Disposition Clinical Impression: Dental abscess Disposition: HOME SELF-CARE Condition: Good Instructions (If sedation given, give patient instructions): Dental Abscess (ED) Additional Instructions: Follow up with dentist at scheduled appointment on Wednesday. Report back to ER with any new or worsening symptoms. Take medication as prescribed. Prescriptions: Amoxic-Pot Clav 875-125Mg [Augmentin 875-125] 1 tab PO BID 7 Days #14 tab Is patient prescribed a controlled substance at d/c from ED?: No Referrals: Jagdish Pinto DO [Primary Care Provider] - 1-2 days Time of Disposition: 21:11
== END 2022-03-21 21:29 | disposition home or self-care (01) ==
LOC: EC 20:05
DX: K04.7 Periapical abscess without sinus (principal); I10 Essential (primary) hypertension; F41.9 Anxiety disorder, unspecified; F32.A Depression, unspecified; Z87.891 Personal history of nicotine dependence; Z91.030 Bee allergy status; Z79.82 Long term (current) use of aspirin; Z79.899 Other long term (current) drug therapy
CPT/HCPCS: 99282

== ENCOUNTER → 2022-09-22 | Outpatient (CLI) | payer MEDICARE ==
[2022-09-22 11:04] LABS: % Iron Saturation 16.23 (15.00-50.00)
== END | disposition home or self-care (01) ==
LOC: LABWHC1 07:29
PROVIDERS: ATTEND Internal Medicine Critical Care Medicine
DX: G25.81 Restless legs syndrome (principal)
CPT/HCPCS: 36415; 82728; 83540; 83550

== ENCOUNTER → 2023-02-01 | Outpatient (CLI) | payer MEDICARE ==
--- NOTE | 2023-02-01 19:05 | US ---
EXAMINATION TYPE: US arterial LE single level DATE OF EXAM: 02/01/2023 10:50 AM CLINICAL INDICATION: Male, 72 years old with history of R09.89 OTH SYMPTOMS AND SIGNS INVOLVING THE C IRC A; leg pain burning and tingling at night History of: Smoker: previous Hypertension: on meds Diabetic: pre-diabetic Hyperlipidemia: on meds TIA/CVA: N Previous Vascular Surgery: N CAD: N TX: N Vascular Ulcers: N Claudication: N Gangrene: N Doppler Waveforms: Right: Multiphasic Left: Multiphasic Right Brachial Pressure: 116 Left Brachial Pressure: 118 Ankle-Brachial Indices: Right: 1.2 Left: 1.2 Toe Brachial Indices: Right: non-occlusive Left: non-occlusive Monophasic waveforms appear to be through the lower extremities bilaterally. Some mild biphasic wavef orms may be on the left popliteal to dorsalis pedis. IMPRESSION: 1. Monophasic waveforms through the bilateral lower extremities suggesting proximal stenosis. Conside r aortic runoff.
== END | disposition home or self-care (01) ==
LOC: RADUSWWP 10:12
PROVIDERS: ATTEND Family Medicine
DX: R09.89 Other specified symptoms and signs involving the circulatory and respiratory systems (principal); I10 Essential (primary) hypertension; E78.5 Hyperlipidemia, unspecified
CPT/HCPCS: 93922

== ENCOUNTER → 2023-09-01 | Outpatient (CLI) | payer MEDICARE ==
[2023-09-01 16:05] LABS: ALT 29 U/L (10-49); AST 24 U/L (14-35); Chol/HDL Ratio 4.41 Ratio; LDL Cholesterol,Calculated 68.7 mg/dL (0.0-131.0)
== END | disposition home or self-care (01) ==
LOC: LABWHC1 06:58
PROVIDERS: ATTEND Internal Medicine Cardiovascular Disease
DX: E78.2 Mixed hyperlipidemia (principal)
CPT/HCPCS: 36415; 80061; 84450; 84460